=== PATIENT | female | born 1945 | race Caucasian/White ===

== ENCOUNTER 2020-04-02 09:41 | Outpatient (CLI) | payer MEDICARE, SELFPAY ==
--- NOTE | ~2020-04-02 | DEXA_ITS ---
Bone Density Report Name: Emmanuelle Tena Age: 75 Sex: Female Ethnicity: White Date of : 1945 Indication: postmenopausal; height loss; Referring Provider: PHYSICIAN NOT ON STAFF Study: Bone densitometry was performed. Exam Date: April 02, 2020 Accession number: [id number] Bone Density: Region BMD T-score Z-score Classification AP Spine (L1, L2, L3) 0.875 -1.3 0.9 Osteopenia Femoral Neck (Left) 0.708 -1.3 0.7 Osteopenia Total Hip (Left) 0.805 -1.1 0.5 Osteopenia Total Hip Bilateral Avg 0.792 -1.2 0.4 Osteopenia Femoral Neck (Right) 0.698 -1.4 0.6 Osteopenia Total Hip (Right) 0.778 -1.3 0.3 Osteopenia World Health Organization criteria for BMD impression classify patients as: Normal (T-score at or above -1.0), Osteopenia (T-score between -1.0 and -2.5), or Osteoporosis (T-score at or below -2.5). 10-year Fracture Risk(1): Major Osteoporotic Fracture 10% Hip Fracture 1.5% Reported Risk Factors: [place] (), Neck BMD=0.698, BMI=29.2 (1) FRAX(R) Version 3.08. Fracture probability calculated for an untreated patient. Fracture probability may be lower if the patient has received treatment. Clinical Information Provided by Patient: Has used the following medications: Vitamin D Patient maximum height was 66 Menopause Age: 53 Drinks caffeinated beverages Onset of menses at age 13 Number of children 2 Impression: The patient has low bone mass, based on the Right Femoral Neck T-score. The patient has an estimated ten-year risk of hip fracture of 1.5% and an estimated ten-year risk of major fracture of 10%, based on the WHO FRAX algorithm. Discussion: BONE DENSITY IS LOW AT ONE OR MORE SKELETAL SITES. This patient's lowest T-score is low at one or more skeletal sites. It meets the World Health Organization's (WHO) criteria for ?low bone mass? (T-score between -1.0 and -2.5). The patient's 10-year risk of fracture as calculated by FRAX is less than the threshold where pharmacological therapy is recommended by the National Osteoporosis Foundation (NOF). However, all treatment decisions require clinical judgment and consideration of individual patient factors, including patient preferences, comorbidities, previous drug use, risk factors not captured in the FRAX model (e.g., frailty, falls, vitamin D deficiency, increased bone turnover, interval significant decline in bone density) and possible under or overestimation of fracture risk by FRAX. The patient should follow a healthful lifestyle (good nutrition with adequate calcium and vitamin D, and appropriate weight-bearing exercise). Follow-Up: Consider repeating this study in 2 to 3 years to reassess this patient's status, or sooner if there is some new clinical indication. Reported by: ONEIL on 04/02/2020 10:08:00 AM.
== END 2020-04-02 09:42 | disposition home or self-care (01) ==
LOC: ANHIMG 09:48
PROVIDERS: PCP Internal Medicine
DX: N95.9 Unspecified menopausal and perimenopausal disorder (principal); M85.88 Other specified disorders of bone density and structure, other site; M85.852 Other specified disorders of bone density and structure, left thigh; M85.851 Other specified disorders of bone density and structure, right thigh
CPT/HCPCS: 77080

== ENCOUNTER 2020-04-22 10:26 | Outpatient (CLI) | payer MEDICARE, SELFPAY ==
--- NOTE | ~2020-04-22 | MM_ITS ---
EXAMINATION: MM screening cyril BI w sergey HISTORY: Screening mammogram TECHNIQUE: Craniocaudal and mediolateral oblique 3-D tomosynthesis images were obtained and synthetic 2-D images were generated. CAD analysis was submitted and interpreted. COMPARISON: 06/07/2018, 03/31/2017, 03/31/2016 bilateral digital screening mammogram examinations BREAST PARENCHYMAL COMPOSITION: There are scattered areas of fibroglandular density. FINDINGS: There is no evidence of suspicious mass, calcification, or architectural distortion to sugg est malignancy in either breast. There has been no suspicious interval change. IMPRESSION: 1. No mammographic evidence of malignancy. 2. Recommend routine screening mammography in one year. BI-RADS Category 1: Negative Reviewed, dictated and finalized at location A.
== END 2020-04-22 10:27 | disposition home or self-care (01) ==
PROVIDERS: PCP Internal Medicine
DX: Z12.31 Encounter for screening mammogram for malignant neoplasm of breast (principal)
CPT/HCPCS: 77063; 77067

== ENCOUNTER → 2022-11-02 09:35 | Outpatient (CLI) | payer MEDICARE, SELFPAY ==
--- NOTE | ~2022-11-02 | DEXA_ITS ---
Bone Density Report Name: VERÓNICA CRUZ Age: 77 Sex: Female Ethnicity: White Date of : 1945 Indication: postmenopausal; screening for osteoporosis; height loss; prior fracture; Referring Provider: KATIE GREER Study: Bone densitometry was performed. Exam Date: November 02, 2022 Accession number: [id number] Bone Density: Region BMD T-score Z-score Classification AP Spine (L1, L2, L3) 0.880 -1.3 1.1 Osteopenia Femoral Neck (Left) 0.728 -1.1 1.0 Osteopenia Total Hip (Left) 0.823 -1.0 0.8 Normal Femoral Neck (Right) 0.722 -1.1 1.0 Osteopenia Total Hip (Right) 0.776 -1.4 0.5 Osteopenia Total Hip Mean 0.800 -1.2 0.7 Osteopenia World Health Organization criteria for BMD impression classify patients as: Normal (T-score at or above -1.0), Osteopenia (T-score between -1.0 and -2.5), or Osteoporosis (T-score at or below -2.5). 10-year Fracture Risk(1): Major Osteoporotic Fracture 15% Hip Fracture 2.3% Reported Risk Factors: [place] (), Neck BMD=0.722, BMI=31.0, previous fracture (1) FRAX(R) Version 3.08. Fracture probability calculated for an untreated patient. Fracture probability may be lower if the patient has received treatment. Clinical Information Provided by Patient: Has had a low trauma fracture Has used the following medications: Vitamin D, Calcium, Oral steroids Patient maximum height was 65 Menopause Age: 57 Does not regularly consume dairy products Drinks caffeinated beverages Onset of menses at age 14 Number of children 2 Impression: The patient has low bone mass, based on the Right Total Hip T-score. The patient has an estimated ten-year risk of hip fracture of 2.3% and an estimated ten-year risk of major fracture of 15%, based on the WHO FRAX algorithm. The patient has risk factors, including: previous fracture. Discussion: BONE DENSITY IS LOW AT ONE OR MORE SKELETAL SITES. This patient's lowest T-score is low at one or more skeletal sites. It meets the World Health Organization's (WHO) criteria for ?low bone mass? (T-score between -1.0 and -2.5). The patient's 10-year risk of fracture as calculated by FRAX is less than the threshold where pharmacological therapy is recommended by the National Osteoporosis Foundation (NOF). However, all treatment decisions require clinical judgment and consideration of individual patient factors, including patient preferences, comorbidities, previous drug use, risk factors not captured in the FRAX model (e.g., frailty, falls, vitamin D deficiency, increased bone turnover, interval significant decline in bone density) and possible under or overestimation of fracture risk by FRAX. The patient should follow a healthful lifestyle (good nutrition with adequate calcium and vitamin D, and appropriate weight-bearing exercise). Follow-
== END ==
PROVIDERS: PCP Family Medicine
DX: Z78.0 Asymptomatic menopausal state (principal); M85.89 Other specified disorders of bone density and structure, multiple sites
CPT/HCPCS: 77080

== ENCOUNTER 2023-05-21 09:33 | Outpatient (CLI) | payer MEDICARE, SELFPAY ==
--- NOTE | ~2023-05-21 | MM_ITS ---
EXAMINATION: MM screening cyril BI w sergey HISTORY: Screening mammogram TECHNIQUE: Craniocaudal and mediolateral oblique 3-D tomosynthesis images were obtained and synthetic 2-D images were generated. CAD analysis was submitted and interpreted. COMPARISON: 04/22/2020, 06/07/2018 bilateral screening mammogram examinations BREAST PARENCHYMAL COMPOSITION: There are scattered areas of fibroglandular density. FINDINGS: There is no evidence of suspicious mass, calcification, or architectural distortion to sugg est malignancy in either breast. There has been no suspicious interval change. IMPRESSION: 1. No mammographic evidence of malignancy. 2. Recommend routine screening mammography in one year. BI-RADS Category 1: Negative Reviewed, dictated and finalized at location A.
== END 2023-05-21 09:34 | disposition home or self-care (01) ==
PROVIDERS: PCP Family Medicine; Visit Provider Family Medicine
DX: Z12.31 Encounter for screening mammogram for malignant neoplasm of breast (principal)
CPT/HCPCS: 77063; 77067

== ENCOUNTER 2023-10-27 00:21 | Day surgery (SDC) | payer MEDICARE, SELFPAY ==
[2023-10-07 09:27] VITALS: BMI 28.8
--- NOTE | 2023-10-25 09:18 | SUR.PREOP ---
Patient called regarding upcoming procedure. Reviewed preop instructions, appointment times, and procedure prep.
--- NOTE | 2023-10-26 17:56 | PM.HPGS ---
History of Present Illness History of Present Illness Consent: Risks, benefits, and alternatives have been discussed and questions answered. Patient agrees to proceed with procedure. Chief complaint: Ulcerative colitis Narrative: Chantel Tena is a 78 year old female With a history of ulcerative colitis. She had her last colonoscopy 5 years ago. Biopsies then were inactive for colitis. Review of Systems Review of Systems: All systems reviewed & are unremarkable except as noted in HPI and below PMFSH Family History Family History Mother Patient's mother is Social History Social History Smoking status: Never smoker Second hand tobacco smoke exposure: No Alcohol intake: current Drinks per week: 5 Substance use: never Substance use type: does not use Living arrangements: with family Spiritual care concerns: No Meds Home Medications and Allergies Home Medications Medication Instructions Recorded Confirmed Type cholecalciferol (vitamin D3) 100 4,000 unit PO DAILY 09/11/19 10/07/23 History mcg (4,000 unit) capsule fexofenadine 180 mg tablet 180 mg PO DAILY 09/11/19 10/07/23 History (Esther Allergy) fluticasone propionate 50 2 spray intranasal DAILY PRN nasal 09/30/20 10/07/23 Rx mcg/actuation nasal congestion #47.4 mL spray,suspension ropinirole 1 mg tablet 1 mg PO .hs #90 tabs 09/30/20 10/07/23 Rx gabapentin 300 mg capsule 300 mg PO TID #270 caps 04/01/21 10/07/23 Rx sertraline 50 mg tablet (Zoloft) 50 mg PO DAILY #90 tabs 05/12/21 10/07/23 Rx chlorthalidone 25 mg tablet 25 mg PO DAILY 10/07/23 10/07/23 History levothyroxine 88 mcg tablet 88 mcg PO 5XW 10/07/23 10/07/23 History (Levoxyl) loperamide 2 mg capsule 2 mg PO QID PRN Diarrhea 10/07/23 10/07/23 History mesalamine 400 mg capsule (with 400 mg PO TID 10/07/23 10/07/23 History delayed release tablets inside) prednisone 5 mg tablet 5 mg PO TID 10/07/23 10/07/23 History vitamin E acetate 360 mg PO HS 10/07/23 10/07/23 History Allergies Allergy/AdvReac Type Severity Reaction Status Date / Time clindamycin Allergy Intermediate Rash Verified 10/27/23 10:33 Sulfa (Sulfonamide Allergy Intermediate RASH Verified 10/27/23 10:33 Antibiotics) tetracycline Allergy Intermediate FEELS LIKE Verified 10/27/23 10:33 SHE IS CRAWLING THE JACOBSEN adhesive tape Allergy Mild Other Verified 10/27/23 10:33 ampicillin Allergy Mild Rash Verified 10/27/23 10:33 codeine Allergy Mild Nausea Verified 10/27/23 10:33 hydrocodone Allergy Mild Nausea Verified 10/27/23 10:33 Penicillins Allergy Mild Rash Verified 10/27/23 10:33 Exam Const: General: alert Orientation/consciousness: patient oriented x3 Resp: Auscultation: clear to auscultation bilaterally Cardio: Rhythm: regular rhythm GI: GI Palp: Yes Soft to palpation and No Tenderness to palpation present (GI) Neuro: General: patient oriented x3 Assessment and Plan Assessment and plan (1) Ulcerative colitis, unspecified, without complications: Code(s): K51.90 - Ulcerative colitis, unspecified, without complications Status: Acute Assessment and Plan: Colonoscopy with possible biopsy or polypectomy or cautery or injection of substances.
[2023-10-27 10:36] VITALS: BP 114/67; PULSE 66; RESP 18; TEMP 36.3; O2SAT 98
[2023-10-27] MEDS: LACTATED RINGERS 1,000 ML 150 ML IV CONT (10:48)
--- NOTE | 2023-10-27 11:12 | WPDANESEPPF ---
Anes - Initial Pre Proc Eval Procedure: Operation Date: 10/27/23 11:30 Proposed Procedures p Colonoscopy - Tor Rodríguez MD Date/Time: 10/27/23 11:12 Surgeon: Tor Rodríguez MD Pre Op Diagnosis: Ulcerative colitis Patient Data Age: 78 Gender: F Height: 1.64 m Weight: 72.9 kg Last Vital Signs Temp 97.4 F L 10/27/23 10:36 Pulse 66 10/27/23 10:36 Resp 18 10/27/23 10:36 BP 114/67 10/27/23 10:36 Pulse Ox 98 10/27/23 10:36 O2 Del Method Room Air 10/27/23 10:36 Allergies Allergy/AdvReac Type Severity Reaction Status Date / Time clindamycin Allergy Intermediate Rash Verified 10/27/23 10:33 Sulfa (Sulfonamide Allergy Intermediate RASH Verified 10/27/23 10:33 Antibiotics) tetracycline Allergy Intermediate FEELS LIKE Verified 10/27/23 10:33 SHE IS CRAWLING THE JACOBSEN adhesive tape Allergy Mild Other Verified 10/27/23 10:33 ampicillin Allergy Mild Rash Verified 10/27/23 10:33 codeine Allergy Mild Nausea Verified 10/27/23 10:33 hydrocodone Allergy Mild Nausea Verified 10/27/23 10:33 Penicillins Allergy Mild Rash Verified 10/27/23 10:33 Home Medications Medication Instructions Recorded Confirmed Type cholecalciferol (vitamin D3) 100 4,000 unit PO DAILY 09/11/19 10/07/23 History mcg (4,000 unit) capsule fexofenadine 180 mg tablet 180 mg PO DAILY 09/11/19 10/07/23 History (Esther Allergy) fluticasone propionate 50 2 spray intranasal DAILY PRN nasal 09/30/20 10/07/23 Rx mcg/actuation nasal congestion #47.4 mL spray,suspension ropinirole 1 mg tablet 1 mg PO .hs #90 tabs 09/30/20 10/07/23 Rx gabapentin 300 mg capsule 300 mg PO TID #270 caps 04/01/21 10/07/23 Rx sertraline 50 mg tablet (Zoloft) 50 mg PO DAILY #90 tabs 05/12/21 10/07/23 Rx chlorthalidone 25 mg tablet 25 mg PO DAILY 10/07/23 10/07/23 History levothyroxine 88 mcg tablet 88 mcg PO 5XW 10/07/23 10/07/23 History (Levoxyl) loperamide 2 mg capsule 2 mg PO QID PRN Diarrhea 10/07/23 10/07/23 History mesalamine 400 mg capsule (with 400 mg PO TID 10/07/23 10/07/23 History delayed release tablets inside) prednisone 5 mg tablet 5 mg PO TID 10/07/23 10/07/23 History vitamin E acetate 360 mg PO HS 10/07/23 10/07/23 History Patient hx anesthesia problems: none Family hx anesthesia problems: none Results Review: All pre-operative results and documents have been reviewed as part of the pre-operative evaluation. [facility], [facility] Family History Family History Mother Patient's mother is Social History Social History Smoking status: Never smoker Second hand tobacco smoke exposure: No Alcohol intake: current Drinks per week: 5 Substance use: never Substance use type: does not use Living arrangements: with family Spiritual care concerns: No Anes - Eval Final PreProcedure Day of Procedure 10/27/23 11:12 Patient weight: normal Heart: regular rate and rhythm Lungs: clear to auscultation Airway: Mallampati scale class II Neurological: alert and oriented Last oral intake: >/= 8 hours Emergent: no Anesthetic plan: proceed Results Review: All pre-operative results and documents have been reviewed as part of the pre-operative evaluation. Informed Consent: The patient's anesthetic plan and its attendant risks and benefits were discussed with the patient/family/POA. Questions were solicited and answers provided to the satisfaction of the patient/family/POA.
[2023-10-27 11:54] VITALS: BP 91/52; PULSE 54; RESP 18; O2SAT 97
[2023-10-27 12:04] VITALS: BP 95/64; PULSE 59; RESP 16; O2SAT 99
[2023-10-27 12:14] VITALS: BP 137/72; PULSE 60; RESP 20; O2SAT 99
== END 2023-10-27 12:27 | disposition home or self-care (01) ==
PROVIDERS: PCP Family Medicine; Visit Provider Internal Medicine Gastroenterology
PROC: 0DJD8ZZ Inspection of Lower Intestinal Tract, Via Natural or Artificial Opening Endoscopic (ICD-10-PCS; CPT 45378; principal; 2023-10-27 11:30)
DX: K51.90 Ulcerative colitis, unspecified, without complications (principal); D12.5 Benign neoplasm of sigmoid colon; K57.30 Diverticulosis of large intestine without perforation or abscess without bleeding; M06.9 Rheumatoid arthritis, unspecified
CPT/HCPCS: 45380; 88305; J7120

== ENCOUNTER 2024-02-17 14:50 | Outpatient (CLI) | payer MEDICARE, SELFPAY ==
--- NOTE | ~2024-02-17 | CT_ITS ---
EXAMINATION: CT abdomen pelvis wo con DATE: 02/17/2024 15:10 INDICATION: Asymptomatic microscopic hematuria. TECHNIQUE: Computed tomography (CT) of the abdomen and pelvis was performed without intravenous contr ast. Automated exposure control and iterative reconstruction technique were employed. The dose-length product was 368.66 mGy-cm. COMPARISON: CT abdomen and pelvis 06/05/2014 FINDINGS: The visualized portions of the lung bases demonstrate mild atelectasis. No pleural effusion . The heart size is normal. No pericardial effusion. The liver is normal. The gallbladder is contract ed. Calcifications in the spleen are consistent with old granulomatous disease. The pancreas and adre nal glands are normal. There is mild atrophy of right kidney. Left kidney is normal. There is no urol ithiasis. There are fibroids in the uterus. There is a 3.6 cm cyst in left ovary. There is a large vo lume of stool in the colon. There are no pathologically enlarged lymph nodes. There is no free intrap eritoneal fluid. There is severe lumbar spondylosis. IMPRESSION: 1. No urolithiasis. 2. Mild atrophy of right kidney. 3. 3.6 cm cyst in the left ovary, likely benign. Pelvis ultrasound is recommended. Reviewed, dictated and finalized at location E. IMPRESSION: 1. No urolithiasis. 2. Mild atrophy of right kidney. 3. 3.6 cm cyst in the left ovary, likely benign. Pelvis ultrasound is recommend ed.
== END 2024-02-17 14:51 ==
PROVIDERS: Visit Provider Family Medicine
DX: R31.21 Asymptomatic microscopic hematuria (principal); N26.1 Atrophy of kidney (terminal); N83.202 Unspecified ovarian cyst, left side
CPT/HCPCS: 74176

== ENCOUNTER 2024-10-23 13:53 | Outpatient (CLI) | payer MEDICARE, SELFPAY ==
--- NOTE | ~2024-10-23 | MM_ITS ---
EXAMINATION: MM screening cyril BI w sergey HISTORY: Screening TECHNIQUE: Craniocaudal and mediolateral oblique 3-D tomosynthesis images were obtained and synthetic 2-D images were generated. CAD analysis was submitted and interpreted. COMPARISON: Comparison to multiple prior studies sequentially, with oldest reviewed study dated 01/2015. BREAST PARENCHYMAL COMPOSITION: Dense: The breasts are heterogeneously dense, which may obscure small masses FINDINGS: There is no evidence of suspicious mass, calcification, or architectural distortion to sugg est malignancy in either breast. There has been no suspicious interval change. IMPRESSION: 1. No mammographic evidence of malignancy. 2. Recommend routine screening mammography in one year. BI-RADS Category 1: Negative Reviewed, dictated and finalized at location B. [facility]
--- OUTSIDE RECORDS SUMMARY | 2024-10-23 14:03 | XMS_ITS | Referral Summary ---
Author Organization [facility] Address [address] [place] [phone] Care Team Providers Care Seafood Fisherman Name Role Phone Pete Molina MD Primary Care Provider Sergio Eastman MD Unavailable Daylin Wheatley MD Unavailable [phone] Tereso Crocker MD Unavailable [phone] Travis Choudhary MD Unavailable [phone] Gavino Dempsey MD Unavailable Sarah Adkins MD Unavailable [phone] Jak Bobo MD Unavailable [phone] Encounters Date Type Department Care Team Description 10/22/2024 Telephone [facility] Surgery [address] [place] [address] Medical Office Building 4 [address] [place] [address] Jelly Castro RMA 10/22/2024 2:30 PM BUILDING PERFORMANCE CONSULTANT Office Visit [facility] Obstetrics and Gynecology [address] [facility] 7th Floor [address] [place] [address] Pau Angel MD Left ovarian cyst; Uterine leiomyoma, unspecified location; Adenocarcinoma of rectum (HCC); Cyst of ovary, unspecified laterality 10/18/2024 Telephone [facility] Surgery [address] [place] [address] Medical Office Building [address] [place] [phone] Jelly Dunn, LINDA 10/16/2024 Telephone [facility] Ophthalmology [address] [facility] 6th Floor [place] [phone] William Clarke MD 10/11/2024 Orders Only [facility] Gastroenterology at [address] [place] [address] Mark Raines MD Ulcerative colitis without complications, unspecified location (HCC) 10/10/2024 Telephone [facility] Gastroenterology at [address] [place] [address] Mark Raines MD 10/02/2024 9:38 AM BUILDING PERFORMANCE CONSULTANT - 10/02/2024 11:59 PM BUILDING PERFORMANCE CONSULTANT Hospital Encounter [facility] Ambulatory Cancer Building - Radiology [address] [place] [address] Floor 8 [place] [address] Adenocarcinoma of rectum (HCC); Malignant neoplasm of colon, unspecified part of colon (HCC); Polyp of gallbladder Discharge Disposition: Discharge to home or self care 09/27/2024 Telephone [facility] Gastroenterology [address] [facility] Medical Office Building 4, [address] [place] [phone] Myranda Walls RN Follow-up 09/26/2024 10:00 AM BUILDING PERFORMANCE CONSULTANT Lab [facility] [place] - Lab Collection [address] [place] [address] Floor 5 [place] [address] Adenocarcinoma of rectum (HCC); Malignant neoplasm of colon, unspecified part of colon (HCC) 09/26/2024 9:45 AM BUILDING PERFORMANCE CONSULTANT Lab [facility] Oncology Lab [address] [place] [address] Floor 5 [place] [address] Adenocarcinoma of rectum (HCC); Malignant neoplasm of colon, unspecified part of colon (HCC) 09/26/2024 10:30 AM BUILDING PERFORMANCE CONSULTANT Office Visit [facility] Oncology [address] [place] [address] Floor 5 [place] [address] Sarah Adkins MD Adenocarcinoma of rectum (HCC) (Primary Dx); Malignant neoplasm of colon, unspecified part of colon (HCC); Polyp of gallbladder; Cyst of ovary, unspecified laterality 09/25/2024 5:14 PM BUILDING PERFORMANCE CONSULTANT - 09/25/2024 11:59 PM BUILDING PERFORMANCE CONSULTANT Hospital Encounter [facility] Rad[facility] [address] [place] [address] Aortitis (CMS/HCC) (HCC) Discharge Disposition: Discharge to home or self care 09/25/2024 5:13 PM BUILDING PERFORMANCE CONSULTANT - 09/25/2024 11:59 PM BUILDING PERFORMANCE CONSULTANT Hospital Encounter [facility] Radiology [facility] [address] [place] [address] Pancreatic cyst Discharge Disposition: Discharge to home or self care 09/20/2024 8:46 AM BUILDING PERFORMANCE CONSULTANT Anesthesia Event [facility] Endoscopy [address] [place] [address] Spencer Milian MD 09/20/2024 8:45 AM BUILDING PERFORMANCE CONSULTANT - 09/20/2024 9:15 AM BUILDING PERFORMANCE CONSULTANT Surgery [facility] Endoscopy [address] [place] [address] Jak Bobo MD SIGMOID INJECTION SUBMUCOSAL 09/20/2024 7:39 AM BUILDING PERFORMANCE CONSULTANT - 09/20/2024 9:43 AM BUILDING PERFORMANCE CONSULTANT Hospital Encounter [facility] Endoscopy [address] [place] [address] Jak Bobo MD Rectal cancer (CMS/HCC) (HCC) Discharge Disposition: Discharge to home or self care 09/19/2024 Telephone [facility] Oncology [facility] Floor 5 [place] [phone] Muriel Correa, LINDA 09/19/2024 Telephone [facility] Obstetrics and Gynecology [address] [place] [phone] Jill Damon Scheduling Appointments 09/19/2024 9:00 AM BUILDING PERFORMANCE CONSULTANT Office Visit [facility] Surgery [address] [place] [address] Medical Office Building 4 [address] [place] [phone] Jak Bobo MD Adenocarcinoma of rectum (HCC) 09/17/2024 Telephone [facility] Specialty Services [address] [place] [address] Madison Wolff, LINDA GI Preprocedure 09/14/2024 Orders Only [facility] Gastroenterology at [place] [address] [facility] [address] [place] [phone] Mark Raines MD Pancreatic cyst (Primary Dx) 09/12/2024 Telephone [facility] Obstetrics and Gynecology [address] [place] [address] Jill Damon Scheduling Appointments 09/11/2024 Orders Only [facility] Oncology [facility] Floor 5 [place] [address] Muriel Correa RN Adenocarcinoma of rectum (HCC) (Primary Dx); Left ovarian cyst; Aortitis (CMS/HCC) (HCC); Uterine leiomyoma, unspecified location; Pancreatic cyst 09/10/2024 Telephone [facility] Oncology [address] [facility] 5 [place] [address] Sarah Adkins MD 08/30/2024 7:25 PM BUILDING PERFORMANCE CONSULTANT - 08/30/2024 11:59 PM BUILDING PERFORMANCE CONSULTANT Hospital Encounter [facility] Radiology [facility] [address] [place] [address] Adenocarcinoma of rectum (HCC); Malignant neoplasm of colon, unspecified part of colon (HCC) Discharge Disposition: Discharge to home or self care 08/23/2024 5:45 PM BUILDING PERFORMANCE CONSULTANT Office Visit [facility] Convenient Care at [address] [address] More Arechiga NP Acute non-recurrent maxillary sinusitis (Primary Dx); Nasal congestion; Antibiotic-induced yeast infection 08/23/2024 Telephone [facility] Primary Care at [address] [address] Pete Molina MD Sinusitis 08/23/2024 1:42 PM BUILDING PERFORMANCE CONSULTANT - 08/23/2024 11:59 PM BUILDING PERFORMANCE CONSULTANT Hospital Encounter [facility] [place] [address] [place] [address] Malignant neoplasm of colon, unspecified part of colon (HCC) Discharge Disposition: Discharge to home or self care 08/23/2024 11:30 AM BUILDING PERFORMANCE CONSULTANT Office Visit [facility] [address] [facility] [address] [place] [address] Demetra Baumann, OD Glaucoma suspect of both eyes [H40.003] (Primary Dx); Dermatochalasis of both upper eyelids; Pseudophakia of both eyes 08/16/2024 Telephone [facility] Gastroenterology at [address] [place] [phone] Mark Raines MD 08/15/2024 1:00 PM BUILDING PERFORMANCE CONSULTANT Office Visit [facility] Oncology [address] [facility] Floor 5 [place] [address] Sarah Adkins MD Adenocarcinoma of rectum (HCC) (Primary Dx); Malignant neoplasm of colon, unspecified part of colon (HCC) 08/13/2024 Orders Only [facility] Gastroenterology at [address] [place] [phone] Mark Raines MD 08/10/2024 Orders Only [facility] Gastroenterology at [address] [place] [phone] Mark Raines MD Malignant neoplasm of colon, unspecified part of colon (HCC) (Primary Dx) 08/10/2024 Orders Only [facility] Gastroenterology at [address] [place] [phone] Mark Raines MD Ulcerative colitis with complication, unspecified location (HCC) (Primary Dx); Malignant neoplasm of colon, unspecified part of colon (HCC) 07/31/2024 10:35 AM BUILDING PERFORMANCE CONSULTANT Anesthesia Event [facility] [address] [place] [address] Ke Purcell MD 07/31/2024 10:30 AM BUILDING PERFORMANCE CONSULTANT - 07/31/2024 11:00 AM BUILDING PERFORMANCE CONSULTANT Surgery [facility] [address] [place] [address] Mark Raines MD COLON REMOVAL SNARE 07/31/2024 9:11 AM BUILDING PERFORMANCE CONSULTANT - 07/31/2024 12:00 PM [facility] Hospital Encounter [facility] [address] [place] [address] Mark Raines MD Ulcerative colitis with complication, unspecified location (HCC) Discharge Disposition: Discharge to home or self care from Last 3 Months Allergies Active Allergy Reactions Criticality Noted Date Comments Clindamycin Rash Medium 12/21/2023 Erythromycin Rash Medium 08/15/2024 Hydrocodone-Acetaminophen Itching Low 07/29/2017 Latex Rash Medium 05/31/2023 Penicillins Rash Medium 07/29/2017 Sulfa Itching Low 07/29/2017 Sulfacetamide Itching Low 07/29/2017 Tetracycline Rash Medium 07/29/2017 Tramadol Itching Low 07/29/2017 Medications fluticasone propionate (FLONASE) 50 mcg/actuation nasal sprayIndications: Allergic Rhinitis Administer 1 spray into each nostril daily before breakfast Active fexofenadine (DELANEY) 180 mg tabletIndications :allergeis Take 1 tablet (180 mg total) by mouth daily before breakfast Active vitamin E 400 unit capsuleIndication s:health Take 1 capsule (400 Units total) by mouth daily before breakfast Active cholecalciferol 25 mcg (1,000 unit) tabletIndications :Vitamin D Deficiency Take 1 tablet (1,000 Units total) by mouth daily before breakfast Active albuterol HFA (Proventil HFA) 90 mcg/actuation inhalerIndication s:Bronchospasm Prevention Inhale 2 puffs every 6 (six) hours as needed for wheezing or shortness of breath 6.73 each 4 024 Active chlorthalidone (HYGROTON) 25 mg tabletIndications :CKD (chronic kidney disease), symptom management only, stage 1 Take 1 tablet (25 mg total) by mouth daily 90 tablet 3 024 2024 Active Additional Information Patient taking differently:25 mg oralDaily before breakfast, Indications: hypertension, Informant: Self, Reported on 10/22/2024 sertraline (ZOLOFT) 50 mg tabletIndications :Major depressive disorder, recurrent, mild (HCC) Take 1 tablet (50 mg total) by mouth daily 90 tablet 3 024 2024 Active Additional Information Patient taking differently:50 mg oralDaily before breakfast, Indications: Anxiety with Depression, Informant: Self, Reported on 10/22/2024 gabapentin (NEURONTIN) 300 mg capsuleIndication s:Neuropathic Pain,Restless Legs Syndrome Take 1 capsule (300 mg total) by mouth 3 (three) times a day 270 capsule 1 024 Active Additional Information Patient taking differently:300 mg oral2 times daily, Indications: Neuropathic Pain, Informant: Self, Reported on 10/22/2024 LevoxyL 88 mcg tabletIndications :Hypothyroidism, unspecified type TAKE 1 TABLET EARLY MORNINGBEFORE BREAKFAST 90 tablet 1 024 Active Additional Information Patient taking differently: 88 mcg oral Daily (early AM), Indications: hypothyroidism, Informant: Self, Reported on 10/22/2024 loperamide (IMODIUM) 2 mg capsule Take 1 capsule (2 mg total) by mouth 2 (two) times a day as needed for diarrhea Active fluconazole (DIFLUCAN) 150 mg tabletIndications :Antibiotic-induc ed yeast infection Take 1 tablet on day 4 of antibiotic. May repeat dose in 3 days if you experience symptoms of a yeast infection. 2 tablet 024 Active ciclopirox (PENLAC) 8 % solutionIndicatio ns:onychomycosis due to dermatophyte Apply 1 Application topically nightly 025 Active mesalamine (DELZICOL) 400 mg capsule (with del rel tablets)Indicatio ns:Ulcerative colitis without complications, unspecified location (HCC) Take 1 capsule (400 mg total) by mouth 3 (three) times a day 90 capsule 3 025 Active Additional Information Patient taking differently:400 mg oral 3 times daily,Indications: Ulcerative Colitis, Informant: Self, Reported on 10/22/2024 rOPINIRole (REQUIP) 1 mg tabletIndications :Restless legs syndrome TAKE 1 TABLET NIGHTLY 90 tablet 025 Active Additional Information Patient taking differently:1 mgoralNightly,Indications: Restless Legs Syndrome, Informant: Self, Reported on 10/22/2024 polyethylene glycol (MIRALAX) 17 gram/dose bulk powder Take 238 g by mouth once for 1 dose The day before surgery mix 238 grams Miralax with 64 ounces clear liquid. 11 AM begin drinking Miralax 8 ounces every 15 minutes until finished for bowel evacuation. 238 g 025 Active bisacodyL 5 mg tablet The day before surgery take 2 tabs at 10 am with 8 oz of clear liquid. At 12 pm, take 2 more tabs with 8 oz of clear liquid. 4 tablet Active neomycin (MYCIFRADIN) 500 mg tablet The day before surgery take neomycin 1000 mg (2 tablets) by mouth at 1 PM, 2 PM, and 10 PM. 6 tablet 025 Active metroNIDAZOLE (FLAGYL) 500 mg tablet The day before surgery take metronidazole (Flagyl) 500 mg by mouth at 1 PM, 2 PM, and 10 PM. 3 tablet 025 Active acetaminophen ER (TYLENOL) 650 mg 8 hr tablet Take 2 tablets (1,300 mg total) by mouth every 8 (eight) hours as needed for pain Active artificial tears (SYSTANE) 0.3 % gel Apply 1 drop to both eyes 3 (three) times a day as needed (dry eye) Active vitamin B complex capsuleIndication s:Vitamin Deficiency Prevention Take 1 capsule by mouth daily before breakfast Active umeclidinium-yola nteroL (ANORO ELLIPTA) 62.5-25 mcg/actuation blister with device Inhale 1 puff every 6 (six) hours as needed (shortness of breath) Active rOPINIRole (REQUIP) 1 mg tabletIndications :Restless legs syndrome Take 1 tablet (1 mg total) by mouth nightly 90 tablet 3 024 2024 Discontinued tavaborole 5 % solution with applicator APPLY TO AFFECTED NAILS DAILY X48 WEEKS, THEN USE TWICE A WEEK TO PREVENT RECURRENCES 024 2024 Discontinued(T herapy completed) cyanocobalamin (Vitamin B-12) 500 mcg tablet Take 1 tablet (500 mcg total) by mouth daily 2024 Discontinued(T herapy completed) mesalamine (DELZICOL) 400 mg capsule (with del rel tablets)Indicatio ns:Ulcerative colitis without complications, unspecified location (HCC) Take 1 capsule (400 mg total) by mouth 3 (three) times a day 90 capsule 3 024 2024 Discontinued(R eorder) Jublia 10 % solution with applicator 025 2024 Discontinued(T herapy completed) ondansetron ODT (ZOFRAN-ODT) 8 mg disintegrating tablet Take 1 tablet (8 mg total) by mouth once for 1 dose The day before surgery take one tablet (8 mg) at 11:00 to prevent nausea. 1 tablet 025 2024 Active Problems Problem Noted Date Diagnosed Date Left ovarian cyst 10/22/2024 Assessment & Plan (10/22/2024 3:03 PM BUILDING PERFORMANCE CONSULTANT): Cyst of the left ovary seen on MRI as part of monitoring for her new rectal cancer dignosis Reviewed MRI findings 08/2024 simple appearing 4 cm NATALIE cyst, ORADS 2-3 Plan for pelvic US to monitor cyst Reviewed options of surgical removal vs monitoring given appearance of simple cyst Patient prefers avoiding surgery and would prefer for conservative management and monitoring Will review pelvic US images at next visit Rectal cancer (CMS/HCC) 09/19/2024 Glaucoma suspect of both eyes [H40.003] 08/23/20 Assessment & Plan (08/23/2024 12:24 PM BUILDING PERFORMANCE CONSULTANT): Uses flonase daily Borderline intraocular pressure (IOP) Ou Slight thin CCT OD, slightly thick left eye (OS) Normal RNFL both eyes (OU) Fu 6 months Boateng visual field (HVF) and intraocular pressure (IOP) check Dermatochalasis of both upper eyelids 08/23/2024 Assessment & Plan (08/23/2024 12:25 PM BUILDING PERFORMANCE CONSULTANT): Pt requests consult for poss blepharoplasty. Refer to oculoplastics for eval Adenocarcinoma of rectum 08/13/2024 Ulcerative colitis with complication 07/19/2024 Acute recurrent maxillary sinusitis 12/25/2023 Assessment & Plan (12/25/2023 8:15 PM CDT): Will do 5 days of Levaquin. Tessalon Perles. Prednisone taper. Chest x-ray for ongoing cough to rule out pneumonia. CBC ordered Acute cough 12/25/2023 Dysuria 12/25/2023 Assessment & Plan (12/25/2023 8:16 PM CDT): Will send urine for culture to rule out UTI Ulcerative colitis without c omplications, unspecified location 11/22/2023 Chronic obstructive pulmonary disease, unspecifi ed 11/22/2023 Overweight (BMI 25.0-29.9) 05/24/2023 Assessment & Plan (05/24/2023 3:42 PM CDT): Body mass index is 29.68 kg/m . - advised patient on importance of maintaining a diet and exercise regimen including cardiovascular and weight-bearing exercises SOB (shortness of breath) 02/02/2023 Assessment & Plan (02/02/2023 9:47 AM CDT): PFT ordered I will go ahead and get a CT as well to evaluate further, given the mild opacities seen on xray (likely scarring or chronic change, but will reevaluate) Spiriva trial Hypercholesterolemia 11/10/2022 Polymyalgia rheumatica syndrome (CMS/HCC) 2022 Overview (10/21/2022): Likely onset late 07/2022 with recent rapid and complete response when prescribed prednisone 20 mg/d x 7d (from ED). Last dose taken 4 days ago. Assessment & Plan (05/24/2023 3:45 PM CDT): Pt is a currently taking prednisone 15mg daily. 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 - will contineu medication per rheumatology. Lymphedema of both lower extremities 10/08/2022 Intermittent tremor 10/08/2022 IBS (irritable bowel syndrome) 10/08/2022 Assessment & Plan (05/24/2023 3:44 PM CDT): Pt is well controlled on current regimen. She has an appointment in 2023 for colonoscopy. - continue follow up w/ GI - continue mesalamine 400mg BID Hypothyroidism 10/08/2022 Assessment & Plan (05/24/2023 3:42 PM CDT): Pt is a tolerating her medications well. Has not had any s/s hypo/hyperthyroidism. - continue levoxyl - will do TSH w/ rflx to T4 Seasonal allergic rhinitis 10/08/2022 Venous insufficiency 10/08/2022 Depressive disorder 10/08/2022 Fibroid, uterine 10/08/2022 Pain due to varicose veins of both lower extremi ties 10/08/2022 Anxiety 10/08/2022 CKD (chronic kidney disease) , symptom management only, stage 1 12/28/2021 Assessment & Plan (12/28/2021 4:25 PM CDT): BP is well controled We will discontinue Crestor, watch lipids. Would recommend adding fish oil and possibly red yeast rice supplement Major depressive disorder, recurrent, mild 12/28 Assessment & Plan (05/24/2023 3:44 PM CDT): Mood is well controlled w/ zoloft. - continue zoloft 50mg daily Chest pain 12/02/2021 Assessment & Plan (12/02/2021 9:00 PM CDT): Start aspirin 81 mg daily (OTC); the EKG was curious, though not floridly showing heart attack or blockage. Not having a previous EKG is a bit frustrating, as it might show the same pattern and reduce the acuity Given the uncertainty, I will also have her start Crestor for risk reduction. Stress test ordered (nuclear scan) out of the abundance of caution; would like that scheduled CARIDAD If chest pain resumes/recurs, it would be a good idea to be checked at ER caridad TIA is possible, but I don't think the symptoms are declarative, necessarily Encounter for Medicare annual wellness exam 03/2022 Assessment & Plan (11/11/2021 12:33 PM BUILDING PERFORMANCE CONSULTANT): A initial Medicare Annual Wellness Visit has been performed today. Emmanuelle Cruz is not up to date on screening tests. She is in need of DEXA, Breast cancer screening and hepatitis C screening- these have been ordered. She is up to date on needed preventative vaccinations Awaiting labs, screening test We will get the colonoscopy report from Dr. Choudhary Continuing the current regimen; call us when refills needed Polyneuropathy 11/07/2020 Assessment & Plan (05/24/2023 3:48 PM CDT): Pt states that she is tolerating her gabapentin well and would like a refill on this. - continue neurontin 300mg TID Assessment & Plan (12/23/2021 1:46 PM CDT): 76 year old who presents with predominant paresthesias/small fiber neuropathy symptoms for almost a decade that began in non-length dependent pattern and with fairly normal exam. She reports EMG confirmed neuropathy, but prior testing unavailable and symptom shave bene largely stable and well managed with gabapentin 300 TID. She feels control has been good over the last year and has no questions/concerns. I reviewed that one year follow-up for refills could be reasonable, although given long-term stability and good response to gabapentin, could follow-up for refills with PCP and return as needed if change. Assessment & Plan (11/07/2020 1:52 PM BUILDING PERFORMANCE CONSULTANT): 75 year old with atypical onset neuropathy in that she first noticed symptoms in bilateral arms then hands then feet/legs It has been unchanged for almost 10 years and she reports EMG/NCS 'just showed neuropathy. I discussed that this onset is atypical but given stability would not recommend aggressive additional work-up. She does not believe any work-up was done other the EMG/NCS so I suggested obtaining B12/vit E/Copper and SPEP/immunofix. We discussed rare possibility of spinal cause of neuropathy like symptoms (although EMG/NCS reportedly confirmed neuropathy and symptoms stable without other spinal findings). Small fiber neuropathy remains consideration, particularly if prior EMG/NCS was actually unrevealing for finding (but still potentially consistent with small fiber neuropathy). She will update me if change, but otherwise finds gabapentin 300 BID controls her symptoms fairly well, although is interested in increase to 300 TID for daytime nuisance symptoms RTC in 6 months Resting tremor 11/07/2020 Assessment & Plan (12/23/2021 1:47 PM CDT): Reports tremors have really only occurred with stressed in the interim and she denies other change/issue Remains without clear parkinsonism otherwise, so reassured and offered re- evaluation as needed for change/issue She has had falls that she related 'to my own stupidity' and I encouraged efforts to avoid falls going forward, but walking is without issue/concern today Can re-examine in 1 year or if change Assessment & Plan (11/07/2020 1:45 PM BUILDING PERFORMANCE CONSULTANT): has noticed mild resting tremor in right hand She has not other bradykinesia, rigidity, cogwheeling or gait disturbance to suggest PD, although has discussed with prior neurologist that PD is one possibility I do no feel strongly about this and suggested continued observation and to call if change/new symptoms given otherwise benign exam and mild symptoms Dry eye syndrome of both eyes 10/14/2020 Assessment & Plan (10/14/2020 11:32 AM BUILDING PERFORMANCE CONSULTANT): Uses afts at bedtime (qhs). Occasionally uses during the day. Add hot compresses. Pseudophakia of both eyes 06/05/2019 Overview (10/14/2020): Phaco/ intraocular lens (IOL) both eyes (OU)- Negro 06/05/19- YAG cap right eye (OD)- LMT 08/14/19- YAG cap left eye (OS)- LMT Assessment & Plan (08/23/2024 12:26 PM BUILDING PERFORMANCE CONSULTANT): 06/05/19- YAG cap right eye (OD)- LMT 08/14/19- YAG cap left eye (OS)- LMT Well healed after YAG cap both eyes (OU). Implants in good position. Vision stable. Assessment & Plan (10/14/2020 11:33 AM BUILDING PERFORMANCE CONSULTANT): From Americo Tom MD Initially happy but has gotten worse with PCO changes 06/05/19- YAG cap right eye (OD)- LMT 08/14/19- YAG cap left eye (OS)- LMT Well healed after YAG cap both eyes (OU). Implants in good position. Vision stable. Explained OTC readers are typical after regular cataract extraction (CE) both eyes (OU) with aim plano. Assessment & Plan (10/12/2019 10:53 AM BUILDING PERFORMANCE CONSULTANT): Well healed s/p yag cap OU. Return to routine follow up care annually. 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 - check CBC and ferritin today Assessment & Plan (12/23/2021 1:39 PM CDT): requip 1 mg at bedtime Assessment & Plan (11/07/2020 1:46 PM BUILDING PERFORMANCE CONSULTANT): I would agree she reports symptoms consistent with RLS that have been long- standing and well controlled with activity and requip 1 mg at bedtime for years Offered ferritin since it is not clear this has been checked and she has a history of iron deficiency in setting of GI bleeding from her colitis. Continue current management otherwise Primary hypertension Overview (05/12/2022): Hypertension Resolved Problems Problem Noted Date Diagnosed Date Resolved Date Bilateral posterior capsular opacification 06/05/2019 10/14/2020 Overview (06/05/2019): Americo tom- 2016- AUOOTO Assessment & Plan (10/14/2020 10:30 AM BUILDING PERFORMANCE CONSULTANT): Pt happy after YAG right eye (OD). Vis sig left eye (OS). Visually significant PCO left eye (OS). R/b/a discused and the patient decided to proceed. All questions were answered. (also see Procedure note) After proper consent was obtained, the patient was carefully transported to the laser room where the operative eye was anesthetized. Using a contact lens, an opening was created in the posterior capsule without difficulty. The lens was then removed, the eye irrigated, and postop drops given. The patient left the laser suite in good condition and the intraocular pressure was checked 60 minutes post-op in the office. Assessment & Plan (08/16/2019 5:47 PM BUILDING PERFORMANCE CONSULTANT): Pt happy after YAG right eye (OD). Vis sig left eye (OS). Visually significant PCO left eye (OS). R/b/a discused and the patient decided to proceed. All questions were answered. (also see Procedure note) After proper consent was obtained, the patient was carefully transported to the laser room where the operative eye was anesthetized. Using a contact lens, an opening was created in the posterior capsule without difficulty. The lens was then removed, the eye irrigated, and postop drops given. The patient left the laser suite in good condition and the intraocular pressure was checked 60 minutes post-op in the office. Assessment & Plan (06/05/2019 11:45 AM CDT): Visually significant PCO right eye (OD). R/b/a discused and the patient decided to proceed. All questions were answered. Immunizations Immunization Administration Dates Next Due Influenza, Quad, Adjuvantate d, Intramuscular 06/18/2021,06/11/2020 Influenza, Trivalent, Adjuva nted, Intramuscular 06/29/2017 Influenza, Trivalent, High D ose, Split, Preservative Free, Intramuscular 06/04/2019,06/28/2016,06/25/2015,07/01 Influenza, Trivalent, IM (MDV) 06/27/2014,2012 Influenza, Unspecified 06/21/2023,10/06/ 2023(Deferred: Patient Refused),09/05/2022(Deferred: Patient Refused),09/05/2022(Deferred: Patient Refused),06/11/2022(Deferred: Patient Refused),09/05/2021(Deferred: Patient Refused),06/06/2021,06/06/2021, 014 Pfizer SARS-CoV-2 Monovalent Vaccination (12+ Yrs) PURPLE 06/22/2021,06/22/2021,11/08/2020,11/08,10/18/2020,10/18/2020 Pneumococcal Conjugate PCV 13 06/28/2016 Pneumococcal Polysaccharide PPV23 06/12/2018,,06/05/2008 ZOSTER Recombinant 02/03/2021,,12/05/2020,09/30,09/07/2020,09/07/2020 Social History Tobacco Use Types Packs/Day Years Used Date Smoking Tobacco: Never Passive Smoke Exposure: Never Smokeless Tobacco: Never Tobacco Cessation:Counseling Given: Not Answered Alcohol Use Standard Drinks/Week Comments No 0 (1 standard drink = 0.6 oz pur e alcohol) AUDIT-C Answer Date Recorded Q1: How often do you have a drink containing alc ohol? 2-4 times a month 10/22/2024 Q2: How many drinks containi ng alcohol do you have on a typical day when you are drinking? 1 or 2 10/22/2024 Q3: How often do you have si x or more drinks on one occasion? Never 10/22/2024 PHQ-2 Answer Date Recorded PHQ-2 Total Score (If total score is 3 or more points, staff should administer the PHQ-9) 0 08/23/2024 [facility] - Occupational Stress Questionnaire Answer Date Recorded Do you feel stress - tense, restless, nervous, or anxious, or unable to sleep at night because your mind is troubled all the time - these days? Only a little 11/09/2021 Personal Safety Answer Date Recorded Have you ever been in or are you currently in a harmful physical or emotional relationship or is someone making you feel afraid or unsafe? Denies 09/20/2024 Education Answer Date Recorded What is the highest level of school you have completed or the highest degree you have received? 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 Not on file Not on file Last Filed Vital Signs Vital Sign Reading Time Taken Comments Blood Pressure 155/82 10/22/2024 2:20 PM BUILDING PERFORMANCE CONSULTANT Pulse 65 09/26/2024 9:58 AM BUILDING PERFORMANCE CONSULTANT Temperature 36.3 C (97.3 F) 09/26/2024 9:58 AM BUILDING PERFORMANCE CONSULTANT Respiratory Rate 20 09/26/2024 9:58 AM BUILDING PERFORMANCE CONSULTANT Oxygen Saturation 98% 09/26/2024 9:58 AM BUILDING PERFORMANCE CONSULTANT Inhaled Oxygen Concentration - - Weight 77.1 kg (170 lb) 10/22/2024 2:20 PM BUILDING PERFORMANCE CONSULTANT Height 162.6 cm (5' 4 ) 10/22/2024 2:20 PM BUILDING PERFORMANCE CONSULTANT Body Mass Index 29.18 10/22/2024 2:20 PM BUILDING PERFORMANCE CONSULTANT Plan of Treatment Upcoming Encounters Date Type Department Care Team (Latest Contact Info) Description 11/09/2024 7:15 AM BUILDING PERFORMANCE CONSULTANT Hospital Encounter [facility] Operating Room [address] [id number] Jak Bobo MD [address] [facility] [phone] [place] [address] 11/09/2024 7:15 AM BUILDING PERFORMANCE CONSULTANT - 11/09/2024 9:15 AM BUILDING PERFORMANCE CONSULTANT Surgery [facility] Operating Room [address]12 [address] [id number] Jak Bobo MD [address] [facility] [phone] [place] [address] ENDOSCOPIC TRANSANAL MICROSURGERY Scheduled Procedures Name Priority Associated Diagnoses Date/Ti me ENDOSCOPIC TRANSANAL MICROSURGERY Rectal cancer (CMS/HCC) (HCC) 11/09/2024 7:15 AM BUILDING PERFORMANCE CONSULTANT Procedures Procedure Name Priority Date/Time Associated Diagnosis Comments US GALLBLADDER Schedule Routine, Read Routine (OP Routine) 10/02/2024 10:41 AM BUILDING PERFORMANCE CONSULTANT Adenocarcinoma of rectum (HCC) Malignant neoplasm of colon, unspecified part of colon (HCC) Polyp of gallbladder EGFR STAT 09/26/2024 9:44 AM BUILDING PERFORMANCE CONSULTANT Adenocarcinoma of rectum (HCC) Malignant neoplasm of colon, unspecified part of colon (HCC) DIFFERENTIAL AUTO Routine 09/26/2024 9:4 4 AM BUILDING PERFORMANCE CONSULTANT Adenocarcinoma of rectum (HCC) Malignant neoplasm of colon, unspecified part of colon (HCC) APTT Routine 09/26/2024 9:44 AM BUILDING PERFORMANCE CONSULTANT Adenocarcinoma of rectum (HCC) Malignant neoplasm of colon, unspecified part of colon (HCC) CBC WITH AUTO DIFFERENTIAL Routine 09/26/2024 9:44 AM BUILDING PERFORMANCE CONSULTANT Adenocarcinoma of rectum (HCC) Malignant neoplasm of colon, unspecified part of colon (HCC) CEA Routine 09/26/2024 9:44 AM BUILDING PERFORMANCE CONSULTANT Adenocarcinoma of rectum (HCC) Malignant neoplasm of colon, unspecified part of colon (HCC) COMPREHENSIVE METABOLIC PANEL STAT 09/26/2024 9:44 AM BUILDING PERFORMANCE CONSULTANT Adenocarcinoma of rectum (HCC) Malignant neoplasm of colon, unspecified part of colon (HCC) PROTIME-INR Routine 09/26/2024 9:44 AM BUILDING PERFORMANCE CONSULTANT Adenocarcinoma of rectum (HCC) Malignant neoplasm of colon, unspecified part of colon (HCC) ERYTHROCYTE SEDIMENTATION RATE Routine 09/26/2024 9:44 AM BUILDING PERFORMANCE CONSULTANT Adenocarcinoma of rectum (HCC) CRP (ACUTE PHASE) Routine 09/26/2024 9:4 4 AM BUILDING PERFORMANCE CONSULTANT Adenocarcinoma of rectum (HCC) CTA ABDOMEN PELVIS W WO CONTRAST Schedule Routine, Read Routine (OP Routine) 09/25/2024 7:46 PM BUILDING PERFORMANCE CONSULTANT Aortitis (CMS/HCC) (HCC) MRI ABDOMEN PANCREAS W WO CONTRAST Schedule Routine, Read Routine (OP Routine) 09/25/2024 7:15 PM BUILDING PERFORMANCE CONSULTANT Pancreatic cyst SURGICAL PATHOLOGY Routine 09/20/2024 9: 03 AM BUILDING PERFORMANCE CONSULTANT Rectal cancer (CMS/HCC) (HCC) ENDO ADD ON SIGMOID BIOPSY 09/20/2024 8:44 AM BUILDING PERFORMANCE CONSULTANT Rectal cancer (CMS/HCC) (HCC) SIGMOID INJECTION SUBMUCOSAL 09/20/2024 8:44 AM BUILDING PERFORMANCE CONSULTANT Rectal cancer (CMS/HCC) (HCC) FLEXIBLE SIGMOIDOSCOPY 09/20/2024 8:35 AM BUILDING PERFORMANCE CONSULTANT MRI PELVIS RECTAL CANCER W WO CONTRAST Schedule Routine, Read Routine (OP Routine) 08/30/2024 8:58 PM BUILDING PERFORMANCE CONSULTANT Adenocarcinoma of rectum (HCC) Malignant neoplasm of colon, unspecified part of colon (HCC) POC INFLUENZA A/B, COVID-19 ANTIGEN Routine 08/23/2024 6:02 PM BUILDING PERFORMANCE CONSULTANT Nasal congestion CT CHEST ABDOMEN PELVIS W CONTRAST Schedule Routine, Read Routine (OP Routine) 08/23/2024 1:53 PM BUILDING PERFORMANCE CONSULTANT Malignant neoplasm of colon, unspecified part of colon (HCC) OCT, OPTIC NERVE - OU - BOTH EYES Routine 08/23/2024 12:26 PM BUILDING PERFORMANCE CONSULTANT Glaucoma suspect of both eyes [H40.003] CREATININE Routine 08/13/2024 10:20 AM BUILDING PERFORMANCE CONSULTANT TSH Routine 08/13/2024 8:10 AM BUILDING PERFORMANCE CONSULTANT Acquired hypothyroidism LIPID PANEL Routine 08/13/2024 8:10 AM BUILDING PERFORMANCE CONSULTANT Hypercholesterolemia COMPREHENSIVE METABOLIC PANEL Routine 08/13/2024 8:10 AM BUILDING PERFORMANCE CONSULTANT Hypercholesterolemia CBC WITH AUTO DIFFERENTIAL Routine 08/13/2024 8:10 AM BUILDING PERFORMANCE CONSULTANT Hypercholesterolemia SURGICAL PATHOLOGY Routine 07/31/2024 10:45 AM BUILDING PERFORMANCE CONSULTANT Ulcerative colitis with complication, unspecified location (HCC) COLONOSCOPY 07/31/2024 10:41 AM BUILDING PERFORMANCE CONSULTANT ENDO ADD ON COLON BIOPSY 07/31/2024 10:35 AM BUILDING PERFORMANCE CONSULTANT Ulcerative colitis with complication, unspecified location (HCC) COLON REMOVAL SNARE 07/31/2024 10:35 AM BUILDING PERFORMANCE CONSULTANT Ulcerative colitis with complication, unspecified location (HCC) ECG 12-LEAD STAT 07/31/2024 10:02 AM BUILDING PERFORMANCE CONSULTANT HM MAMMOGRAPHY Routine 05/21/2023 DEXA AXIAL SKELETON BONE DENSITY 1 OR MORE SITES Schedule Routine, Read Routine (OP Routine) 12/10/2021 11:19 AM CDT Screening for osteoporosis Asymptomatic menopausal state HEPATITIS C ANTIBODY Routine 11/30/2021 10:49 AM CDT Encounter for hepatitis C screening test for low risk patient from Last 3 Months or Most Recently Relevant to Health Maintenance Results * US Gallbladder (10/02/2024 10:41 AM BUILDING PERFORMANCE CONSULTANT) Anatomical Region Laterality Modality Abdomen N/A Ultrasound 10/02/2024 11:1 2 AM BUILDING PERFORMANCE CONSULTANT Impressions 10/02/2024 2:22 PM BUILDING PERFORMANCE CONSULTANT 1. 4 mm, pyga-mh-epe-wall gallbladder polyp without definitive gallbladder wall thickening, which requires no further follow-up per SRU guidelines. Malika A, Elizabeth C, Chula JL, Lou DT, Baltazar AJ, Trevor Y, Abhijit DB, Teddy MT, Goldie N, Ethan H, Gauri WG, Marc MR, Maday SK, Maricel ME, Keshav X, Velazquez Y, Chanel WD. Management of Incidentally Detected Gallbladder Polyps: Society of Radiologists in Ultrasound Consensus Conference Recommendations. Radiology. 2021;305(2):277-289. doi: 10.1148/[email or web address].[id number]. Epub 2021Mar 09. PMID: [id number]. Dictated by: Russel Erazo M.D. The radiology attending physician has personally reviewed this study, and had reviewed and/or edited this written report and agrees with it. Electronically signed by: Holly Dsouza M.D. Narrative 10/02/2024 2:22 PM BUILDING PERFORMANCE CONSULTANT EXAMINATION: LIMITED ABDOMINAL SONOGRAM (GALLBLADDER) HISTORY: Gallbladder polyp COMPARISON: CTA 09/25/2024, MRI 09/25/2024 FINDINGS: Gallbladder: The gallbladder is normal in size. There are no stones or sludge within the gallbladder. There is no gallbladder wall thickening. The gallbladder wall measures 2 mm. There is no pericholecystic fluid. There is a pedunculated rbdv-yb-pht-wall, solid, isoechoic polyp at the gallbladder fundus that measures 4 x 4 mm. No convincing thickening of the gallbladder wall. Procedure Note Holly Dsouza MD - 10/02/2024 EXAMINATION: LIMITED ABDOMINAL SONOGRAM (GALLBLADDER) HISTORY: Gallbladder polyp COMPARISON: CTA 09/25/2024, MRI 09/25/2024 FINDINGS: Gallbladder: The gallbladder is normal in size. There are no stones or sludge within the gallbladder. There is no gallbladder wall thickening. The gallbladder wall measures 2 mm. There is no pericholecystic fluid. There is a pedunculated mnqg-bq-xqf-wall, solid, isoechoic polyp at the gallbladder fundus that measures 4 x 4 mm. No convincing thickening of the gallbladder wall. IMPRESSION: 1. 4 mm, xuph-sf-nkj-wall gallbladder polyp without definitive gallbladder wall thickening, which requires no further follow-up per SRU guidelines. Malika A, Elizabeth C, Chula JL, Lou DT, Baltazar AJ, Trevor Y, Abhijit DB, Teddy MT, Goldie N, Ethan H, Gauri WG, Marc MR, Maday SK, Maricel ME, Keshav X, Velazquez Y, Chanel WD. Management of Incidentally Detected Gallbladder Polyps: Society of Radiologists in Ultrasound Consensus Conference Recommendations. Radiology. 2021;305(2):277-289. doi: [id number]/[email or web address].[id number]. Epub 2021Mar 09. PMID: [id number]. Dictated by: Russel Erazo M.D. The radiology attending physician has personally reviewed this study, and had reviewed and/or edited this written report and agrees with it. Electronically signed by: Holly Dsouza M.D. us Sarah Adkins MD IMG US PROCEDURES Final Re sult * eGFR (09/26/2024 9:44 AM BUILDING PERFORMANCE CONSULTANT) eGFR >90 >=60 mL/min/1. 73 m2 Comment: Interpretive Data Reference Interval Normal >/= 90 mL/min/1.73m2 Mildly decreased* 60 - 89 mL/min/1.73m2 Mildly to moderately decreased 45 - 59 mL/min/1.73m2 Moderately to severely decreased 30 - 44 mL/min/1.73m2 Severely decreased 15 - 29 mL/min/1.73m2 Kidney Failure < 15 mL/min/1.73m2 *Relative to young adult level Estimated glomerular filtration rate is determined by the 2020 CKD-EPI equation recommended by the National Kidney Foundation (A Unifying Approach to GFR Estimation: Recommendations of the NKF-ASK Task Force on Reassessing the Inclusion of Race in Diagnosing Kidney Disease, JASN 2020). The CKD-EPI equation should not be used for patients with unstable renal function and has not been validated in children and those over 70. Current interpretive data was last reviewed 2021. Blood 09/26/2024 9:44 AM BUILDING PERFORMANCE CONSULTANT 09/26/2024 9:49 AM BUILDING PERFORMANCE CONSULTANT us Sarah Adkins MD LAB BLOOD ORDERABLES Final Result [facility] Department [place] [address] * (ABNORMAL) Differential, auto (09/26/2024 9:44 AM BUILDING PERFORMANCE CONSULTANT) Neutrophil abs 7.4(H) 1.5 - 6.5 K/cumm Comment:Testing performed by : [facility], [address] [place] [phone] Lymphocyte abs 2.9 0.8 - 3.3 K/cumm MARYCARMEN JORDAN Comment:Testing performed by : [facility], [address] [place] [phone] Monocyte abs 1.0(H) 0.2 - 0.8 K/cumm [facility] Comment:Testing performed by : [facility], [address] [place] [phone] Eosinophil abs 0.1 0.0 - 0.5 K/cumm [facility] Comment:Testing performed by : [facility], [address] [place] [phone] Basophil abs 0.1 0.0 - 0.1 K/cumm [facility] Comment:Testing performed by : [facility], [address] [place] [phone] Neutrophil pct 64.1 % [facility] Comment: Interpretive Data Percent cell count reference ranges are not reported, since discordance with absolute values may lead to misinterpretation of CBC data. Current Interpretive Data was last revised on 2017. Testing performed by: [facility], [address] [place] [phone] Lymphocyte pct 25.2 % [facility] Comment: Interpretive Data Percent cell count reference ranges are not reported, since discordance with absolute values may lead to misinterpretation of CBC data. Current Interpretive Data was last revised on 2017. Testing performed by: [facility], [address] [place] [phone] Monocyte pct 8.7 % [facility] Comment: Interpretive Data Percent cell count reference ranges are not reported, since discordance with absolute values may lead to misinterpretation of CBC data. Current Interpretive Data was last revised on 2017. Testing performed by: [facility], [address] [place] [phone] Eosinophil pct 0.9 % [facility] Comment: Interpretive Data Percent cell count reference ranges are not reported, since discordance with absolute values may lead to misinterpretation of CBC data. Current Interpretive Data was last revised on 2017. Testing performed by: [facility], [address] [place] [phone] Basophil pct 1.1 % [facility] Comment: Interpretive Data Percent cell count reference ranges are not reported, since discordance with absolute values may lead to misinterpretation of CBC data. Current Interpretive Data was last revised on 2017. Testing performed by: [facility], [address] [place] [address] Blood 09/26/2024 9:44 AM BUILDING PERFORMANCE CONSULTANT 09/26/2024 9:46 AM BUILDING PERFORMANCE CONSULTANT Sarah Adkins MD LAB BLOOD ORDERABLES Final Result [facility] Department [place] [address] * (ABNORMAL) CBC with auto differential (09/26/2024 9:44 AM BUILDING PERFORMANCE CONSULTANT) WBC 11.5(H) 3.8 - 9.9 K/cumm Comment:Testing performed by : [facility], [address] [place] [address] Hgb 12.8 11.9 - 15.5 g/dL CERNICOL BJ Comment:Testing performed by : [facility], [address] [place] [address] Hct 39.5 35.6 - 45.5 % CERNICOL [facility] Comment:Testing performed by : [facility], [address] [place] [address] Plt 294 150 - 400 K/cumm CERNICOL [facility]J Comment:Testing performed by : [facility], [address] [place] [address] MPV 7.0 6.8 - 10.4 fL CERNICOL [facility]J Comment:Testing performed by : [facility], [address] [place] [address] RBC 4.51 3.90 - 5.20 M/cumm CERNICOL [facility] Comment:Testing performed by : [facility], [address] [place] [address] MCV 87.6 81.3 - 96.4 fL CERNICOL [facility] Comment:Testing performed by : [facility], [address] [place], [place] [phone] MCH 28.4 27.1 - 33.3 pg [facility]ERNICOL [facility] Comment:Testing performed by : [facility], [address] [place], [place] [phone] MCHC 32.4 32.3 - 35.7 g/dL MARYCARMEN [facility] Comment:Testing performed by : [facility], [address] [place], [place] [phone] RDW CV 14.6 11.1 - 14.9 % MARYCARMEN [facility] Comment:Testing performed by : [facility], [address] [place], [place] [phone] NRBC abs 0.00 0.00 - 0.01 K/cumm MARYCARMEN [facility] Comment:Testing performed by : [facility], [address] [place], [place] [phone] Blood 09/26/2024 9:44 AM BUILDING PERFORMANCE CONSULTANT 09/26/2024 9:46 AM BUILDING PERFORMANCE CONSULTANT Sarah Adkins MD LAB BLOOD ORDERABLES Final Result Performing Organization Address City/[facility]/ZIP Co de Phone Number [facility] [place] [place] [address] * aPTT (09/26/2024 9:44 AM BUILDING PERFORMANCE CONSULTANT) aPTT 31 28 - 38 sec Comment: Interpretive Data Heparin therapeutic range: 66.0 - 100.0 seconds. Range based on correlation with therapeutic heparin activity range of 0.3 - 0.7 Units/mL. Current interpretive data was last revised on 2023. Blood 09/26/2024 9:44 AM BUILDING PERFORMANCE CONSULTANT 09/26/2024 10:12 AM BUILDING PERFORMANCE CONSULTANT Sarah Adkins MD LAB BLOOD ORDERABLES Final Result [facility] [place] [address] * Erythrocyte sedimentation rate (09/26/2024 9:44 AM BUILDING PERFORMANCE CONSULTANT) Erythrocyte sedimentation rate 14 1 - 30 mm/hr Blood 09/26/2024 9:44 AM BUILDING PERFORMANCE CONSULTANT 09/26/2024 10:39 AM BUILDING PERFORMANCE CONSULTANT Sarah Adkins MD LAB BLOOD ORDERABLES Final Result Performing Organization Address [facility] de Phone Number [facility] [place] [address] * Protime-INR (09/26/2024 9:44 AM BUILDING PERFORMANCE CONSULTANT) Pathologist [facility] PT 10.0 9.7 - 13.0 sec INR 0.93 0.90 - 1.20 [facility] Comment: Interpretive data Oral anticoagulant therapeutic ranges: Venous thromboembolism prophylaxis or treatment: 2.0-3.0 CARDIOLOGY Standard range: 2.0-3.0 High-intensity range: 2.5-3.5 Refer to indication-specific guidelines for appropriate target ranges for prosthetic heart valve replacement. Current interpretive data was last revised on 2019. Blood 09/26/2024 9:44 AM BUILDING PERFORMANCE CONSULTANT 09/26/2024 10:12 AM BUILDING PERFORMANCE CONSULTANT Sarah Adkins MD LAB BLOOD ORDERABLES Final Result Performing Organization Address [facility] de Phone Number [facility] [place] [address] * CRP (acute phase) (09/26/2024 9:44 AM BUILDING PERFORMANCE CONSULTANT) Pathologist [facility] CRP 2.4 <=10.0 mg/L Blood 09/26/2024 9:44 AM BUILDING PERFORMANCE CONSULTANT 09/26/2024 10:12 AM BUILDING PERFORMANCE CONSULTANT Sarah Adkins MD LAB BLOOD ORDERABLES Final Result Performing Organization Address [facility] de Phone Number [facility] Department [place] [address] * CEA (09/26/2024 9:44 AM BUILDING PERFORMANCE CONSULTANT) Pathologist [facility] CEA 5.0 <=5.0 ng/mL Comment: Interpretive Data: Reference Range: Non-Smokers: 0.0 5.0 ng/mL Smokers: 0.0 6.5 ng/mL The Prakash CEA assay procedure was used. Results from different manufacturers or methods may not be comparable. Serial testing should be performed using the same method. Current interpretive data was last revised 2022. Blood 09/26/2024 9:44 AM BUILDING PERFORMANCE CONSULTANT 09/26/2024 10:12 AM BUILDING PERFORMANCE CONSULTANT Sarah Adkins MD LAB BLOOD ORDERABLES Final Result [facility] [place] [address] * (ABNORMAL) Comprehensive metabolic panel (09/26/2024 9:44 AM BUILDING PERFORMANCE CONSULTANT) [facility] Sodium 134(L) 135 - 145 mmol/L Potassium, pl 3.4 3.3 - 4.9 mmol/L [facility] Chloride 96(L) 97 - 110 mmol/L [facility] CO2 30 22 - 32 mmol/L [facility] Anion gap 8 2 - 15 mmol/L [facility] BUN 16 6 - 25 mg/dL [facility] Creatinine 0.65 0.60 - 1.10 mg/dL [facility] Glucose 86 70 - 199 mg/dL [facility] Comment: Interpretive Data Fasting glucose >/= 126 mg/dl is diagnostic for diabetes. Fasting is defined as no caloric intake for at least 8 hours. Fasting glucose between 100 mg/dl to 125 mg/dl is diagnostic of prediabetes. In a patient with classic symptoms of hyperglycemia or hyperglycemic crisis, a random glucose >/= 200 mg/dl is diagnostic for diabetes. In the absence of unequivocal hyperglycemia, results should be confirmed by repeat testing. The classification and Diagnosis of Diabetes Diabetes Care 202; 46: S19-S40. Current interpretive data was last revised 2022. Calcium 9.5 8.5 - 10.3 mg/dL [facility] Bilirubin, total 0.7 0.1 - 1.2 mg/dL [facility] Protein, pl 7.4 6.5 - 8.5 g/dL [facility] Albumin 4.1 3.5 - 5.0 g/dL [facility] Alk phos 92 40 - 130 Units/L [facility] ALT 15 7 - 45 Units/L [facility] AST 22 10 - 45 Units/L [facility] Blood 09/26/2024 9:44 AM BUILDING PERFORMANCE CONSULTANT 09/26/2024 9:49 AM BUILDING PERFORMANCE CONSULTANT us Sarah Adkins MD LAB BLOOD ORDERABLES Final Result [facility] Department [place] [address] * CTA Abdomen Pelvis (09/25/2024 7:46 PM BUILDING PERFORMANCE CONSULTANT) Anatomical Region Laterality Modality Body N/A Computed Tomogra phy 09/25/2024 8:10 PM BUILDING PERFORMANCE CONSULTANT Impressions 09/25/2024 9:35 PM BUILDING PERFORMANCE CONSULTANT 1. No acute abnormality in the abdomen or pelvis. 2. The previously seen area of soft tissue thickening near the aortic bifurcation has improved with now only minimal thickening present. No definitive evidence of aortitis on this CT examination. Recommend correlation with same-day MR. Dictated by: Pau Chin MD The radiology attending physician has personally reviewed this study, and had reviewed and/or edited this written report and agrees with it. 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 TECHNIQUE: Transaxial computed tomographic images of the abdomen and pelvis were obtained with and without intravenous contrast according to the standard angiography protocol after the uneventful administration of 75 mL Opti-Ray 350 intravenous contrast. COMPARISON: CT 08/23/2024 FINDINGS: Mild bibasilar atelectasis. No pleural effusion. Normal cardiac size without pericardial effusion. No suspicious hepatic lesion. No biliary ductal dilatation. Normal appearance of the gallbladder, spleen and adrenal glands. Unchanged 1.0 cm pancreatic tail cystic lesion may represent a side branch papillary mucinous neoplasm. Right renal cortical scarring. Kidneys enhance symmetrically without hydronephrosis or nephrolithiasis. Normal urinary bladder. Fibroid uterus. Left ovarian cyst. Normal appearance of the stomach and duodenum. Normal caliber small bowel and colon without evidence of bowel obstruction. No pneumoperitoneum or free fluid. Small fat-containing umbilical hernia. No suspicious enlarging abdominal or pelvic lymphadenopathy. Normal caliber abdominal aorta and branches with mild atherosclerosis. The previously seen area of soft tissue thickening near the aortic bifurcation is no longer present. No definite evidence of aortitis on this CT examination. Grade 1 anterolisthesis of L4 on L5. Severe degenerative changes of the lower lumbar spine. No suspicious osseous lesion. Procedure Note Travis Claros MD PhD - 09/25/2024 EXAMINATION: Computed tomography of the abdomen and pelvis with and without intravenous contrast HISTORY: 79-year-old woman with concern for infrarenal aortitis. TECHNIQUE: Transaxial computed tomographic images of the abdomen and pelvis were obtained with and without intravenous contrast according to the standard angiography protocol after the uneventful administration of 75 mL Opti-Ray 350 intravenous contrast. COMPARISON: CT 08/23/2024 FINDINGS: Mild bibasilar atelectasis. No pleural effusion. Normal cardiac size without pericardial effusion. No suspicious hepatic lesion. No biliary ductal dilatation. Normal appearance of the gallbladder, spleen and adrenal glands. Unchanged 1.0 cm pancreatic tail cystic lesion may represent a side branch papillary mucinous neoplasm. Right renal cortical scarring. Kidneys enhance symmetrically without hydronephrosis or nephrolithiasis. Normal urinary bladder. Fibroid uterus. Left ovarian cyst. Normal appearance of the stomach and duodenum. Normal caliber small bowel and colon without evidence of bowel obstruction. No pneumoperitoneum or free fluid. Small fat-containing umbilical hernia. No suspicious enlarging abdominal or pelvic lymphadenopathy. Normal caliber abdominal aorta and branches with mild atherosclerosis. The previously seen area of soft tissue thickening near the aortic bifurcation is no longer present. No definite evidence of aortitis on this CT examination. Grade 1 anterolisthesis of L4 on L5. Severe degenerative changes of the lower lumbar spine. No suspicious osseous lesion. IMPRESSION: 1. No acute abnormality in the abdomen or pelvis. 2. The previously seen area of soft tissue thickening near the aortic bifurcation has improved with now only minimal thickening present. No definitive evidence of aortitis on this CT examination. Recommend correlation with same-day MR. Dictated by: Pau Chin MD The radiology attending physician has personally reviewed this study, and had reviewed and/or edited this written report and agrees with it. Electronically signed by: Travis Claros M.D., Ph.D us Sarah Adkins MD IMG CT PROCEDURES Final Re sult * MRI Abdomen Pancreas W WO Contrast (09/25/2024 7:15 PM BUILDING PERFORMANCE CONSULTANT) Anatomical Region Laterality Modality Body N/A Magnetic Resonan ce 09/26/2024 9:40 AM BUILDING PERFORMANCE CONSULTANT Impressions 09/26/2024 12:19 PM BUILDING PERFORMANCE CONSULTANT 1. 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 No worrisome or high-risk features. Recommend 12 month follow-up. 2. 3 mm enhancing gallbladder polyp in the fundus. Recommend further evaluation with ultrasound for risk stratification. Dictated by: Torsten Tian MD The radiology attending physician has personally reviewed this study, and had reviewed and/or edited this written report and agrees with it. Electronically signed by: Edmond Bowman M.D. Narrative 09/26/2024 12:19 PM BUILDING PERFORMANCE CONSULTANT EXAMINATION: MAGNETIC RESONANCE IMAGING OF THE ABDOMEN WITH AND WITHOUT CONTRAST HISTORY: Pancreatic cystic lesion TECHNIQUE: Magnetic resonance imaging of the abdomen was performed prior to and following the uneventful administration of intravenous Gadolinium contrast. Protocol: Liver Contrast: gadoterate 15 mL COMPARISON: Same day CT and CT 08/23/2024 FINDINGS: Liver: No significant fat deposition - Bile ducts: Normal - Focal liver lesions: No suspicious observations - Vasculature: Portal and hepatic veins are patent Gallbladder: 3mm enhancing gallbladder polyp. Pancreas: 2.8 cm cystic lesion in the pancreatic tail with communication with the main pancreatic duct representing branch type intraductal papillary mucinous neoplasm Spleen: Normal Adrenals: Normal Kidneys: Multiple renal cysts Other Findings: No lymphadenopathy or ascites in the imaged abdomen. The reference periaortic thickening on CT is incompletely evaluated on MRI. Anterolisthesis of L4 on L5. Procedure Note Edmond Bowman MD - 09/26/2024 EXAMINATION: MAGNETIC RESONANCE IMAGING OF THE ABDOMEN WITH AND WITHOUT CONTRAST HISTORY: Pancreatic cystic lesion TECHNIQUE: Magnetic resonance imaging of the abdomen was performed prior to and following the uneventful administration of intravenous Gadolinium contrast. Protocol: Liver Contrast: gadoterate 15 mL COMPARISON: Same day CT and CT 08/23/2024 FINDINGS: Liver: No significant fat deposition - Bile ducts: Normal - Focal liver lesions: No suspicious observations - Vasculature: Portal and hepatic veins are patent Gallbladder: 3mm enhancing gallbladder polyp. Pancreas: 2.8 cm cystic lesion in the pancreatic tail with communication with the main pancreatic duct representing branch type intraductal papillary mucinous neoplasm Spleen: Normal Adrenals: Normal Kidneys: Multiple renal cysts Other Findings: No lymphadenopathy or ascites in the imaged abdomen. The reference periaortic thickening on CT is incompletely evaluated on MRI. Anterolisthesis of L4 on L5. IMPRESSION: 1. 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 No worrisome or high-risk features. Recommend 12 month follow-up. 2. 3 mm enhancing gallbladder polyp in the fundus. Recommend further evaluation with ultrasound for risk stratification. Dictated by: Torsten Tian MD The radiology attending physician has personally reviewed this study, and had reviewed and/or edited this written report and agrees with it. Electronically signed by: Edmond Bowman M.D. Sarah Adkins MD [facility] MRI PROCEDURES Final R esult * Surgical pathology (09/20/2024 9:03 AM BUILDING PERFORMANCE CONSULTANT) Tissue (Polyp(s), colon/colorectal, esophageal, gastric) 09/20/2024 9:03 AM BUILDING PERFORMANCE CONSULTANT Narrative PATHOLOGY [facility] - 09/21/2024 10:40 AM BUILDING PERFORMANCE CONSULTANT EPIC results best viewed via link to PDF [facility] [place] [address] Note to Patients: This report may contain a detailed description of human tissue sent by a health care provider to the laboratory for pathologic evaluation. The content of this report is essential for diagnosis and may provide important critical findings. This information may be unfamiliar to patients to review without a medical professional present. It is advised that the patient review this report in the presence of a health care provider who can answer questions and explain the details. SURGICAL PATHOLOGY REPORT FINAL Patient Name: EMMANUELLE CRUZ Gender: F : 1945 (Age: 79) Address: [address] [place], [place] [id number] [facility] #: [id number] Taken:09/20/2024 Received:09/20/2024 Reported: 09/21/2024 Patient Type: [facility] EP SAME Client [facility] Service: Surgery Location: Physician(s): MD Pete Burch M.D. Diagnosis: Large bowel, rectum, distal, polyp, biopsy - Tubular adenoma av/09/21/2024 08:25 By this signature, I attest that the above diagnosis is based upon my personal examination of the slides(and/or other material indicated in the diagnosis). Anabelle Hughes MD Report Electronically Reviewed and Signed Out By Anabelle Hughes MD 09/21/2024 10:40:44 Azucena Avendano M.D. History: The patient is a 79-year-old woman with rectal cancer. Operative procedure: Sigmoid injection submucosal and endo add on sigmoid biopsy. Specimen(s) Received: A: Distal rectal polyp Gross Description: Received in formalin, labeled with the patient s identifiers and distal rectal polyp is a single irregular tissue fragment(s) (measuring 0.4 x 0.4 x 0.1 cm. Stained with eosin). Labeled A1. Jar 0. cnewho/09/20/2024 10:38 PA(s): EVELYN Mishra By this signature, I attest that the above diagnosis is based upon my personal examination of the slides(and/or other material). Addenda/Procedures Microscopic slide review and interpretation for this case was performed at [facility], Department of Surgical Pathology, [address] [facility], [id number], [place] [address] [place] # [id number] The performance characteristics of some immunohistochemical stains, fluorescence in-situ hybridization tests and immunophenotyping by flow cytometry cited in this report (if any) were determined by the Surgical Pathology and Flow Cytometry Departments at [facility] as part of an ongoing air quality instrument specialist program and in compliance with federally mandated regulations drawn from the Clinical Laboratory Improvement Act of 1988 (CLIA '88). Some of these tests rely on the use of analyte specific reagents and are subject to specific labeling requirements by the US Food and Drug Administration. Such diagnostic tests may only be performed in a facility that is certified by the Department of Health and Human Services as a high complexity laboratory under CLIA '88. The FDA has determined that such clearance or approval is not necessary. This test is used for clinical purposes. It should not be regarded as investigational or for research. Nevertheless, federal rules concerning the medical use of analyte specific reagents require that the following disclaimer be attached to the report: This test was developed and its performance characteristics determined by the Surgical Pathology and Flow Cytometry Departments of [facility]. It has not been cleared or approved by the U. S. Food and Drug Administration. IMAGES AND SCANNED DOCUMENTS, IF INCLUDED, ONLY VIEWABLE IN PDF VERSION OF REPORT Jak Bobo MD LAB PATHOLOGY ORDERABLE S Final Result PATHOLOGY [facility] [phone] * Flexible Sigmoidoscopy (09/20/2024 8:35 AM BUILDING PERFORMANCE CONSULTANT) Anatomical Region Laterality Modality Other Narrative Procedure Note Jak Bobo MD - 09/20/2024 8:35 AM CST ENDOSCOPY LAB Patient Name: Emmanuelle Cruz Procedure Date: 09/20/2024 8:35 AM Date of : 1945 Admit Type: Outpatient Age: 79 Gender: Female Attending MD: Jak Bobo M.D. Room: [facility] ENDOSCOPY ROOM 02 Note Status: Finalized Procedure: Flexible Sigmoidoscopy Indications: Follow-up of ulcerative colitis and endoscopic resection of malignant rectal polyp Providers: Jak Bobo M.D. Referring MD: Sarah Adkins M.D. Medicines: Monitored Anesthesia Care Complications: No immediate complications. Estimated Blood Loss: Estimated blood loss: none. Procedure: Pre-Anesthesia Assessment: - Immediately prior to administration ofmedications, the patient was re-assessed for adequacy to receive sedatives. The benefits, risks, and alternatives to theprocedure and sedation were discussed and informed consentwas obtained. The [id number] was introducedthrough the anus and advanced to the the sigmoid colon. The flexible sigmoidoscopy was accomplished without difficulty. The patient tolerated the procedurewell. The quality of the bowel preparation was good. Findings: The perianal and digital rectal examinations were normal. A scar was found in the proximal rectum (10cm from AV in posterior position). The scar tissue was healthy in appearance. No evidence of residual abnormality. Area was tattooed with an injection of Spot (carbon black). A 1 mm polyp was found in the distal rectum. The polyp was sessile.The polyp was removed with a jumbo cold forceps. Resection and retrieval were complete. The exam was otherwise without abnormality. Impression: - Scar in the proximal posterior rectum (site of malignant polyp that was previously removed in piecemeal). Tattooed. - One 1 mm polyp in the distal rectum, removed witha jumbo cold forceps. Resected and retrieved. - The examination was otherwise normal. No inflammation noted in rectum/sigmoid. Recommendation: - Await pathology results. - Consider TEM of rectal scar to ensure negative margin on malignant polyp. Patient understands the risk of metachronous cancer and lymph nodemetastasis Jak Bobo MD Jak Bobo M.D. 09/20/2024 9:12:25 AM Number of Addenda: 0 Note Initiated On: 09/20/2024 8:35 AM us Jak Bobo MD ENDOSCOPY PROCEDURES Fi nal Result * MRI Pelvis Rectal Cancer W WO Contrast (08/30/2024 8:58 PM BUILDING PERFORMANCE CONSULTANT) Anatomical Region Laterality Modality Body N/A Magnetic Resonan ce 08/31/2024 9:03 AM BUILDING PERFORMANCE CONSULTANT Impressions 08/31/2024 12:44 PM BUILDING PERFORMANCE CONSULTANT No definite MR evidence of rectal mass or pelvic metastatic disease. Dictated by: Evelio Chen MD The radiology attending physician has personally reviewed this study, and had reviewed and/or edited this written report and agrees with it. Electronically signed by: Alba Berger M.D. Narrative 08/31/2024 12:44 PM BUILDING PERFORMANCE CONSULTANT EXAMINATION: MAGNETIC RESONANCE IMAGING OF THE PELVIS WITH AND WITHOUT CONTRAST HISTORY: Rectal cancer. Staging evaluation. TECHNIQUE: MRI of the pelvis was performed prior to and following intravenous administration of gadolinium contrast. Glucagon 1 mg intravenous injection was performed prior to imaging. Protocol: Rectal Cancer Staging Pelvis Contrast: gadoterate 14 mL COMPARISON: CT 08/23/2024 FINDINGS: Rectal Cancer Staging Information: Tumor: No definite rectal mass is noted. Nodes: No pelvic lymphadenopathy. Bladder: Normal Reproductive organs: Fibroid uterus. 4.0 cm simple ovarian cyst is likely benign (O RADS 2/3). No right ovarian mass. Other Findings: No free pelvic fluid. Pelvic vasculature is patent. No suspicious osseous lesion. Procedure Note Alba Berger MD - 08/31/2024 EXAMINATION: MAGNETIC RESONANCE IMAGING OF THE PELVIS WITH AND WITHOUT CONTRAST HISTORY: Rectal cancer. Staging evaluation. TECHNIQUE: MRI of the pelvis was performed prior to and following intravenous administration of gadolinium contrast. Glucagon 1 mg intravenous injection was performed prior to imaging. Protocol: Rectal Cancer Staging Pelvis Contrast: gadoterate 14 mL COMPARISON: CT 08/23/2024 FINDINGS: Rectal Cancer Staging Information: Tumor: No definite rectal mass is noted. Nodes: No pelvic lymphadenopathy. Bladder: Normal Reproductive organs: Fibroid uterus. 4.0 cm simple ovarian cyst is likely benign (O RADS 2/3). No right ovarian mass. Other Findings: No free pelvic fluid. Pelvic vasculature is patent. No suspicious osseous lesion. IMPRESSION: No definite MR evidence of rectal mass or pelvic metastatic disease. Dictated by: Evelio Chen MD The radiology attending physician has personally reviewed this study, and had reviewed and/or edited this written report and agrees with it. Electronically signed by: Alba Berger M.D. Sarah Adkins MD IMG MRI PROCEDURES Final R esult * POC Influenza A/B, COVID-19 antigen (08/23/2024 6:02 PM BUILDING PERFORMANCE CONSULTANT) Influenza A Ag, POC Negative Negative [facility] Influenza B Ag, POC Negative Negative [facility] COVID-19 Ag POC Presumptive Negative Presumptive Negative, Invalid [facility] Nasal 08/23/2024 6:02 PM BUILDING PERFORMANCE CONSULTANT More Arechiga NP POINT OF CARE TEST ORDERABL ES Final Result [facility] [address] [place] [address] * CT Chest Abdomen Pelvis W Contrast (08/23/2024 1:53 PM BUILDING PERFORMANCE CONSULTANT) Anatomical Region Laterality Modality Body N/A Computed Tomogra phy 08/31/2024 2:28 PM BUILDING PERFORMANCE CONSULTANT Narrative 08/31/2024 2:51 PM BUILDING PERFORMANCE CONSULTANT EXAM DESCRIPTION: CT CHEST ABDOMEN PELVIS W CONTRAST REASON FOR STUDY: Colon cancer, staging, Colon cancer Staging colon cancer diagnosed in July 2024 TECHNIQUE: CT scan of the chest, abdomen, and pelvis performed with intravenous and without oral contrast using helical scanning technique with dynamic intravenous contrast injection. Reconstructed coronal and sagittal MPR images reviewed. All images stored on PACS. Automated exposure control was used as a dose optimization technique for this examination. CONTRAST TYPE/DOSE: 100mL of IOVERSOL 350 MG IODINE/ML INTRAVENOUS SYRINGE injected via intravenous COMPARISON: Chest CT dated 02/21/2023 FINDINGS: CHEST LUNGS: Mild bibasilar ground-glass, likely atelectasis. There is minimal subpleural consolidation within the medial right apex which is unchanged and likely represents scarring (14). PLEURA: No effusion. No pneumothorax. MEDIASTINUM/MONAE: Nodular appearance of the left thyroid measuring 2.5 cm. Follow-up thyroid ultrasound is recommended for further evaluation. No mediastinal or hilar lymphadenopathy. HEART: The heart is normal in size. VASCULATURE CHEST: No thoracic aortic aneurysm or dissection. AXILLA: Subcentimeter axillary lymph nodes are noted CHEST WALL: No masses. No subcutaneous air. HARDWARE/LINES/TUBES: None. MUSCULOSKELETAL CHEST: No significant abnormality. ABDOMEN/PELVIS LIVER: The liver is normal in size. No definite liver lesion is seen. GALLBLADDER: The gallbladder is partially distended. No gross CT evidence of acute cholecystitis. BILE DUCTS: No gross biliary ductal dilatation. SPLEEN: Spleen is normal in size. PANCREAS: The pancreas is normal in size. A 2.5 by 1.4 cm unilocular cystic lesion is seen along the anterior pancreatic tail which is not seen on the prior chest CT (50). No peripancreatic stranding or main ductal dilatation. ADRENALS: Normal. KIDNEYS/URINARY TRACT: There is moderate atrophy of the right kidney with anterior parenchymal thinning. The left kidney is normal in appearance. No hydronephrosis. There is subcentimeter hypoattenuating lesions within the kidneys which are too small to characterize. Urinary bladder is partially distended. GI: The colon is nondilated. It is uncertain location where the patient's primary malignancy is with no definitive colonic mass seen on CT. The cecum is located within the right upper quadrant. The appendix is not definitively seen. The stomach is partially distended with indeterminate thickening, likely due to under distension. The small bowel is nondilated without evidence of a small-bowel obstruction. PERITONEUM: No free air. No ascites. No omental caking or peritoneal nodularity. Prominent mesenteric lymph nodes are noted. These are likely reactive. For reference is a 1.0 x 0.6 cm lymph node (68). RETROPERITONEUM: No retroperitoneal or inguinal lymphadenopathy is seen. REPRODUCTIVE: Calcifications within the uterus as evidence for fibroids. A 4 by 3.3 cm left ovarian cyst is seen. An adjacent cyst is seen measuring 1.4 cm (106). Likely posterior fibroid measuring 2.5 x 2.0 cm VASCULATURE: The abdominal aorta is ectatic measuring up to 2.5 cm. There is irregular thickening and stranding of the infrarenal aorta (71). Indeterminate heterogeneity of the portal splenic confluence. It is uncertain whether this represents mixing artifact or nonocclusive thrombus. MUSCULOSKELETAL ABDOMEN PELVIS: Grade 1 anterolisthesis L4-5. Moderate L3-5 degenerative disc disease OTHER: No significant abnormality. IMPRESSION: 1. No gross CT evidence of metastatic disease within the chest, abdomen or pelvis. 2. A 2.5 cm cystic lesion within the pancreatic tail, new compared to a prior chest CT on 02/21/2023. A follow-up pancreatic protocol MRI is recommended for further evaluation. 3. Evidence of left ovarian cysts measuring up to 4 cm. Likely 2.5 cm posterior uterine fibroid. A follow-up pelvic ultrasound is recommended for further evaluation. 4. Irregular thickening and stranding of the infrarenal aorta. This could represent aortitis. Recommend correlation with inflammatory markers. Follow-up CT angiogram is recommended for further evaluation. 5. Indeterminate heterogeneity of the portal splenic confluence. It is uncertain whether this represents mixing artifact or nonocclusive thrombus. Recommend close attention on follow-up. 6. Additional findings as above. THIS IS AN ELECTRONICALLY VERIFIED FINAL REPORT 08/31/2024 2:51 PM - Electronically signed by Bill COLE T: Report ID: [id number] Reading Location: [place] [address] Procedure Note Bill Rodríguez MD - 12/27/2024 EXAM DESCRIPTION: CT CHEST ABDOMEN PELVIS W CONTRAST REASON FOR STUDY: Colon cancer, staging, Colon cancer Staging colon cancer diagnosed in July 2024 TECHNIQUE: CT scan of the chest, abdomen, and pelvis performed with intravenous and without oral contrast using helical scanning techniquewith dynamic intravenous contrast injection. Reconstructed coronal and sagittalMPR images reviewed. All images stored on PACS. Automated exposure control was used as a dose optimization technique for this examination. CONTRAST TYPE/DOSE: 100mL of IOVERSOL 350 MG IODINE/ML INTRAVENOUS SYRINGE injected via intravenous COMPARISON: Chest CT dated 02/21/2023 FINDINGS: CHEST LUNGS: Mild bibasilar ground-glass, likely atelectasis. There isminimal subpleural consolidation within the medial right apex which is unchangedand likely represents scarring (14). PLEURA: No effusion. No pneumothorax. MEDIASTINUM/MONAE: Nodular appearance of the left thyroid measuring 2.5cm. Follow-up thyroid ultrasound is recommended for further evaluation. No mediastinal or hilar lymphadenopathy. HEART: The heart is normal in size. VASCULATURE CHEST: No thoracic aortic aneurysm or dissection. AXILLA: Subcentimeter axillary lymph nodes are noted CHEST WALL: No masses. No subcutaneous air. HARDWARE/LINES/TUBES: None. MUSCULOSKELETAL CHEST: No significant abnormality. ABDOMEN/PELVIS LIVER: The liver is normal in size. No definite liver lesion is seen. GALLBLADDER: The gallbladder is partially distended. No gross CTevidence of acute cholecystitis. BILE DUCTS: No gross biliary ductal dilatation. SPLEEN: Spleen is normal in size. PANCREAS: The pancreas is normal in size. A 2.5 by 1.4 cm unilocularcystic lesion is seen along the anterior pancreatic tail which is not seen on the prior chest CT (50). No peripancreatic stranding or main ductaldilatation. ADRENALS: Normal. KIDNEYS/URINARY TRACT: There is moderate atrophy of the right kidneywith anterior parenchymal thinning. The left kidney is normal in appearance.No hydronephrosis. There is subcentimeter hypoattenuating lesions within the kidneys which are too small to characterize. Urinary bladder is partially distended. GI: The colon is nondilated. It is uncertain location where thepatient's primary malignancy is with no definitive colonic mass seen on CT. Thececum is located within the right upper quadrant. The appendix is notdefinitively seen. The stomach is partially distended with indeterminate thickening, likely due to under distension. The small bowel is nondilated without evidence of a small-bowel obstruction. PERITONEUM: No free air. No ascites. No omental caking or peritoneal nodularity. Prominent mesenteric lymph nodes are noted. These are likely reactive. For reference is a 1.0 x 0.6 cm lymph node (68). RETROPERITONEUM: No retroperitoneal or inguinal lymphadenopathy is seen. REPRODUCTIVE: Calcifications within the uterus as evidence for fibroids.A 4 by 3.3 cm left ovarian cyst is seen. An adjacent cyst is seen measuring1.4 cm (106). Likely posterior fibroid measuring 2.5 x 2.0 cm VASCULATURE: The abdominal aorta is ectatic measuring up to 2.5 cm. Thereis irregular thickening and stranding of the infrarenal aorta (71). Indeterminate heterogeneity of the portal splenic confluence. It isuncertain whether this represents mixing artifact or nonocclusive thrombus. MUSCULOSKELETAL ABDOMEN PELVIS: Grade 1 anterolisthesis L4-5. ModerateL3-5 degenerative disc disease OTHER: No significant abnormality. IMPRESSION: 1. No gross CT evidence of metastatic disease within the chest, abdomenor pelvis. 2. A 2.5 cm cystic lesion within the pancreatic tail, new compared to a prior chest CT on 02/21/2023. A follow-up pancreatic protocol MRI is recommended for further evaluation. 3. Evidence of left ovarian cysts measuring up to 4 cm. Likely 2.5 cm posterior uterine fibroid. A follow-up pelvic ultrasound is recommendedfor further evaluation. 4. Irregular thickening and stranding of the infrarenal aorta. Thiscould represent aortitis. Recommend correlation with inflammatory markers. Follow-up CT angiogram is recommended for further evaluation. 5. Indeterminate heterogeneity of the portal splenic confluence. It is uncertain whether this represents mixing artifact or nonocclusivethrombus. Recommend close attention on follow-up. 6. Additional findings as above. THIS IS AN ELECTRONICALLY VERIFIED FINAL REPORT 08/31/2024 2:51 PM - Electronically signed by Bill Rodríguez M.D. AG T: Report ID: [id number] Reading Location: [place] [address] Mark Raines MD IMG CT PROCEDURES Final R esult * OCT, Optic Nerve - OU - Both Eyes (08/23/2024 12:26 PM BUILDING PERFORMANCE CONSULTANT) Pathologist [facility] RNFL OS 86 micrometers CONTINUUM RNFL OD 92 micrometers CONTINUUM Anatomical Region Laterality Modality Head [employer] Coheren[facility] e Tomography Narrative 08/23/2024 12:26 PM BUILDING PERFORMANCE CONSULTANT Right Eye Reliability was good. Temporal thickness was normal. Superior thickness was showing abnormal thinning. Nasal thickness was normal. Inferior thickness was normal. Average RNFL thickness 92 micrometers. Left Eye Reliability was good. Temporal thickness was showing abnormal thinning. Superior thickness was normal. Nasal thickness was normal. Inferior thickness was normal. Average RNFL thickness 86 micrometers. Notes Superior thinning OD Temporal thinning left eye (OS) Demetra Baumann OD OPHTH TOMOGRAPHY Final Result * Creatinine (08/13/2024 10:20 AM BUILDING PERFORMANCE CONSULTANT) Pathologist [facility] Creatinine, Serum 0.63 0.57 - 1.00 mg/dL [facility] - 01 eGFR 91 >59 mL/min/1.73 [facility] - 01 08/13/2024 10:2 0 AM BUILDING PERFORMANCE CONSULTANT 08/13/2024 Narrative [facility] - 08/14/2024 7:37 AM BUILDING PERFORMANCE CONSULTANT Performed at: - [address] [id number] Percher: Ranjit Lucero PhD, Phone: [phone] Mark Raines MD LAB BLOOD ORDERABLES Renetta l Result [facility] - 01 * CBC with auto differential (08/13/2024 8:10 AM BUILDING PERFORMANCE CONSULTANT) Pathologist [facility] WBC 7.0 3.4 - 10.8 x10E3/uL [facility] - 01 RBC 4.41 3.77 - 5.28 x10E6/uL [facility] - 01 Hgb 12.8 11.1 - 15.9 g/dL [facility] - 01 Hct 38.5 34.0 - 46.6 % [facility] - 01 MCV 87 79 - 97 fL [facility] - 01 MCH 29.0 26.6 - 33.0 pg [facility] - 01 MCHC 33.2 31.5 - 35.7 g/dL [facility] - 01 Rdw 13.1 11.7 - 15.4 % [facility] - 01 Platelets 354 150 - 450 x10E3/uL [facility] - 01 Neutrophils pct 55 Not Estab. % [facility] - 01 Lymphs pct 31 Not Estab. % [facility] - 01 Monocytes pct 9 Not Estab. % [facility] - 01 Eosinophils pct 4 Not Estab. % [facility] - 01 Basophil pct 1 Not Estab. % [facility] - 01 Neutrophil abs 3.8 1.4 - 7.0 x10E3/uL [facility] - 01 Lymphs (Absolute) 2.2 0.7 - 3.1 x10E3/uL [facility] - 01 Monocyte abs 0.6 0.1 - 0.9 x10E3/uL [facility] - 01 Eosinophils, abs 0.3 0.0 - 0.4 x10E3/uL [facility] - 01 Basophils, abs 0.1 0.0 - 0.2 x10E3/uL [facility] - 01 Immature Granulocytes 0 Not Estab. % [facility] - 01 Immature Grans (Abs) 0.0 0.0 - 0.1 x10E3/uL [facility] - 01 Blood 08/13/2024 8:10 AM BUILDING PERFORMANCE CONSULTANT 08/13/2024 Narrative [facility] - 08/14/2024 7:09 AM BUILDING PERFORMANCE CONSULTANT Performed at: - [facility] [id number] Percher: Ranjit Lucero PhD, Phone: [phone] us Pete Molina MD LAB BLOOD ORDERABLES Final Result [facility] - 01 * TSH (08/13/2024 8:10 AM BUILDING PERFORMANCE CONSULTANT) Pathologist [facility] TSH 1.220 0.450 - 4.500 uIU/mL [facility] - 01 Blood 08/13/2024 8:10 AM BUILDING PERFORMANCE CONSULTANT 08/13/2024 Narrative [facility] - 08/14/2024 8:11 AM BUILDING PERFORMANCE CONSULTANT Performed at: [facility] [id number] Percher: Ranjit Lucero PhD, Phone: [phone] Pete Molina MD LAB BLOOD ORDERABLES Final Result Performing Organization Address [facility] Phone Number [facility] - * Lipid panel (08/13/2024 8:10 AM BUILDING PERFORMANCE CONSULTANT) Cholesterol 169 100 - 199 mg/dL [facility] - 01 Triglycerides 52 0 - 149 mg/dL [facility] - 01 HDL Cholesterol 73 >39 mg/dL [facility] - 01 VLDL 11 5 - 40 mg/dL [facility] - 01 LDL, calculated 85 0 - 99 mg/dL [facility] - 01 Blood 08/13/2024 8:10 AM BUILDING PERFORMANCE CONSULTANT 08/13/2024 Narrative [facility] - 08/14/2024 7:09 AM BUILDING PERFORMANCE CONSULTANT Performed at: [address] [id number] Percher: Ranjit Lucero PhD, Phone: [phone] Result [facility] Pete Molina MD LAB BLOOD ORDERABLES Final Result Performing Organization Address [facility] Phone Number [facility] - 01 * (ABNORMAL) Comprehensive metabolic panel (08/13/2024 8:10 AM BUILDING PERFORMANCE CONSULTANT) Glucose 103(H) 70 - 99 mg/dL [facility] - 01 BUN 17 8 - 27 mg/dL [facility] - 01 Creatinine, Serum 0.63 0.57 - 1.00 mg/dL [facility] - 01 eGFR 91 >59 mL/min/1.7 3 [facility] - 01 BUN/creat ratio 27 12 - 28 [facility] - 01 Sodium 134 134 - 144 mmol/L [facility] - 01 Potassium, sr 3.8 3.5 - 5.2 mmol/L [facility] - 01 Chloride 94(L) 96 - 106 mmol/L [facility] - 01 CO2 26 20 - 29 mmol/L [facility] - 01 Calcium 9.5 8.7 - 10.3 mg/dL [facility] - 01 Protein, sr 7.0 6.0 - 8.5 g/dL [facility] - 01 Albumin 4.2 3.8 - 4.8 g/dL [facility] - 01 Globulin, Total 2.8 1.5 - 4.5 g/dL [facility] - 01 Bilirubin, Total 0.5 0.0 - 1.2 mg/dL [facility] - 01 Alk phos 108 44 - 121 IU/L [facility] - 01 AST 16 0 - 40 IU/L [facility] - 01 ALT 8 0 - 32 IU/L [facility] - 01 Blood 08/13/2024 8:10 AM BUILDING PERFORMANCE CONSULTANT 08/13/2024 Narrative [facility] - 08/14/2024 7:09 AM BUILDING PERFORMANCE CONSULTANT Performed at: [address] [place] [id number] Percher: Ranjit Lucero PhD, Phone: [phone] us Pete Molina MD LAB BLOOD ORDERABLES Final Result Performing Organization Address City/State/[facility] Phone Number [facility] - 01 * Surgical pathology (07/31/2024 10:45 AM BUILDING PERFORMANCE CONSULTANT) Tissue (Polyp(s), colon/colorectal, esophageal, gastric) 07/31/2024 10:45 AM BUILDING PERFORMANCE CONSULTANT Tissue (Colon, Biopsy) 07/31/2024 10:54 AM BUILDING PERFORMANCE CONSULTANT Tissue (Colon, Biopsy) 07/31/2024 10:54 AM BUILDING PERFORMANCE CONSULTANT Tissue (Colon, Biopsy) 07/31/2024 11:08 AM BUILDING PERFORMANCE CONSULTANT Tissue (Polyp(s), colon/colorectal, esophageal, gastric) 07/31/2024 11:09 AM BUILDING PERFORMANCE CONSULTANT Narrative PATHOLOGY [facility] - 08/06/2024 5:04 PM BUILDING PERFORMANCE CONSULTANT [facility] Department of Pathology [address] [place] [address] Note to Patients: This report may contain a detailed description of human tissue sent by a health care provider to the laboratory for pathologic evaluation. The content of this report is essential for diagnosis and may provide important critical findings. This information may be unfamiliar to patients to review without a medical professional present. It is advised that the patient review this report in the presence of a health care provider who can answer questions and explain the details. Final Report with Addendum Patient Name: EMMANUELLE CRUZ : 1945 (Age: 79) Gender: F Address: [address] [place] [address] Hospital #: [id number] Service: Gastro Location: Patient Type: [facility] OUTPATIENT Taken: 07/31/2024 Received: 07/31/2024 Accessioned: 07/31/2024 Reported: 08/06/2024 Physician(s): MD Pete Parikh M.D. Diagnosis: A. Large intestine, transverse colon, polyp , biopsy: - Sporadic tubular adenoma versus polypoid low grade colitis-associated dysplasia B. Large intestine, right colon, biopsy: - Normal colonic mucosa - No active inflammation or features of chronicity - Negative for dysplasia, granulomata, and viral cytopathic effect C. Large intestine, left colon, biopsy: - Normal colonic mucosa - No active inflammation or features of chronicity - Negative for dysplasia, granulomata, and viral cytopathic effect D. Large intestine, rectum, biopsy: - Colonic mucosa with mild glandular disarray (mild inactive proctitis) - No active inflammation - Negative for dysplasia, granulomata, and viral cytopathic effect E. 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 Raines via [email or web address] secure messaging on 08/06/2024. 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 Jared Durbin M.D., Ph.D. Report Electronically Reviewed and Signed Out By Jared Durbin M.D., Ph.D. 08/06/2024 17:04:35 Addenda: Addendum - 1 MH Addendum Diagnosis E. Large intestine, rectum, polyp , biopsy: - Intact nuclear expression of mismatch repair proteins (MLH1, PMS2, MSH2, and MSH6) in tumor cells by immunostains Addendum Comment The results of MMR IHC are as follows: PMS2: retained hMLH1: retained hMSH2: retained hMSH6: retained Immunohistochemical (IHC) stains for the DNA mismatch repair (MMR) enzymes MLH1, MSH2, MSH6, and PMS2 have been performed. These show retained nuclear expression in the tumor cells equivalent to that seen in lymphocytes and smooth muscle in the adjacent normal tissue, a staining pattern that is usually not associated with a defect in mismatch repair function. Normal expression of all four proteins suggests this particular cancer is unlikely to be due to a hereditary germline mutation in the genes known to be associated with Crawford Syndrome. Clinical correlation is required. IHC is a reliable measure of DNA mismatch repair status but is neither completely sensitive nor specific and has limitations. Specimen(s) Received: A: Transverse colon polyp B: Right colon biopsies C: Left colon biopsies D: Rectal biopsies E: Rectal polyp Microscopic Description: Microscopic examination substantiates the above cited diagnosis. Additional levels were examined for part E. Immunohistochemical stains (single antibody procedures with appropriate controls) were performed on block E1 to further characterize the tumor cells. p53 immunostain shows a mutant null pattern in the adenoma and invasive adenocarcinoma. Select slides from part E were shown in intradepartmental consultation to Dr. Frederick Maldonado and Dr. Anabelle Baxter of the section of Liver/GI pathology, who agree with the diagnosis of invasive adenocarcinoma. Microscopic examination substantiates the above cited diagnosis. Additional levels were examined for part E. Immunohistochemical stains (single antibody procedures with appropriate controls) were performed on block E1 to further characterize the tumor cells. p53 immunostain shows a mutant null pattern in the adenoma and invasive adenocarcinoma. Select slides from part E were shown in intradepartmental consultation to Dr. Frederick Maldonado and Dr. Anabelle Baxter of the section of Liver/GI pathology, who agree with the diagnosis of invasive adenocarcinoma. Clinical History: The patient is a 79-year-old woman with ulcerative colitis with complication. Operative procedure: Colonoscopy with biopsy. Gross Description Received in five formalin jars labeled with the patient's identifiers. A. Labeled transverse colon polyp and consists of a 1.4 x 0.4 x 0.2 cm connor, elongated tissue fragment. Trisected and entirely submitted. Labeled A1. Jar 0. B. Labeled right colon biopsies rule out dysplasia and UC and consists of eight connor tissue fragments ranging from 0.1-0.4 cm. Entirely submitted. Labeled B1. Jar 0. C. Labeled left colon biopsies rule out dysplasia and UC and consists of six connor tissue fragments ranging from 0.2-0.3 cm. Entirely submitted. Labeled C1. Jar 0. D. Labeled rectal biopsies rule out dysplasia and UC and consists of six connor-pink tissue fragments ranging from 0.2-0.3 cm. Entirely submitted. Labeled D1. Jar 0. E. Labeled rectal polyp and consists of six connor-pink, disrupted tissue fragments admixed with debris, ranging from 0.3-0.6 cm. Entirely submitted. Labeled E1. Jar 0. [facility]/07/31/2024 16:02 LON Del Cid, [facility] Microscopic slide review and interpretation for this case was performed at [facility] Department of Surgical Pathology, [address] [facility], [place] [id number] [address] CLIA # [id number] The MLH-1 test was performed at [facility] Department of Surgical Pathology, [address] [place] [address]. The test MSH-2 was performed at [facility] Department of Surgical Pathology, [address] [place] [address]. The test MSH-6 was performed at [facility] Department of Surgical Pathology, [address] [place] [address]. The PMS-2 test was performed at [facility] Department of Surgical Pathology, [address] [place] [address]. Mark Raines MD LAB PATHOLOGY ORDERABLES Final Result PATHOLOGY [facility] * Colonoscopy (07/31/2024 10:41 AM BUILDING PERFORMANCE CONSULTANT) Anatomical Region Laterality Modality Other Narrative Procedure Note Mark Raines MD - 07/31/2024 10:41 AM CST [facility] GI ENDOSCOPY Patient Name: Emmanuelle Cruz Procedure Date: 07/31/2024 10:41AM Date of : 1945 Admit Type: Outpatient Age: 79 Gender: Female Attending MD: Mark Raines MD Room: [facility] ENDOSCOPY ROOM 04 Note Status: Finalized Procedure: Colonoscopy Indications: Surveillance, h/o ulcerative colitis on oral 5ASA Referring MD: Providers: Mark Raines MD Medicines: See the Anesthesia note for documentation of the administered medications Complications: No immediate complications. Estimated Blood Loss: Estimated blood loss was minimal. Procedure: Pre-Anesthesia Assessment: - Prior to the procedure, a History and Physicalwas performed, and patient medications and allergieswere reviewed. The risks and benefits of the procedureand the sedation options and risks were discussed withthe patient. All questions were answered and informed consent was obtained. Patient identification and proposed procedure were verified. After reviewingthe risks and benefits, the patient was deemed in satisfactory condition to undergo the procedure.The anesthesia plan was to use monitored anesthesiacare (MAC). Immediately prior to administration of medications, the patient was re-assessed foradequacy to receive sedatives. The heart rate, respiratory rate, oxygen saturations, blood pressure, adequacyof pulmonary ventilation, and response to care were monitored throughout the procedure. The physical status of the patient was re-assessed after the procedure. The benefits, risks and alternatives of theprocedure and sedation were discussed and informed consentwas obtained. All questions were answered. Please referto the signed informed consent document in the medical record. The scope was passed under direct vision.The [id number]-[id number] colonoscope was introduced through theanus and advanced to the terminal ileum, with identification of the appendiceal orifice and IC valve. The colonoscopy was performed without difficulty. The patient tolerated the procedurewell. The quality of the bowel preparation was good.Scope insertion time was 10 minutes. Scope withdrawaltime was 23 minutes. Prep was administered in a splitdose. Findings: The perianal and digital rectal examinations were normal. The visualized terminal ileum appeared normal. A 7 mm polyp was found in the transverse colon. The polyp wassessile. The polyp was removed with a cold snare. Resection and retrieval were complete. A 10 mm polyp was found in the rectum. The polyp was sessile. Thepolyp was removed with a cold snare and cold forcep. Resection (piecemeal)and retrieval were complete. Colonic mucosa normal. Whole colon biopsied with a cold forceps for dysplasia, ulcerative colitis ( into right colon, leftcolon, and rectum jars). Small internal hemorrhoids. Impression: - The examined portion of the terminal ileum was normal. - One 7 mm polyp in the transverse colon, removedwith a cold snare. Resected and retrieved. - One 10 mm polyp in the rectum, removed with acold snare. Resected and retrieved. - Colonic mucosa normal. Biopsied. - Hemorrhoids. Recommendation: - Await pathology results. - Resume previous diet today. - Discharge patient to home. - Continue current medications. - Increase fiber. - Patient has a contact number available for emergencies. The signs and symptoms of potential delayed complications were discussed with thepatient. Return to normal activities tomorrow. Written discharge instructions were provided to thepatient. - I would be happy to see you in my GI clinic ifyou have further questions or concerns or if symptoms progress Mark Raines MD 07/31/2024 11:24:29 AM Number of Addenda: 0 Note Initiated On: 07/31/2024 10:41 AM Recognized by the [employer] for promoting quality in endoscopy Mark Raines MD ENDOSCOPY PROCEDURES Renetta l Result * ECG 12 lead (07/31/2024 10:02 AM BUILDING PERFORMANCE CONSULTANT) Ventricular Rate EKG/Min 59 BPM [facility] Atrial Rate 59 BPM [facility] LA-Interval (MSEC) 172 ms [facility] QRS-Interval (MSEC) 96 ms [facility] QT-Interval (MSEC) 460 ms [facility] QTc 455 ms [facility] P [place] 11 degrees [facility] R [place] 35 degrees [facility] T [place] 29 degrees [facility] Diagnosis Sinus bradycardia Otherwise normal ECG No previous ECGs available Confirmed by SULTAN OTT M.D. ([id number]) on 07/31/2024 4:32:58 PM [facility] 07/31/2024 10:0 2 AM BUILDING PERFORMANCE CONSULTANT 07/31/2024 4:32 PM BUILDING PERFORMANCE CONSULTANT Ke Purcell MD ECG ORDERABLES Final Result [facility] * HM MAMMOGRAPHY (05/21/2023) us Historical Provider HEALTH MAINTENANCE Final Result * Dexa Axial Skeleton Bone Density 1 or 2 Site (12/10/2021 11:19 AM CDT) Anatomical Region Laterality Modality Body N/A Other 12/10/2021 12:4 9 PM CDT Narrative 12/10/2021 12:50 PM CDT EXAM DESCRIPTION: DEXA AXIAL SKELETON BONE DENSITY 1 OR MORE SITES REASON FOR STUDY: 76 y/o year old F with given history of screening. 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 FINDINGS: AP LUMBAR SPINE L1-L4: Total BMD is 0.948 g/cm2 T-score is -0.9 LEFT HIP: Total BMD is 0.836 g/cm2 T-score is -0.9 Femoral neck BMD is 0.743 g/cm2 T-score is -1.0 IMPRESSION: Based on the left femoral neck bone mineral density (T-score -1.0) the patient has normal bone mass. REFERENCE: Bone mineral density: Normal (T-score above or = -1.0) Low bone mass (T-score between -1.0 and -2.5) replaces the previously used term osteopenia Osteoporosis (T-score = or below -2.5) Medical evaluation for secondary causes of low bone mineral density may be appropriate. FRAX is a World Health Organization validated fracture risk assessment tool that calculates a person's 10 year probability of a major osteoporosis related fracture and hip fracture. According to the National Osteoporosis Foundation guidelines, postmenopausal women and men age 50 or older with low bone mass and a 10 year probability of a major osteoporosis related fracture = or greater than 20% or a 10 year probability of a hip fracture = or greater than 3% should be considered for treatment. For further information, including treatment recommendations, please refer to the 2013 ISCD Official Positions (http://www.iscd.org) and the NOF's Clinician's Guide to Prevention and Treatment of Osteoporosis (http://www.nof.org/professionals/clinical-guidelines) THIS IS AN ELECTRONICALLY VERIFIED FINAL REPORT 12/10/2021 12:50 PM - Electronically signed by Americo Dugan M.D. MF: [email or web address] Report ID: [id number] Reading Location: [place] [address] Procedure Note Americo Dugan MD - 12/10/2021 EXAM DESCRIPTION: DEXA AXIAL SKELETON BONE DENSITY 1 OR MORE SITES REASON FOR STUDY: 76 y/o year old F with given history ofscreening. Public Transportation Inspector/Model: [employer]iro Discovery SL (S/N [id number]) CLINICAL INFORMATION: Current height: 64.5 inches Maximum height: 65 inches Weight: 172 pounds Risk factors: Adult fracture, parental hip fracture, postmenopausal COMPARISON: None available. FINDINGS: AP LUMBAR SPINE L1-L4: Total BMD is 0.948 g/cm2 T-score is -0.9 LEFT HIP: Total BMD is 0.836 g/cm2 T-score is -0.9 Femoral neck BMD is 0.743 g/cm2 T-score is -1.0 IMPRESSION: Based on the left femoral neck bone mineral density (T-score -1.0) the patient has normal bone mass. REFERENCE: Bone mineral density: Normal (T-score above or = -1.0) Low bone mass (T-score between -1.0 and -2.5) replaces thepreviously used term osteopenia Osteoporosis (T-score = or below -2.5) Medical evaluation for secondary causes of low bone mineral density may be appropriate. FRAX is a World Health Organization validated fracture risk assessmenttool that calculates a person's 10 year probability of a major osteoporosisrelated fracture and hip fracture. According to the National OsteoporosisFoundation guidelines, postmenopausal women and men age 50 or older with low bonemass and a 10 year probability of a major osteoporosis related fracture = or greater than 20% or a 10 year probability of a hip fracture = or greaterthan 3% should be considered for treatment. For further information, including treatment recommendations, please referto the 2013 ISCD Official Positions (http://www.iscd.org) and the NOF's Clinician's Guide to Prevention and Treatment of Osteoporosis (http://www.nof.org/professionals/clinical-guidelines) THIS IS AN ELECTRONICALLY VERIFIED FINAL REPORT 12/10/2021 12:50 PM - Electronically signed by Americo Dugan M.D. MF: [email or web address] Report ID: [id number] Reading Location: [place] [address] Pete Molina MD IMG DXA PROCEDURES Final Re sult * Hepatitis C antibody (11/30/2021 10:49 AM CDT) Hep C Ab <0.1 0.0 - 0.9 s/co ratio [facility] - 01 Comment: Negative: < 0.8 Indeterminate: 0.8 - 0.9 Positive: > 0.9 The CDC recommends that a positive HCV antibody result be followed up with a HCV Nucleic Acid Amplification test (300742). Blood specimen (specimen) 11/30/2021 10:49 AM CDT 11/30/2021 Narrative [facility] - 12/01/2021 8:12 AM CDT Performed at: - [address] [id number] Percher: Ranjit Luceor PhD, Phone: [phone] Pete Molina MD LAB MICROBIOLOGY - GENERAL ORDERABLES Final Result Performing Organization Address City/State/[facility] [place] de Phone Number [facility] - 01 from Last 3 Months or Most Recently Relevant to Health [place] [address] [place] [address] [place] [address] [employer] MED[employer]ARE Advance Directives For more information, please contact: [phone] * Full Code (Latest Code Status on File) Date Activated Date Inactivated Comments 09/20/2024 8:03 AM 09/20/2024 1:43 PM Care Teams Seafood Fisherman Relationship Specialty Start Date End Date Pete Molina MD [address] [place] [address] PCP - General Family Medicine 11/09/21 Sergio Eastman MD [address] [place] [address] Consulting Physician Neurology 11/09/21 Daylin Wheatley MD [address] [place] [address] Surgeon Ophthalmology 11/09/21 Tereso Crocker MD [address] [place] [address] Referring Physician Family Medicine 11/09/21 Travis Choudhary MD [address] [facility] [address] [place] [address] Referring Physician Gastroenterology 11/09/21 Gavino Dempsey MD [address] [place] [address] Referring Physician Rheumatology 11/10/22 Sarah Adkins MD [address] [place] [address] Consulting Physician Medical Oncology 08/10/24 Jak Bobo MD [address] [facility] [id number] [place], [place] [id number] Surgeon Colon and Rectal Surgery 09/19/24
--- OUTSIDE RECORDS SUMMARY | 2024-10-23 14:03 | XMS_ITS | Clinical Summary ---
Author Organization [facility] Address [address] [place] [address] Care Team Providers Care Tableau Report Developer Name Role Phone Pete Molina MD Primary Care Provider Sergio Eastman MD Unavailable [phone] Daylin Wheatley MD Unavailable [phone] Tereso Crocker MD Unavailable [phone] Travis Choudhary MD Unavailable [phone] Gavino Dempsey MD Unavailable Sarah Adkins MD Unavailable Jak Bobo MD Unavailable Allergies Active Allergy Reactions Criticality Noted Date [...] or shortness of breath 6.73 each 4 Active chlorthalidone (HYGROTON) 25 mg tabletIndications :CKD [...] (three) times a day 270 capsule 1 Active Additional Information Patient taking differently:300 mg oral2 times daily, Indications: Neuropathic Pain, Informant: Self, Reported on 10/22/2024 LevoxyL 88 mcg tabletIndications :Hypothyroidism, unspecified type TAKE 1 TABLET EARLY MORNINGBEFORE BREAKFAST 90 tablet 1 Active Additional Information Patient taking differently: 88 [...] 8 oz of clear liquid. 4 tablet 025 Active neomycin (MYCIFRADIN) 500 mg tablet The [...] 10/22/2024 Assessment & Plan (10/22/2024 3:03 PM LETTERPRESS PRINTING MACHINIST): Cyst of the left ovary seen on [...] 08/23/20 Assessment & Plan (08/23/2024 12:24 PM LETTERPRESS PRINTING MACHINIST): Uses flonase daily Borderline intraocular pressure (IOP) Ou Slight thin CCT OD, slightly thick left eye (OS) Normal RNFL both eyes (OU) Fu 6 months Boateng visual field (HVF) and intraocular pressure (IOP) check Dermatochalasis of both upper eyelids 08/23/2024 Assessment & Plan (08/23/2024 12:25 PM LETTERPRESS PRINTING MACHINIST): Pt requests consult for poss blepharoplasty. Refer [...] 15mg daily. 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 - will contineu [...] 03/2022 Assessment & Plan (11/11/2021 12:33 PM LETTERPRESS PRINTING MACHINIST): A initial Medicare Annual Wellness Visit has been performed today. Emmanuelle Griffin Darinel is not up to date on screening [...] change. 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 Occasionally uses during the day. Add hot compresses. Pseudophakia of both eyes 06/05/2019 Overview (10/14/2020): Phaco/ intraocular lens (IOL) both eyes (OU)- Negro 06/05/19- YAG cap right eye (OD)- LMT 08/14/19- YAG cap left eye (OS)- LMT Assessment & Plan (08/23/2024 12:26 PM LETTERPRESS PRINTING MACHINIST): 06/05/19- YAG cap right eye (OD)- LMT 08/14/19- YAG cap left eye (OS)- LMT Well healed after YAG cap both eyes (OU). Implants in good position. Vision stable. Assessment & Plan (10/14/2020 11:33 AM LETTERPRESS PRINTING MACHINIST): From Americo Tom MD Initially happy but has gotten worse with PCO changes 06/05/19- YAG cap right eye (OD)- LMT 08/14/19- YAG cap left eye (OS)- LMT Well healed after YAG cap both eyes (OU). Implants in good position. Vision stable. Explained OTC readers are typical after regular cataract extraction (CE) both eyes (OU) with aim plano. Assessment & Plan (10/12/2019 10:53 AM LETTERPRESS PRINTING MACHINIST): Well healed s/p yag cap OU. Return [...] bedtime Assessment & Plan (11/07/2020 1:46 PM LETTERPRESS PRINTING MACHINIST): I would agree she reports symptoms consistent [...] 06/05/2019 10/14/2020 Overview (06/05/2019): Americo tom- 2016- AUJUHI Assessment & Plan (10/14/2020 10:30 AM LETTERPRESS PRINTING MACHINIST): Pt happy after YAG right eye (OD). [...] office. Assessment & Plan (08/16/2019 5:47 PM LETTERPRESS PRINTING MACHINIST): Pt happy after YAG right eye (OD). [...] decided to proceed. All questions were answered. Encounters Date Type Department Care Team Description 10/22/2024 2:30 PM LETTERPRESS PRINTING MACHINIST Office Visit [facility] Obstetrics and Gynecology [address] [place] [address] 7th Floor [address] [place] [address] Pau Angel MD Left ovarian cyst; Uterine leiomyoma, unspecified location; Adenocarcinoma of rectum (HCC); Cyst of ovary, unspecified laterality 10/22/2024 Telephone [facility] Surgery [address] [place] [address] Office Building [address] [place] [address] Jelly Castro RMA 10/18/2024 Telephone [facility] Surgery [address] [place] [address] Medical Office Building [address] [place] [phone] Jelly Dunn RN 10/16/2024 Telephone [facility] Ophthalmology [address] [place] [address] 6th [place] [phone] William Clarke MD 10/11/[address] [facility] Gastroenterology at [address] [place] [address] Mark Raines MD Ulcerative colitis without complications, unspecified location (HCC) 10/10/[address] [facility] Gastroenterology at [address] [place] [address] Mark Raines MD 10/02/2024 9:38 AM LETTERPRESS PRINTING MACHINIST - 10/02/2024 11:59 PM LETTERPRESS PRINTING MACHINIST Hospital Encounter [facility] - Radiology [address] [facility] Floor 8 [place] [address] Adenocarcinoma of rectum (HCC); Malignant neoplasm of colon, unspecified part of colon (HCC); Polyp of gallbladder Discharge Disposition: Discharge to home or self care 09/27/2024 Telephone [facility] [address] [facility] Office Building 4, [address] [place] [address] Myranda Walls RN Follow-up 09/26/2024 10:30 AM LETTERPRESS PRINTING MACHINIST Office Visit [facility] Oncology [address] [place] [address] Floor 5 [place] [phone] Sarah Adkins MD Adenocarcinoma of rectum (HCC) (Primary Dx); Malignant neoplasm of colon, unspecified part of colon (HCC); Polyp of gallbladder; Cyst of ovary, unspecified laterality 09/26/2024 10:00 AM LETTERPRESS PRINTING MACHINIST Lab [facility] - Lab Collection [address] [place] [address] Floor 5 [place] [address] Adenocarcinoma of rectum (HCC); Malignant neoplasm of colon, unspecified part of colon (HCC) 09/26/2024 9:45 AM LETTERPRESS PRINTING MACHINIST Lab [facility] On[facility] Lab [address] [place] [address] 5 [place] [address] Adenocarcinoma of rectum (HCC); Malignant neoplasm of colon, unspecified part of colon (HCC) 09/25/2024 5:14 PM LETTERPRESS PRINTING MACHINIST - 09/25/2024 11:59 PM LETTERPRESS PRINTING MACHINIST Hospital Encounter [facility] [address] [place] [address] Aortitis (CMS/HCC) (HCC) Discharge Disposition: Discharge to home or self care 09/25/2024 5:13 PM LETTER[employer] PRINTING MACHINIST - 09/25/2024 11:59 PM LETTERPRESS PRINTING MACHINIST Hospital Encounter [facility] [address] [place] [address] Pancreatic cyst Discharge Disposition: Discharge to home or self care 09/20/2024 8:46 AM LETTERPRESS PRINTING MACHINIST Anesthesia Event [facility] [address] [place] [address] Spencer Milian MD 09/20/2024 8:45 AM LETTERPRESS PRINTING MACHINIST - 09/20/2024 9:15 AM LETTERPRESS PRINTING MACHINIST Surgery [facility] [address] [address] Jak Bobo MD SIGMOID INJECTION SUBMUCOSAL 09/20/2024 7:39 AM LETTERPRESS PRINTING MACHINIST - 09/20/2024 9:43 AM LETTERPRESS PRINTING MACHINIST Hospital Encounter [facility] [address] [address] Jak Bobo MD Rectal cancer (CMS/HCC) (HCC) Discharge Disposition: Discharge to home or self care 09/19/2024 9:00 AM LETTERPRESS PRINTING MACHINIST Office Visit [facility] [address] [place] [address] Medical Office Building [address] [place] [address] Jak Bobo MD Adenocarcinoma of rectum (HCC) 09/19/2024 Telephone [facility] On[facility] 5 [place] [address] Muriel Correa, LINDA 09/19/2024 Telephone [facility]etrics [facility] Gynecology [address] [place] [address] Jill Damon Scheduling Appointments 09/17/[address] [facility] Specialty Services [facility] [place] [address] Madison Wolff RN GI Preprocedure 09/14/[address] [facility] Gastroenterology at [address] [place] [phone] Mark Raines MD Pancreatic cyst (Primary Dx) 09/12/2024 Telephone [facility]necology [address] [place] [address] Jill Damon Scheduling Appointments 09/11/2024 Orders Only [facility] 5 [place] [address] Muriel Correa, LINDA Adenocarcinoma of rectum (HCC) (Primary Dx); Left ovarian cyst; Aortitis (CMS/HCC) (HCC); Uterine leiomyoma, unspecified location; Pancreatic cyst 09/10/2024 Telephone [facility] [address] [place] [address] 5 [place] [address] Sarah Adkins MD 08/30/2024 7:25 PM LETTERPRESS PRINTING MACHINIST - 08/30/2024 11:59 PM LETTERPRESS PRINTING MACHINIST Hospital Encounter [facility] [place] [address] Adenocarcinoma of rectum (HCC); Malignant neoplasm of colon, unspecified part of colon (HCC) Discharge Disposition: Discharge to home or self care 08/23/2024 5:45 PM LETTERPRESS PRINTING MACHINIST Office Visit [facility] at [address] [address] More Arechiga NP Acute non-recurrent maxillary sinusitis (Primary Dx); Nasal congestion; Antibiotic-induced yeast infection 08/23/2024 1:42 PM LETTERPRESS PRINTING MACHINIST - 08/23/2024 11:59 PM LETTERPRESS PRINTING MACHINIST Hospital [facility] [place] [address] [place] [address] Malignant neoplasm of colon, unspecified part of colon (HCC) Discharge Disposition: Discharge to home or self care 08/23/2024 11:30 AM LETTERPRESS PRINTING MACHINIST Office Visit [facility] [address] [facility] [address] [place] [address] Demetra Baumann, OD Glaucoma suspect of both eyes [H40.003] (Primary Dx); Dermatochalasis of both upper eyelids; Pseudophakia of both eyes 08/23/2024 Telephone [facility] Primary Care at [address] [address] Pete Molina MD Sinusitis 08/16/2024 Telephone [facility] Gastroenterology at [address] [place] [phone] Mark Raines MD 08/15/2024 1:00 PM LETTERPRESS PRINTING MACHINIST Office Visit [facility] [address] [facility] Floor 5 [place] [phone] Sarah Adkins MD Adenocarcinoma of rectum (HCC) (Primary Dx); Malignant neoplasm of colon, unspecified part of colon (HCC) 08/13/2024 Orders Only [facility] Gastroenterology at [address] [place] [phone] Mark Raines MD 08/10/2024 Orders Only [facility] Gastroenterology at [address] [place] [phone] Mark Raines MD Malignant neoplasm of colon, unspecified part of colon (HCC) (Primary Dx) 08/10/2024 Orders Only [facility] Gastroenterology at [address] [place] [address] Mark Raines MD Ulcerative colitis with complication, unspecified location (HCC) (Primary Dx); Malignant neoplasm of colon, unspecified part of colon (HCC) 07/31/2024 10:35 AM LETTERPRESS PRINTING MACHINIST Anesthesia Event [facility] [address] [place] [address] Ke Purcell MD 07/31/2024 10:30 AM LETTERPRESS PRINTING MACHINIST - 07/31/2024 11:00 AM LETTERPRESS PRINTING MACHINIST Surgery [facility] [address] [place] [address] Mark Raines MD COLON REMOVAL SNARE 07/31/2024 9:11 AM LETTERPRESS PRINTING MACHINIST - 07/31/2024 12:00 PM LETTERPRESS PRINTING MACHINIST Hospital Encounter [facility] [address] [place] [address] Mark Raines MD Ulcerative colitis with complication, unspecified location (HCC) Discharge Disposition: Discharge to home or self care from Last 3 Months Immunizations Immunization Administration Dates Next Due Influenza, [...] Pneumococcal Polysaccharide PPV23 06/12/2018,,06/05/2008 ZOSTER Recombinant 02/03/2021,,12/05/2020,09/30,09/07/2020,09/07/2020 Surgical History Surgery Date Site/Laterality Comments DENTAL SURGERY dental surgery CATARACT EXTRACTION 09/05/2015 - 09/04/2016 Bilateral INTRAOCULAR LENS INSERTION 09/05/2015 - 09/04/2016 Bilateral BLEPHAROPTOSIS REPAIR 09/05/2006 - 09/04/2007 2007 COLONOSCOPY 10/06/2023 - 11/03/2023 UPPER GASTROINTESTINAL ENDOSCOPY COLONOSCOPY 07/31/2024 MYOMECTOMY 09/05/2013 - 09/04/2014 Medical History Medical History Date Comments Hx Other Medical hypothyroidism; Comments: MPB 10/09/2014 - Restless legs syndrome Restless legs syndrome Hypertension pt denies being diagnosed this Cataract Dry eyes, bilateral Varicose veins of both lower extremities MVP (mitral valve prolapse) 1996 Ulcerative colitis (HCC) PMR (polymyalgia rheumatica) (CMS/HCC) (HCC) Thyroid disease Anxiety and depression Ovarian cyst Uterine fibroid Venous insufficiency Rectal cancer ([facility]/HCC) (HCC) Chronic kidney disease stage 1 Tremor, unspecified Family History * Patient is adopted Medical History Relation Name Comments No Known Problems Brother Ulcerative colitis Daughter Dementia Father Kidney failure Father biological fa ther Breast cancer Father's Sister No Known Problems Maternal Grandfather No Known Problems Maternal Grandmother Kidney failure Mother adopted her No Known Problems Sister 1 No Known Problems Sister 2 Relation Name Status Comments Brother Alive Daughter Father Father's Sister Maternal Grandfather Maternal Grandmother Mother Paternal Grandfather Paternal Grandmother Sister 1 Alive Sister 2 Alive Social History Tobacco Use Types Packs/Day Years [...] staff should administer the PHQ-9) 0 08/23/2024 [facility] - Occupational Stress [...] on file Legal Sex Female 1:22 AM LETTERPRESS PRINTING MACHINIST Gender Identity Not on file Sexual Orientation Not on file 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 Not on file Not on file Not on file Obstetrics History Para Term AB IAB SAB Ectopic Multiple Livin g Live Births 2 2 2 2 2 Date Outcome GA Total Labor Labor/2nd/3rd Weight Sex Type Anes PTL Radha A1 A5 Name Clin 1968 Term 3.799 kg (8 lb 6 oz) F Vaginal Living Complications:None 1970 Term 3.969 kg (8 lb 12 oz) F Vaginal Living Last Filed Vital Signs Vital Sign Reading Time Taken Comments Blood Pressure 155/82 10/22/2024 2:20 PM LETTERPRESS PRINTING MACHINIST Pulse 65 09/26/2024 9:58 AM LETTERPRESS PRINTING MACHINIST Temperature 36.3 C (97.3 F) 09/26/2024 9:58 AM LETTERPRESS PRINTING MACHINIST Respiratory Rate 20 09/26/2024 9:58 AM LETTERPRESS PRINTING MACHINIST Oxygen Saturation 98% 09/26/2024 9:58 AM LETTERPRESS PRINTING MACHINIST Inhaled Oxygen Concentration - - Weight 77.1 kg (170 lb) 10/22/2024 2:20 PM LETTERPRESS PRINTING MACHINIST Height 162.6 cm (5' 4 ) 10/22/2024 2:20 PM LETTERPRESS PRINTING MACHINIST Body Mass Index 29.18 10/22/2024 2:20 PM LETTERPRESS PRINTING MACHINIST Plan of Treatment Upcoming Encounters Date Type Department Care Team (Latest Contact Info) Description 11/09/2024 7:15 AM LETTERPRESS PRINTING MACHINIST Hospital Encounter [facility] Operating Room [address] [address] Jak Bobo MD [address] [facility] [phone] [place], [place] [phone] 11/09/2024 7:15 AM LETTERPRESS PRINTING MACHINIST - 11/09/2024 9:15 AM LETTERPRESS PRINTING MACHINIST Surgery [facility] Operating Room [address] [address] [address] Jak Bobo MD [address] [facility] [phone] [place] [address] ENDOSCOPIC TRANSANAL MICROSURGERY Scheduled Procedures Name Priority Associated Diagnoses Date/Ti vt ENDOSCOPIC TRANSANAL MICROSURGERY Rectal cancer (CMS/HCC) (HCC) 11/09/2024 7:15 AM LETTERPRESS PRINTING MACHINIST Health Maintenance Due Date Last Done Comments DTaP/Tdap/Td Vaccine (1 - Tdap) 1956 Hepatitis B Screening 1965 Well Visit 65+ 11/09/2022 11/09/2021 Covid-19 Vaccine (2023-2 5 season) 2024 06/22/2021, 06/22/2021, 11/08/2020, Additional history exists Influenza Vaccine (#1) 2024 3, 06/18/2021, 06/06/2021, Additional history exists Osteoporosis Screening-Bone Density Scan 11/02/2024 11/02/2022, 12/10/2021 Depression Screening 08/23/2025 08/23/2024, 05/24/2024, 02/09/2024, Additional history exists Colon Cancer Screening-FIT 09/20/202509/20, 07/31/2024, 10/27/2023 Colon Cancer Screening-FOBT 09/20/202509/05, 07/31/2024, 10/27/2023 Fall Risk Assessment 09/20/2025 09/20/2024, 08/23/2024, 05/24/2024, Additional history exists Colon Cancer Screening-DNA Stool 09/20/2027 09/20/2024, 07/31/2024, 10/27/2023 Colon Cancer Screening-CT Colonography 09/20/2029 09/20/2024, 07/31/2024, 10/27/2023 Colon Cancer Screening-Sigmoidoscopy 09/20/2029 09/20/2024, 07/31/2024, 10/27/2023 Colon Cancer Screening-Colonoscopy 07/31/2034 07/31/2024, 10/27/2023, 11/21/2018 Colorectal Cancer Screening 07/31/2034 Pneumococcal vaccine 65+ Completed 018, 06/29/2017, 06/28/2016, Additional history exists Zoster Vaccine Completed 02/03/2021, 040 10/2020, 12/05/2020, Additional history exists Hepatitis C Screening Completed 11/30/2021 Breast Cancer Screening-Mammogram Discontinued 023, 12/10/2021 Procedures Procedure Name Priority Date/Time Associated Diagnosis Comments US GALLBLADDER Schedule Routine, Read Routine (OP Routine) 10/02/2024 10:41 AM LETTERPRESS PRINTING MACHINIST Adenocarcinoma of rectum (HCC) Malignant neoplasm of colon, unspecified part of colon (HCC) Polyp of gallbladder EGFR STAT 09/26/2024 9:44 AM LETTERPRESS PRINTING MACHINIST Adenocarcinoma of rectum (HCC) Malignant neoplasm of colon, unspecified part of colon (HCC) DIFFERENTIAL AUTO Routine 09/26/2024 9:4 4 AM LETTERPRESS PRINTING MACHINIST Adenocarcinoma of rectum (HCC) Malignant neoplasm of colon, unspecified part of colon (HCC) APTT Routine 09/26/2024 9:44 AM LETTERPRESS PRINTING MACHINIST Adenocarcinoma of rectum (HCC) Malignant neoplasm of colon, unspecified part of colon (HCC) CBC WITH AUTO DIFFERENTIAL Routine 09/26/2024 9:44 AM LETTERPRESS PRINTING MACHINIST Adenocarcinoma of rectum (HCC) Malignant neoplasm of colon, unspecified part of colon (HCC) CEA Routine 09/26/2024 9:44 AM LETTERPRESS PRINTING MACHINIST Adenocarcinoma of rectum (HCC) Malignant neoplasm of colon, unspecified part of colon (HCC) COMPREHENSIVE METABOLIC PANEL STAT 09/26/2024 9:44 AM LETTERPRESS PRINTING MACHINIST Adenocarcinoma of rectum (HCC) Malignant neoplasm of colon, unspecified part of colon (HCC) PROTIME-INR Routine 09/26/2024 9:44 AM LETTERPRESS PRINTING MACHINIST Adenocarcinoma of rectum (HCC) Malignant neoplasm of colon, unspecified part of colon (HCC) ERYTHROCYTE SEDIMENTATION RATE Routine 09/26/2024 9:44 AM LETTERPRESS PRINTING MACHINIST Adenocarcinoma of rectum (HCC) CRP (ACUTE PHASE) Routine 09/26/2024 9:4 4 AM LETTERPRESS PRINTING MACHINIST Adenocarcinoma of rectum (HCC) CTA ABDOMEN PELVIS W WO CONTRAST Schedule Routine, Read Routine (OP Routine) 09/25/2024 7:46 PM LETTERPRESS PRINTING MACHINIST Aortitis (CMS/HCC) (HCC) MRI ABDOMEN PANCREAS W WO CONTRAST Schedule Routine, Read Routine (OP Routine) 09/25/2024 7:15 PM LETTERPRESS PRINTING MACHINIST Pancreatic cyst SURGICAL PATHOLOGY Routine 09/20/2024 9: 03 AM LETTERPRESS PRINTING MACHINIST Rectal cancer (CMS/HCC) (HCC) ENDO ADD ON SIGMOID BIOPSY 09/20/2024 8:44 AM LETTERPRESS PRINTING MACHINIST Rectal cancer (CMS/HCC) (HCC) SIGMOID INJECTION SUBMUCOSAL 09/20/2024 8:44 AM LETTERPRESS PRINTING MACHINIST Rectal cancer (CMS/HCC) (HCC) FLEXIBLE SIGMOIDOSCOPY 09/20/2024 8:35 AM LETTERPRESS PRINTING MACHINIST MRI PELVIS RECTAL CANCER W WO CONTRAST Schedule Routine, Read Routine (OP Routine) 08/30/2024 8:58 PM LETTERPRESS PRINTING MACHINIST Adenocarcinoma of rectum (HCC) Malignant neoplasm of colon, unspecified part of colon (HCC) POC INFLUENZA A/B, COVID-19 ANTIGEN Routine 08/23/2024 6:02 PM LETTER[employer] PRINTING MACHINIST Nasal congestion CT CHEST ABDOMEN PELVIS W CONTRAST Schedule Routine, Read Routine (OP Routine) 08/23/2024 1:53 PM LETTERPRESS PRINTING MACHINIST Malignant neoplasm of colon, unspecified part of colon (HCC) OCT, OPTIC NERVE - OU - BOTH EYES Routine 08/23/2024 12:26 PM LETTERPRESS PRINTING MACHINIST Glaucoma suspect of both eyes [H40.003] CREATININE Routine 08/13/2024 10:20 AM LETTERPRESS PRINTING MACHINIST TSH Routine 08/13/2024 8:10 AM LETTERPRESS PRINTING MACHINIST Acquired hypothyroidism LIPID PANEL Routine 08/13/2024 8:10 AM LETTERPRESS PRINTING MACHINIST Hypercholesterolemia COMPREHENSIVE METABOLIC PANEL Routine 08/13/2024 8:10 AM LETTER[employer] PRINTING MACHINIST Hypercholesterolemia CBC WITH AUTO DIFFERENTIAL Routine 08/13/2024 8:10 AM LETTERPRESS PRINTING MACHINIST Hypercholesterolemia SURGICAL PATHOLOGY Routine 07/31/2024 10:45 AM LETTERPRESS PRINTING MACHINIST Ulcerative colitis with complication, unspecified location (HCC) COLONOSCOPY 07/31/2024 10:41 AM LETTERPRESS PRINTING MACHINIST ENDO ADD ON COLON BIOPSY 07/31/2024 10:35 AM LETTER[employer] PRINTING MACHINIST Ulcerative colitis with complication, unspecified location (HCC) COLON REMOVAL SNARE 07/31/2024 10:35 AM LETTERPRESS PRINTING MACHINIST Ulcerative colitis with complication, unspecified location (HCC) ECG 12-LEAD STAT 07/31/2024 10:02 AM LETTERPRESS PRINTING MACHINIST HM MAMMOGRAPHY Routine 05/21/2023 DEXA AXIAL SKELETON [...] Results * US Gallbladder (10/02/2024 10:41 AM LETTERPRESS PRINTING MACHINIST) Anatomical Region Laterality Modality Abdomen N/A Ultrasound 10/02/2024 11:1 2 AM LETTER[employer] PRINTING MACHINIST Impressions 10/02/2024 2:22 PM LETTERPRESS PRINTING MACHINIST 1. 4 mm, gqnl-dp-uwy-wall gallbladder polyp without definitive gallbladder wall thickening, which requires no further follow-up per SRU guidelines. Malika A, Elizabeth C, Chula JL, Lou DT, Baltazar AJ, Trevor Y, Abhijit DB, Teddy MT, Goldie N, Ethan H, Gauri WG, Marc MR, Maday SK, Maricel ME, Keshav X, Marcus Y, Chanel WD. Management of Incidentally Detected Gallbladder Polyps: Society of Radiologists in Ultrasound Consensus Conference Recommendations. Radiology. 2021;305(2):277-289. doi: 10.1148/radiol.333377. Epub 2021Mar 09. PMID: [id number]. Dictated by: Russel Erazo M.D. The radiology attending physician has personally reviewed this study, and had reviewed and/or edited this written report and agrees with it. Electronically signed by: Holly Dsouza M.D. Narrative 10/02/2024 2:22 PM LETTERPRESS PRINTING MACHINIST EXAMINATION: LIMITED ABDOMINAL SONOGRAM (GALLBLADDER) HISTORY: Gallbladder polyp COMPARISON: CTA 09/25/2024, MRI 09/25/2024 FINDINGS: Gallbladder: The gallbladder is normal in size. There are no stones or sludge within the gallbladder. There is no gallbladder wall thickening. The gallbladder wall measures 2 mm. There is no pericholecystic fluid. There is a pedunculated qylz-tf-mvn-wall, solid, isoechoic polyp at the gallbladder fundus [...] no pericholecystic fluid. There is a pedunculated gpvq-np-afy-wall, solid, isoechoic polyp at the gallbladder fundus that measures 4 x 4 mm. No convincing thickening of the gallbladder wall. IMPRESSION: 1. 4 mm, tpmo-fr-fom-wall gallbladder polyp without definitive gallbladder wall thickening, which requires no further follow-up per SRU guidelines. Malika A, Elizabeth C, Chula JL, Lou DT, Baltazar AJ, Treovr Y, Abhijit DB, Teddy MT, Goldie N, Ethan H, Gauri WG, Marc MR, Maday SK, Maricel ME, Keshav X, Velazquez Y, Chanel WD. Management of Incidentally Detected Gallbladder Polyps: Society of Radiologists in Ultrasound Consensus Conference Recommendations. Radiology. 2021;305(2):277-289. doi: 10.1148/radiol.932101. Epub 2021Mar 09. PMID: [id number]. Dictated by: Russel Erazo M.D. The radiology attending physician has personally reviewed this study, and had reviewed and/or edited this written report and agrees with it. Electronically signed by: Holly Dsouza M.D. us Sarah Adkins MD IMG US PROCEDURES Final Re sult * eGFR (09/26/2024 9:44 AM LETTER[employer] PRINTING MACHINIST) eGFR >90 >=60 mL/min/1. 73 m2 Comment: [...] last reviewed 2021. Blood 09/26/2024 9:44 AM LETTER[employer] PRINTING MACHINIST 09/26/2024 9:49 AM LETTER[employer] PRINTING MACHINIST Sarah Adkins MD LAB BLOOD ORDERABLES Final Result [facility] Department of Laboratories [place] [id number] * (ABNORMAL) Differential, auto (09/26/2024 9:44 AM LETTER[employer] PRINTING MACHINIST) Neutrophil abs 7.4(H) 1.5 - 6.5 K/cumm Comment:Testing performed by : [facility], [address] [place] [phone] Lymphocyte abs 2.9 0.8 - 3.3 K/cumm MARYCARMEN [facility] Comment:Testing performed by : [facility], [address] [place] [phone] Monocyte abs 1.0(H) 0.2 - 0.8 K/cumm MARYCARMEN JORDAN Comment:Testing performed by : [facility], [address] [place] [phone] Eosinophil abs 0.1 0.0 - 0.5 K/cumm MARYCARMEN [facility] Comment:Testing performed by : [facility], [address] [place] [phone] Basophil abs 0.1 0.0 - 0.1 K/cumm CERNER BJ Comment:Testing performed by : [facility], [address] [place] [address] Neutrophil pct 64.1 % CERNER BJ Comment: Interpretive Data Percent cell count reference ranges are not reported, since discordance with absolute values may lead to misinterpretation of CBC data. Current Interpretive Data was last revised on 2017. Testing performed by: [facility], [address] [place], [place] [phone] Lymphocyte pct 25.2 % CERNER BJ Comment: Interpretive Data Percent cell count reference ranges are not reported, since discordance with absolute values may lead to misinterpretation of CBC data. Current Interpretive Data was last revised on 2017. Testing performed by: [facility], [address] [place] [address] Monocyte pct 8.7 % CERNER BJ Comment: Interpretive Data Percent cell count reference ranges are not reported, since discordance with absolute values may lead to misinterpretation of CBC data. Current Interpretive Data was last revised on 2017. Testing performed by: [facility], [address] [place], [place] [id number] Eosinophil pct 0.9 % CERNER BJ Comment: Interpretive Data Percent cell count reference ranges are not reported, since discordance with absolute values may lead to misinterpretation of CBC data. Current Interpretive Data was last revised on 2017. Testing performed by: [facility], [address] [place] [phone] Basophil pct 1.1 % CERNER BJ Comment: Interpretive Data Percent cell count reference ranges are not reported, since discordance with absolute values may lead to misinterpretation of CBC data. Current Interpretive Data was last revised on 2017. Testing performed by: [facility], [address] [place], [place] [id number] Blood 09/26/2024 9:44 AM LETTER[employer] PRINTING MACHINIST 09/26/2024 9:46 AM LETTER[employer] PRINTING MACHINIST us Sarah Adkins MD LAB BLOOD ORDERABLES Final Result [facility] Department [place] [address] * (ABNORMAL) CBC with auto differential (09/26/2024 9:44 AM LETTER[employer] PRINTING MACHINIST) WBC 11.5(H) 3.8 - 9.9 K/cumm Comment:Testing performed by : [facility], [address] [place] [address] Hgb 12.8 11.9 - 15.5 g/dL CERNICOL JORDAN Comment:Testing performed by : [facility], [address] [place] [address] Hct 39.5 35.6 - 45.5 % CERNICOL BJ Comment:Testing performed by : [facility], [address] [place] [address] Plt 294 150 - 400 K/cumm CERNICOL BJ Comment:Testing performed by : [facility], [address] [place] [address] MPV 7.0 6.8 - 10.4 fL CERNICOL BJ Comment:Testing performed by : [facility], [address] [place] [address] RBC 4.51 3.90 - 5.20 M/cumm CERNICOL BJ Comment:Testing performed by : [facility], [address] [place] [address] MCV 87.6 81.3 - 96.4 fL CERNICOL BJ Comment:Testing performed by : [facility], [address] [place] [address] MCH 28.4 27.1 - 33.3 pg CERNER BJ Comment:Testing performed by : [facility], [address] [place] [address] MCHC 32.4 32.3 - 35.7 g/dL CERNICOL BJ Comment:Testing performed by : [facility], [address] [place] [phone] RDW CV 14.6 11.1 - 14.9 % [facility] Comment:Testing performed by : [facility], [address] [place] [phone] NRBC abs 0.00 0.00 - 0.01 K/cumm [facility] Comment:Testing performed by : [facility], [address] [place] [phone] Blood 09/26/2024 9:44 AM LETTER[employer] PRINTING MACHINIST 09/26/2024 9:46 AM LETTER[employer] PRINTING MACHINIST Sarah Adkins MD LAB BLOOD ORDERABLES Final Result Performing Organization Address [facility] Co de Phone Number [facility] Department [place] [address] * aPTT (09/26/2024 9:44 AM LETTER[employer] PRINTING MACHINIST) aPTT 31 28 - 38 sec Comment: Interpretive Data Heparin therapeutic range: 66.0 - 100.0 seconds. Range based on correlation with therapeutic heparin activity range of 0.3 - 0.7 Units/mL. Current interpretive data was last revised on 2023. Blood 09/26/2024 9:44 AM LETTER[employer] PRINTING MACHINIST 09/26/2024 10:12 AM LETTER[employer] PRINTING MACHINIST Sarah Adkins MD LAB BLOOD ORDERABLES Final Result Performing Organization Address City/[facility] Co de Phone Number [facility] Department [place] [address] * Erythrocyte sedimentation rate (09/26/2024 9:44 AM LETTER[employer] PRINTING MACHINIST) Pathologist [facility] Erythrocyte sedimentation rate 14 1 - 30 mm/hr Blood 09/26/2024 9:44 AM LETTER[employer] PRINTING MACHINIST 09/26/2024 10:39 AM LETTER[employer] PRINTING MACHINIST Sarah Adkins MD LAB BLOOD ORDERABLES Final Result Performing Organization Address City/[facility] Co de Phone Number [facility] [place] [address] * Protime-INR (09/26/2024 9:44 AM LETTER[employer] PRINTING MACHINIST) Pathologist [facility] PT 10.0 9.7 - 13.0 sec INR 0.93 0.90 - 1.[address] [facility] Comment: Interpretive data Oral anticoagulant therapeutic ranges: Venous thromboembolism prophylaxis or treatment: 2.0-3.0 CARDIOLOGY Standard range: 2.0-3.0 High-intensity range: 2.5-3.5 Refer to indication-specific guidelines for appropriate target ranges for prosthetic heart valve replacement. Current interpretive data was last revised on 2019. Blood 09/26/2024 9:44 AM LETTER[employer] PRINTING MACHINIST 09/26/2024 10:12 AM LETTER[employer] PRINTING MACHINIST Sarah Adkins MD LAB BLOOD ORDERABLES Final Result Performing Organization Address [facility] de Phone Number [facility] [place] [employer] [address] * CRP (acute phase) (09/26/2024 9:44 AM LETTER[employer] PRINTING MACHINIST) [facility] CRP 2.4 <=10.0 mg/L Blood 09/26/2024 9:44 AM LETTER[employer] PRINTING MACHINIST 09/26/2024 10:12 AM LETTER[employer] PRINTING MACHINIST Sarah Adkins MD LAB BLOOD ORDERABLES Final Result Performing Organization Address [facility] [[email or web address]] de Phone Number [facility] [place] [employer] [place] [address] * CEA (09/26/2024 9:44 AM LETTER[employer] PRINTING MACHINIST) Pathologist [facility] CEA 5.0 <=5.0 ng/mL Comment: Interpretive Data: Reference Range: Non-Smokers: 0.0 5.0 ng/mL Smokers: 0.0 6.5 ng/mL The Prakash CEA assay procedure was used. Results from different manufacturers or methods may not be comparable. Serial testing should be performed using the same method. Current interpretive data was last revised 2022. Blood 09/26/2024 9:44 AM LETTER[employer] PRINTING MACHINIST 09/26/2024 10:12 AM LETTER[employer] PRINTING MACHINIST Sarah Adkins MD LAB BLOOD ORDERABLES Final Result [facility] Department [place] [address] * (ABNORMAL) Comprehensive metabolic panel (09/26/2024 9:44 AM LETTER[employer] PRINTING MACHINIST) Sodium 134(L) 135 - 145 mmol/L Potassium, pl 3.4 3.3 - 4.9 mmol/L [facility] Chloride 96(L) 97 - 110 mmol/L [facility] CO2 30 22 - 32 mmol/L [facility] Anion gap 8 2 - 15 mmol/L [facility] BUN 16 6 - 25 mg/dL [facility] Creatinine 0.65 0.60 - 1.10 mg/dL [facility] Glucose 86 70 - 199 mg/dL [facility] Comment: Interpretive Data Fasting glucose >/= 126 [...] 2022. Calcium 9.5 8.5 - 10.3 mg/dL [facility] Bilirubin, total 0.7 0.1 - 1.2 mg/dL [facility] Protein, pl 7.4 6.5 - 8.5 g/dL [facility] Albumin 4.1 3.5 - 5.0 g/dL [facility] Alk phos 92 40 - 130 Units/L [facility] ALT 15 7 - 45 Units/L [facility] AST 22 10 - 45 Units/L [facility] Blood 09/26/2024 9:4 4 AM LETTER[employer] PRINTING MACHINIST 09/26/2024 9:49 AM LETTER[employer] PRINTING MACHINIST us Sarah Adkins MD LAB BLOOD ORDERABLES Final Result [facility] Department [place] [address] * CTA Abdomen Pelvis (09/25/2024 7:46 PM LETTER[employer] PRINTING MACHINIST) Anatomical Region Laterality Modality Body N/A Computed Tomogra phy 09/25/2024 8:10 PM LETTER[employer] PRINTING MACHINIST Impressions 09/25/2024 9:35 PM LETTER[employer] PRINTING MACHINIST 1. No acute abnormality in the abdomen [...] Claros M.D., Ph.D Narrative 09/25/2024 9:35 PM LETTER[employer] PRINTING MACHINIST EXAMINATION: Computed tomography of the abdomen and [...] Claros M.D., Ph.D us Sarah Adkins MD IM CT PROCEDURES Final Re sult * MRI Abdomen Pancreas W WO Contrast (09/25/2024 7:15 PM LETTER[employer] PRINTING MACHINIST) Anatomical Region Laterality Modality Body N/A Magnetic Resonan ce 09/26/2024 9:40 AM LETTER[employer] PRINTING MACHINIST Impressions 09/26/2024 12:19 PM LETTER[employer] PRINTING MACHINIST 1. 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 Narrative 09/26/2024 12:19 PM LETTER[employer] PRINTING MACHINIST EXAMINATION: MAGNETIC RESONANCE IMAGING OF THE ABDOMEN [...] by: Edmond Bowman M.D. Sarah Adkins MD IMG MRI PROCEDURES Final R esult * Surgical pathology (09/20/2024 9:03 AM LETTER[employer] PRINTING MACHINIST) Tissue (Polyp(s), colon/colorectal, esophageal, gastric) 09/20/2024 9:03 AM LETTERPRESS PRINTING MACHINIST Narrative PATHOLOGY [facility] - 09/21/2024 10:40 AM LETTER[employer] PRINTING MACHINIST EPIC results best viewed via link to PDF [facility] [place] [address] Note to Patients: This report may contain [...] Gender: F : 1945 (Age: 79) Address: [address] [place] [phone] [facility] #: [id number] Taken:09/20/2024 Received:09/20/2024 Reported: 09/21/2024 Patient Type: BWC EP SAME Client [facility] Service: Surgery Location: Physician(s): MD Pete Burch [...] interpretation for this case was performed at [facility], Department of Surgical Pathology, [address] [facility] [id number], [place] [address] CLIA # [id number] The performance characteristics of some immunohistochemical stains, fluorescence in-situ hybridization tests and immunophenotyping by flow cytometry cited in this report (if any) were determined by the Surgical Pathology and Flow Cytometry Departments at [facility] as part of an ongoing quality head program and in compliance with federally mandated [...] Surgical Pathology and Flow Cytometry Departments of [facility]. It has not been cleared or approved by the U. S. Food and Drug Administration. IMAGES AND SCANNED DOCUMENTS, IF INCLUDED, ONLY VIEWABLE IN PDF VERSION OF REPORT us Jak Bobo MD LAB PATHOLOGY ORDERABLE S Final Result PATHOLOGY [facility] * Flexible Sigmoidoscopy (09/20/2024 8:35 AM LETTER[employer] PRINTING MACHINIST) Anatomical Region Laterality Modality Other Narrative Procedure Note Jak Bobo MD - 09/20/2024 8:35 AM CST ENDOSCOPY LAB Patient Name: Emmanuelle Cruz Procedure Date: 09/20/2024 8:35 AM Date of : 1945 Admit Type: Outpatient Age: 79 Gender: Female Attending MD: Jak Bobo M.D. [facility]: [facility] 02 Note Status: Finalized Procedure: [...] were discussed and informed consentwas obtained. The [id number] was introducedthrough the anus and advanced to [...] Cancer W WO Contrast (08/30/2024 8:58 PM LETTER[employer] PRINTING MACHINIST) Anatomical Region Laterality Modality Body N/A Magnetic Resonan ce 08/31/2024 9:03 AM LETTER[employer] PRINTING MACHINIST Impressions 08/31/2024 12:44 PM LETTER[employer] PRINTING MACHINIST No definite MR evidence of rectal mass or pelvic metastatic disease. Dictated by: Evelio Chen MD The radiology attending physician has personally reviewed this study, and had reviewed and/or edited this written report and agrees with it. Electronically signed by: Alba Berger M.D. Narrative 08/31/2024 12:44 PM LETTER[employer] PRINTING MACHINIST EXAMINATION: MAGNETIC RESONANCE IMAGING OF THE PELVIS [...] Influenza A/B, COVID-19 antigen (08/23/2024 6:02 PM LETTER[employer] PRINTING MACHINIST) Influenza A Ag, POC Negative Negative [facility] Influenza B Ag, POC Negative Negative [facility] COVID-19 Ag POC Presumptive Negative Presumptive Negative, Invalid [facility] 08/23/2024 6:02 PM LETTERPRESS PRINTING MACHINIST More Arechiga NP POINT OF CARE TEST ORDERABL ES Final Result Performing Organization Address City/State/[facility] Co de Phone Number [facility] [address] [place] [address] * CT Chest Abdomen Pelvis W Contrast (08/23/2024 1:53 PM LETTER[employer] PRINTING MACHINIST) Anatomical Region Laterality Modality Body N/A Computed Tomogra phy 08/31/2024 2:28 PM LETTER[employer] PRINTING MACHINIST Narrative 08/31/2024 2:51 PM LETTER[employer] PRINTING MACHINIST EXAM DESCRIPTION: CT CHEST ABDOMEN PELVIS W [...] Bill Rodríguez M.D. AG T: Report ID: [id number] Reading Location: [id number] Procedure Note Bill Rodrgíuez MD - 08/31/2024 EXAM DESCRIPTION: CT CHEST ABDOMEN PELVIS W [...] Bill Rodríguez M.D. AG T: Report ID: [id number] Reading Location: [id number] us Mark Raines MD IM CT PROCEDURES Final R esult * OCT, Optic Nerve - OU - Both Eyes (08/23/2024 12:26 PM LETTER[employer] PRINTING MACHINIST) RNFL OS 86 micrometers CONTINUUM RNFL OD 92 micrometers CONTINUUM Anatomical Region Laterality Modality Head Optical Coherenc e Tomography Narrative 08/23/2024 12:26 PM LETTER[employer] PRINTING MACHINIST Right Eye Reliability was good. Temporal thickness [...] Final Result * Creatinine (08/13/2024 10:20 AM LETTER[employer] PRINTING MACHINIST) Pathologist [facility] Creatinine, Serum 0.63 0.57 - 1.00 mg/dL [facility] - 01 eGFR 91 >59 mL/min/1.73 [facility] - 01 08/13/2024 10:2 0 AM LETTER[employer] PRINTING MACHINIST 08/13/2024 Narrative [facility] - 08/14/2024 7:37 AM LETTER[employer] PRINTING MACHINIST Performed at: [address] [place] [id number] Social Staff Worker: Ranjit Lucero PhD, Phone: [phone] Mark Raines MD LAB BLOOD ORDERABLES Renetta l Result [facility] - 01 * CBC with auto differential (08/13/2024 8:10 AM LETTER[employer] PRINTING MACHINIST) Pathologist [facility] WBC 7.0 3.4 - 10.8 x10E3/uL [facility] [...] [facility] - 01 Blood 08/13/2024 8:10 AM [employer] PRINTING MACHINIST 08/13/2024 Narrative [facility] - 08/14/2024 7:09 AM LETTER[employer] PRINTING MACHINIST Performed at: [address] [place] [id number] Social Staff Worker: Ranjit Lucero PhD, Phone: [employer] Pete Molina MD LAB BLOOD ORDERABLES Final Result Performing Organization Address [facility] [[email or web address]] de Phone Number [facility] - * TSH (08/13/2024 8:10 AM LETTER[employer] PRINTING MACHINIST) TSH 1.220 0.450 - 4.500 uIU/mL [facility] - 01 Blood 08/13/2024 8:10 AM LETTER[employer] PRINTING MACHINIST 08/13/2024 Narrative [facility] - 08/14/2024 8:11 AM LETTER[employer] PRINTING MACHINIST Performed at: [address] [place] [id number] Social Staff Worker: Ranjit Lucero PhD, Phone: [phone] Pete Molina MD LAB BLOOD ORDERABLES Final Result Performing Organization Address [facility]/ZIP Co de Phone Number [facility] * Lipid panel (08/13/2024 8:10 AM LETTER[employer] PRINTING MACHINIST) Cholesterol 169 100 - 199 mg/dL [facility] - 01 Triglycerides 52 0 - 149 mg/dL [facility] - 01 HDL Cholesterol 73 >39 mg/dL [facility] - 01 VLDL 11 5 - 40 mg/dL [facility] - 01 LDL, calculated 85 0 - 99 mg/dL [facility] - 01 Blood 08/13/2024 8:10 AM LETTER[employer] PRINTING MACHINIST 08/13/2024 Narrative [facility] - 08/14/2024 7:09 AM LETTER[employer] PRINTING MACHINIST Performed at: [address] [id number] Social Staff Worker: Ranjit Lucero PhD, Phone: [phone] us Pete Molina MD LAB BLOOD ORDERABLES Final Result [facility] * (ABNORMAL) Comprehensive metabolic panel (08/13/2024 8:10 AM LETTER[employer] PRINTING MACHINIST) Glucose 103(H) 70 - 99 mg/dL [facility] [...] [facility] - 01 Blood 08/13/2024 8:10 AM LETTER[employer] PRINTING MACHINIST 08/13/2024 Narrative [facility] - 08/14/2024 7:09 AM LETTER[employer] PRINTING MACHINIST Performed at: - [address] [id number] Social Staff Worker: Ranjit Lucero PhD, Phone: [phone] us Pete Molina MD LAB BLOOD ORDERABLES Final Result [facility] - 01 * Surgical pathology (07/31/2024 10:45 AM LETTER[employer] PRINTING MACHINIST) Tissue (Polyp(s), colon/colorectal, esophageal, gastric) 07/31/2024 10:45 AM LETTER[employer] PRINTING MACHINIST Tissue (Colon, Biopsy) 07/31/2024 10:54 AM LETTER[employer] PRINTING MACHINIST Tissue (Colon, Biopsy) 07/31/2024 10:54 AM LETTER[employer] PRINTING MACHINIST Tissue (Colon, Biopsy) 07/31/2024 11:08 AM LETTER[employer] PRINTING MACHINIST Tissue (Polyp(s), colon/colorectal, esophageal, gastric) 07/31/2024 11:09 AM LETTERPRESS PRINTING MACHINIST Narrative PATHOLOGY [facility] - 08/06/2024 5:04 PM LETTER[employer] PRINTING MACHINIST [facility] Department of Pathology [address] [place] [address] Note to Patients: This report may contain [...] : 1945 (Age: 79) Gender: F Address: [address] [place] [address] [place] [address] [facility] #: [id number] Service: Gastro Location: Patient Type: [facility] Taken: 07/31/2024 Received: 07/31/2024 Accessioned: 07/31/2024 [...] and was sent to Dr. Raines via [employer] messaging on 08/06/2024. 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 Jared Durbin M.D., Ph.D. Report Electronically Reviewed and Signed Out By Jared Durbin M.D., Ph.D. 08/06/2024 17:04:35 Addenda: Addendum - 1 Addendum Diagnosis E. Large intestine, rectum, polyp [...] cm. Entirely submitted. Labeled E1. Jar 0. jjb/07/31/2024 16:02 LON Del Cid, PA (ASCP) Microscopic slide review and interpretation for this case was performed at [facility] Department of Surgical Pathology, [address] [id number], [place] [address] CLIA # [id number] The MLH-1 test was performed at [facility] Department of Surgical Pathology, [address] [place] [address]. The test MSH-2 was performed at [facility] Department of Surgical Pathology, [address] [place] [address]. The test MSH-6 was performed at [facility] Department of Surgical Pathology, [address] [place] [address]. The PMS-2 test was performed at [facility] Department of Surgical Pathology, [address] [place] [address]. Mark Raines MD LAB PATHOLOGY ORDERABLES Final Result PATHOLOGY [facility] * Colonoscopy (07/31/2024 10:41 AM LETTER[employer] PRINTING MACHINIST) Anatomical Region Laterality Modality Other Narrative Procedure Note Mark Raines MD - 07/31/2024 10:41 AM CST [facility] GI ENDOSCOPY Patient Name: Emmanuelle Cruz Procedure Date: 07/31/2024 10:41AM Date of : 1945 Admit Type: Outpatient Age: 79 Gender: Female Attending MD: Mark Raines MD Room: [facility] ENDOSCOPY ROOM 04 Note Status: Finalized Procedure: [...] The scope was passed under direct vision.The [id number] colonoscope was introduced through theanus and advanced [...] On: 07/31/2024 10:41 AM Recognized by the [employer] for promoting quality in endoscopy Mark Raines MD ENDOSCOPY PROCEDURES Renetta l Result * ECG 12 lead (07/31/2024 10:02 AM LETTER[employer] PRINTING MACHINIST) Ventricular Rate EKG/Min 59 BPM [facility] Atrial Rate [address] [facility] GA-Interval (MSEC) [address] [facility] QRS-Interval (MSEC) [address] [facility] QT-Interval (MSEC) [address] [facility] QTc [address] [facility] P [place] [address] [facility] R [place] [address] [facility] T [place] [address] [facility] Diagnosis Sinus bradycardia Otherwise normal ECG No previous ECGs available Confirmed by SULTAN OTT M.D. ([id number]) on 07/31/2024 4:32:58 PM [facility] 07/31/2024 10:0 2 AM LETTER[employer] PRINTING MACHINIST 07/31/2024 4:32 PM LETTER[employer] PRINTING MACHINIST Ke Purcell MD ECG ORDERABLES Final Result [facility] * HM MAMMOGRAPHY (05/21/2023) Historical Provider HEALTH MAINTENANCE Final Result * Dexa Axial Skeleton Bone Density 1 or 2 Site (12/10/2021 11:19 AM CDT) Anatomical Region Laterality Modality Body N/A Other 12/10/2021 12:4 9 PM CDT Narrative 12/10/2021 12:50 PM CDT EXAM DESCRIPTION: DEXA AXIAL SKELETON BONE DENSITY 1 OR MORE SITES REASON FOR STUDY: 76 y/o year old F with given history of screening. 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 MF: [id number] Report ID: [id number] Reading Location: [id number] Procedure Note Americo Dugan MD - 12/10/2021 EXAM DESCRIPTION: DEXA AXIAL SKELETON BONE DENSITY 1 OR MORE SITES REASON FOR STUDY: 76 y/o year old F with given history ofscreening. Delivery Route Driver/Model: [employer] (S/N [id number]) CLINICAL INFORMATION: Current height: 64.5 inches Maximum [...] Americo Dugan M.D. MF: [id number] Report ID: [id number] Reading Location: [id number] us Pete Molina MD IMG DXA PROCEDURES Final Re sult * Hepatitis C antibody (11/30/2021 10:49 AM CDT) [facility] Hep C Ab <0.1 0.0 - 0.9 s/co ratio [facility] - 01 Comment: Negative: < 0.8 Indeterminate: 0.8 - 0.9 Positive: > 0.9 The CDC recommends that a positive HCV antibody result be followed up with a HCV Nucleic Acid Amplification test (488440). Blood specimen (specimen) 11/30/2021 10:49 AM CDT 11/30/2021 Narrative [facility] - 12/01/2021 8:12 AM CDT Performed at: 01 - [facility] [address] [id number] Social Staff Worker: Ranjit Luecro PhD, Phone: [phone] Pete Molina MD LAB MICROBIOLOGY - GENERAL ORDERABLES Final Result [facility] - 01 from Last 3 Months or Most Recently Relevant to Health [place] [address] [place] [address] T MEDICARE [employer] MEDICARE Advance Directives For more information, please contact: [phone] * Full Code (Latest Code Status on File) Date Activated Date Inactivated Comments 09/20/2024 8:03 AM 09/20/2024 1:43 PM Care Teams Tableau Report Developer Relationship Specialty Start Date End Date Pete Molina MD [address] [place] [address] PCP - General Family Medicine 11/09/21 Sergio Eastman MD [address] [place] [address] Consulting Physician Neurology 11/09/21 Daylin Wheatley MD [address] [place] [address] Surgeon Ophthalmology 11/09/21 Tereso Crocker MD [address] [place] [address] Referring Physician Family Medicine 11/09/21 Travis Choudhary MD [address] [place] [address] Referring Physician Gastroenterology 11/09/21 Gavino Dempsey MD [address] [facility] [address] [place] [address] Referring Physician Rheumatology 11/10/22 Sarah Adkins MD [address] [place] [address] Consulting Physician Medical Oncology 08/10/24 Jak Bobo MD [address] [facility] [id number] [place] [address] Surgeon Colon and Rectal Surgery 09/19/24
--- OUTSIDE RECORDS SUMMARY | 2024-10-23 14:04 | XMS_ITS | Clinical Summary ---
Author Organization [facility] Address [address] [facility] [place] [address] Care Team Providers Care Subgrade Tester Name Role Phone Pete Molina MD Primary Care Provider [phone] Source Comments [facility],non-owned Affiliates and Associated Physician Practices is amultiple site organization consisting of ambulatory clinics and hospital sitesin [place], [place], [place] and [place]. This disclosure is being madepursuant to the Care Everywhere program and may not contain all information available regarding this patient. Last updated 18.[facility] Allergies Active Allergy Reactions Criticality Noted Date Comments Clindamycin Rash Medium 12/21/2023 Erythromycin Rash Medium 08/15/2024 Hydrocodone-Acetaminophen Itching Low 07/29/2017 Latex Rash Medium 05/31/2023 Penicillins Urticaria,Rash Medium 07/29/2017 Sulfa Drugs Other 03/27/2024 Sulfacetamide Itching Low 07/29/2017 Sulfur 07/29/2017 Tetracycline Urticaria,Rash Medium 07/29/2017 Tramadol 07/29/2017 Hydrocodone-Acetaminophen 07/29/2017 Medications * Be aware that medications may not be up to date on this document. Alwaysverify current medications with the patient. Medication Sig Dispensed Refills Start Date End Date Status gabapentin PHN (GRALISE) 300 MG tablet Take 1 (one) tablet by mouth 3 times daily Active Fexofenadine HCl (DELANEY PO) Active SERTRALINE HCL PO Take 50 mg by mouth once daily Active LEVOTHYROXINE SODIUM PO Active ROPINIRole HCl (REQUIP PO) Take 1 mg by mouth at bedtime Active Fluticasone Propionate (FLONASE NA) Active Mesalamine (ASACOL PO) Active albuterol HFA (PROVENTIL;VENTOLIN;P ROAIR) 108 (90 BASE) MCG/ACT inhaler Inhale 2 puffs by mouth every 6 hours as needed 1 Inhaler 07/29/2017 Active chlorthalidone (Hygroton) 25 MG tablet Take 1 (one) tablet by mouth once daily 90 tablet 3 10/08/2022 Active calcium 200 MG tablet Take 1 (one) tablet by mouth once daily Active Vitamin E 100 units TABS Active Cholecalciferol (Vitamin D3) 25 MCG (1000 UT) Take 1 (one) capsule by mouth once daily 08/01/2024 Active Active Problems Problem Noted Date Diagnosed Date Osteopenia after menopause 11/11/2022 Assessment & Plan (11/11/2022 11:40 AM WOODWORKING MACHINE SETTER): DEXA performed at [facility] in [place], [place] on 11/02/2022 indicated a left femoral hip neck T-score of-1.1 and right femoral hip neck T-score of -1.1. Continue calcium and vitamin-D supplementation but this point will defer the start of bisphosphonate therapy would encourage follow-up DEXA in 12-24 months especially with anticipated use of low-dose prednisone over the next 12 months. Anxiety 10/08/2022 Bilateral leg pain 10/08/2022 Depressive disorder 10/08/2022 Fibroid, uterine 10/08/2022 Hypothyroidism 10/08/2022 IBS (irritable bowel syndrome) 10/08/2022 Intermittent tremor 10/08/2022 Seasonal allergic rhinitis 10/08/2022 Venous insufficiency 10/08/2022 Lymphedema of both lower extremities 10/08/2022 Major depressive disorder, recurrent, mild 12/28 Polyneuropathy 11/07/2020 Overview (10/08/2022): Last Assessment & Plan: 76 year old who presents with predominant [...] PCP and return as needed if change. Resting tremor 11/07/2020 Overview (10/08/2022): Last Assessment & Plan: Reports tremors have really only occurred with [...] re-examine in 1 year or if change Dry eye syndrome of both eyes 10/14/2020 Overview (10/08/2022): Last Assessment & Plan: Uses afts at bedtime (qhs). Occasionally uses during the day. Add hot compresses. Pseudophakia of both eyes 06/05/2019 Overview (10/08/2022): Phaco/ intraocular lens (IOL) both eyes (OU)- eNgro 06/05/19- YAG cap right eye (OD)- LMT 08/14/19- YAG cap left eye (OS)- LMT Last Assessment & Plan: From Americo Tom MD Initially happy but has gotten worse with PCO changes 06/05/19- YAG cap right eye (OD)- LMT 08/14/19- YAG cap left eye (OS)- LMT Well healed after YAG cap both eyes (OU). Implants in good position. Vision stable. Explained OTC readers are typical after regular cataract extraction (CE) both eyes (OU) with aim plano. Restless legs syndrome 10/09/2014 Overview (10/08/2022): Chi-Ekbom syndrome Last Assessment & Plan: requip 1 mg at bedtime Snoring 10/09/2014 Overview (10/08/2022): Snoring Resolved Problems Problem Noted Date Diagnosed Date Resolved Date Osteoporosis screening 10/12/202211/11 Overview (10/12/2022): Needs follow up DEXA BMD screening due to likely need for steroid treatment over the next 12 months. Begin calcium + vitamin D. Polymyalgia rheumatica syndrome 10/12/2022 03/27/2024 Overview (10/12/2022): Likely onset late 07/2022 with recent rapid and complete response when prescribed prednisone 20 mg/d x 7d (from ED). Last dose taken 4 days ago. Encounters Date Type Department Care Team Description 09/13/2024 9:40 AM WOODWORKING MACHINE SETTER Office Visit [facility] - Rheumatology [address] [facility], [address] [place] [address] Gavino Dempsey, Greater trochanteric bursitis of right hip (Primary Dx); Greater trochanteric bursitis of left hip 09/04/2024 Travel 08/01/2024 Travel from Last 3 Months Immunizations Name Administration Dates Next Due INFLUENZA VACCINE 06/21/2023 Family History Medical History Relation Name Comments Renal Disease Father Cancer Mother Relation Name Status Comments Father Mother Social History Tobacco Use Types Packs/Day Years Used Date Smoking Tobacco: Never Smokeless Tobacco: Never Tobacco Cessation:Counseling Given: Not Answered Alcohol Use Standard Drinks/Week Comments Not Currently 0 (1 standard drink = 0.6 oz pur e alcohol) PHQ-2 Answer Date Recorded Patient Health Questionnaire-2 Score 0 09/13/2024 Sex and Gender Information Value Date Recorded Sex Assigned at Not on file Gender Identity Not on file Sexual Orientation Not on file Last Filed Vital Signs Vital Sign Reading Time Taken Comments Blood Pressure 138/78 09/13/2024 9:36 AM WOODWORKING MACHINE SETTER Pulse 64 09/13/2024 9:36 AM WOODWORKING MACHINE SETTER Temperature 36.1 C (97 F) 09/13/2024 9:36 AM WOODWORKING MACHINE SETTER Respiratory Rate 16 09/13/2024 9:36 AM WOODWORKING MACHINE SETTER Oxygen Saturation 98% 09/13/2024 9:36 AM WOODWORKING MACHINE SETTER Inhaled Oxygen Concentration - - Weight 75.1 kg (165 lb 8 oz) 08/01/2024 9:26 AM WOODWORKING MACHINE SETTER Height 162.6 cm (5' 4 ) 08/01/2024 9:26 AM WOODWORKING MACHINE SETTER Body Mass Index 28.41 08/01/2024 9:26 AM WOODWORKING MACHINE SETTER Plan of Treatment Health Maintenance Due Date Last Done Comments HEPATITIS C SCREENING 03/15/1965 DTAP/TDAP/TD VACCINES (1 - Tdap) 1966 PNEUMOCOCCAL VACCINE 50+ (1 of 1 - PCV) 1997 ZOSTER VACCINE (1 of 2) 1997 Respiratory Syncytial Virus (RSV) Vaccine Pt: or over 60 yrs (1 - 1-dose 75+ series) 2022 COVID-19 VACCINE ( season) 2024 06/22/2021, 11/08/2020, 10/18/2020 INFLUENZA VACCINE (#1) 2024 3, 06/06/2021, 06/04/2019, Additional history exists MEDICARE AWV CALENDAR YEAR 2024 BONE DENSITY TESTING Completed 11/02/2022, 12/11/19 22 DEPRESSION SCREENING Completed 09/13/2024, 08/01/20 24 HEPATITIS B VACCINE Aged Out No longe r eligible based on patient's age to complete this topic HIB VACCINE Aged Out No longer eligi ble based on patient's age to complete this topic HPV VACCINE Aged Out No longer eligi ble based on patient's age to complete this topic MENINGOCOCCAL (Group B) VACCINE Aged Out No longer eligible based on patient's age to complete this topic MENINGOCOCCAL VACCINE Aged Out No mitzi costa eligible based on patient's age to complete this topic Procedures Procedure Name Priority Date/Time Associated Diagnosis Comments DEXA BONE DENSITY AXIAL SKELETON Routine 11/02/2022 from Last 3 Months or Most Recently Relevant to Health Maintenance Results * DEXA BONE DENSITY AXIAL SKELETON (11/02/2022) Anatomical Region Laterality Modality Other Gavino MARIEA ORDERABLES from Last 3 Months or Most Recently Relevant to Health Maintenance Care Teams Subgrade Tester Relationship Specialty Start Date End Date Pete Molina MD [address] [facility] [address] [place] [id number] PCP - General Family Medicine 02/02/23
--- OUTSIDE RECORDS SUMMARY | 2024-10-23 14:04 | XMS_ITS ---
Author Organization [facility] Address [address] [address] Care Team Providers Care Chain Forming Machine Operator Name Role Phone Pete Molina Primary Care Provider IZAIAH Nash Unavailable [phone] Allergies Allergen (clinical drug ingredient) Drug/Non Drug Allergy documented on EMR Reaction Allergy Type Onset Date Status Vicodin Unknown Drug Allergy Active clindamycin Clindamycin Unknown Drug Allergy Act kylee erythromycin Erythromycin Unknown Drug Allergy A ctive Penicillin Unknown Drug Allergy Active Substance with sulfonamide structure and antibacterial mechanism of action (substance) Sulfa Antibiotics Unknown Drug Allergy Active tetracycline Tetracycline Unknown Drug Allergy A ctive tramadol Tramadol Unknown Drug Allergy Active REASON FOR VISIT Spider Veins Medications Medication SIG (Take, Route, Frequency, Duration) Notes Start Date End Date Status rOPINIRole HCl 1 MG Oral for 90 Days Active Naproxen 500 MG TAKE 1 TABLET BY KEYUR TH TWICE A DAY WITH MEALS Oral for 15 Days Active Anoro Ellipta 62.5-25 MCG/ACT Inhalation for 90 Days Activ e Ciprofloxacin HCl 500 MG TAKE 1 TABLET B Y MOUTH TWICE A DAY FOR 7 DAYS Oral for 7 Days Active Chlorthalidone 25 MG Oral for 90 Days Active Sertraline HCl 50 MG 1 tablet Orally Onc e a day Active Flonase Active Gabapentin 300 MG 1 capsule Orally Onc e a day Active Esther Active Levoxyl 88 MCG Oral for 90 Days Active Vitamin B 12 Active Vitamin D Active Social History Tobacco Use: Social History Observation Description Date Details (start date - stop date) Never Smoker NA - NA Tobacco Use/Smoking Question Answer Notes Are you a nonsmoker Alcohol Screen (Audit-C) Question Answer Notes Did you have a drink contain ing alcohol in the past year? Yes How often did you have a dri nk containing alcohol in the past year? 2 to 4 times a month (2 points) How often did you have 6 or more drinks on one occasion in the past year? Less than monthly (1 point) Points 3 Interpretation Positive Problems Problem Type SNOMED Code ICD Code Onset Dates Problem Status W/U Status Risk Notes Problem Pain co-occurrent and due to varicose veins of bilateral legs (1244088666851 9100) Varicose veins of bilateral lower extremities with pain (I83.813) Active confirmed Vital Signs Blood pressure systolic 120 mm Hg 04/16/20 24 Blood pressure diastolic 64 mm Hg 024 Heart Rate 65 /min 04/16/2024 Weight 164.4 lbs 04/16/2024 BMI 25.75 kg/m2 04/16/2024 Height 67 in 04/16/2024 Encounters Encounter Location Date Provider Diagnosis [address] [id number] 04/16/2024 IZAIAH NOLANDORIAN Pain in leg, unspecified M79.606 and Varicose veins of bilateral lower extremities with pain I83.813 Assessments Encounter Date Diagnosis (ICD Code) Assessment Notes Treatment Notes Treatment Clinical Notes Section Notes 04/16/2024 Pain in leg, unspecified (ICD-10 - M79.606) 04/16/2024 Varicose veins of bilateral lower extremities with pain (ICD-10 - I83.813) Recommend use of 20-30mmhg graduated compression stockings today. Will continue with all conservative measures, including compression stockings, leg elevation, exercise, and NSAID-s. Will schedule for VRS of BLE to better understand patient's venous disease. Further recommendations will follow. Plan Of Treatment Treatment Notes Assessment Notes Varicose veins of bilateral lower extremities with pain Recommend use of 20-30mmhg graduated compression stockings today. Will continue with all conservative measures, including compression stockings, leg elevation, exercise, and NSAID-s. Will schedule for VRS of BLE to better understand patient's venous disease. Further recommendations will follow. Next Appt Details Follow Up: 2 Weeks, Reason: Progress Notes * Elisa TENAOB:1945 ( 79 yo F)Acc No.[id number]:04/16/2024 Patient: Bud REALSummer Chantel Provider: Juan Diego Cotto MD :1945 A ge:79 Y S ex:Female Date:04/16/2024 Address:[address] [place] [address] [place] [id number] Pcp:Pete Molina Subjective: * Chief Complaints: * S pider Veins * HPI: P atient presents for: 79 yo wf,with known venous disease,sp bilateral venous stripping,injections,legs,worse on the left with recent progressive pains/aciness,edema,cramping,worse on standing/sitting,affecting her ADL negatively,have been wearing stocking for years,currently wihtout benefit. * ROS: G eneral/Constitutional: Admits F atigue. P eripheral Vascular: Admits P ainful extremities. N eurologic: Admits T ingling/Numbness. L eg Swelling, Ankle Swelling Leg pain Burning. * Medical History: * Medications: T akingVitamin B 12 Vitamin [...] Oral rOPINIRole HCl 1 MG Tablet Oral Medication List reviewed and reconciled with the patientTaking Vitamin B 12 Taking Vitamin D Taking [...] Taking rOPINIRole HCl 1 MG Tablet Oral Medication List reviewed and reconciled with the patient * Allergies: T ramadolSulfa AntibioticsPenicillinVicodinClindamycinTetracyclineErythromycinno[Allergies Verified] Objective: * Vitals: O 2: 98, BP:120/64mm Hg, HR:65/min, Wt: 164.4 lbs, BMI:25.75Index, Ht: 67 in. * Examination: G eneral Examination: GENERAL APPEARANCE: i n no acute distress, well developed, well nourished. HEAD: n ormocephalic, atraumatic. EYES: p upils equal, round, reactive to light and accommodation. EARS: n ormal. ORAL CAVITY: m ucosa moist. THROAT: c lear. NECK/THYROID: n kofi supple, full range of motion, no cervical lymphadenopathy. SKIN: n o suspicious lesions, warm and dry. HEART: n o murmurs, regular rate and rhythm, S1, S2 normal.? LUNGS: c lear to auscultation bilaterally. ABDOMEN: n ormal, bowel sounds present, soft, nontender, nondistended. EXTREMITIES: n o clubbing, cyanosis, 2+ edema,worse on the left,ruggiero phlebectatica/ceap4c,decereased distal pulses. NEUROLOGIC: n onfocal, motor strength normal upper and lower extremities, sensory exam intact. Assessment: * Assessment: 1. P ain in leg, unspecified - M79.606 (Primary) 2 . V aricose veins of bilateral lower extremities with pain - I83.813 Plan: * Treatment: * Procedure Codes: * Follow Up: 2 Weeks * Images: * Sign off status: Completed true * Provider: Juan Diego Cotto MD Date: 0 04/16/2024 Generated for Alayna hernández/Urszula/Sherita on: 0 10/23/2024 02:01 PM PEST CONTROL SUPERVISOR History and Physical Notes * HPI (History of Present Illness) Category Sub-Category Detail Notes Category Not es Patient presents for 79 yo w f,with known venous disease,sp bilateral venous stripping,injections,legs,wor se on the left with recent progressive pains/aciness,edema,cramping, worse on standing/sitting,affecting her ADL negatively,have been wearing stocking for years,currently wihtout benefit Examination Category Sub-Category Detail Notes Category Not es General Examination GENERAL APPEARANCE: in no ac [place] distress, well developed, well nourished HEAD: normocephalic, atrau matic EYES: pupils equal, round, reactive to light and accommodation EARS: normal THROAT: clear NECK/THYROID: neck supple, full ra nge of motion, no cervical lymphadenopathy HEART: no murmurs, regular rate and rhythm, S1, S2 normal LUNGS: clear to auscultatio n bilaterally ABDOMEN: normal, bowel sounds present, soft, nontender, nondistended NEUROLOGIC: nonfocal, motor stre ngth normal upper and lower extremities, sensory exam intact SKIN: no suspicious lesion s, warm and dry EXTREMITIES: no clubbing, cyanosi s, 2+ edema,worse on the left,ruggiero phlebectatica/ceap4c,decereased distal pulses ORAL CAVITY: mucosa moist
--- OUTSIDE RECORDS SUMMARY | 2024-10-23 14:04 | XMS_ITS ---
Author Organization [facility] Address [address] [facility] [address] [facility] [address] [place] [address] Care Team Providers Care Mechanical Systems Engineer Name Role Phone Pete Molina Primary Care Provider IZAIAH Nash Unavailable [phone] Encounters Encounter Location Date Provider Diagnosis [facility] [address] [facility] [address] [place] [address] 05/01/2024 IZAIAH COTTO Plan Of Treatment No Information Progress Notes * Elisa TENAOB:1945 ( 79 yo F)Acc No.[id number]:05/01/2024 Patient: Chantel COON :1945 A ge:79 Y S ex:Female [address] [place] [address] * true * Date: Generated for Dahliai edgar/Urszula/eTransmitting on: 0 10/23/2024 02:01 PM RADIOLOGY ASST
--- OUTSIDE RECORDS SUMMARY | 2024-10-23 14:04 | XMS_ITS | Patient Health Record ---
Author Organization [facility] Address [address] [facility] [address] [address] Care Team Providers Care Chemist Biological Name Role Phone Pete Molina Primary Care Provider IZAIAH Nash Unavailable [phone] Allergies Allergen (clinical drug ingredient) Drug/Non Drug [...] ctive tramadol Tramadol Unknown Drug Allergy Active Reason For Referral No Information Medications Medication SIG (Take, Route, Frequency, Duration) Notes Start Date End Date Status Vitamin B 12 Active rOPINIRole HCl 1 MG Oral for 90 Days Active Naproxen 500 MG TAKE 1 TABLET BY KEYUR TH TWICE A DAY WITH MEALS Oral for 15 Days Active Ciprofloxacin HCl 500 MG TAKE 1 TABLET B Y MOUTH TWICE A DAY FOR 7 DAYS Oral for 7 Days Active Chlorthalidone 25 MG Oral for 90 Days Active Anoro Ellipta 62.5-25 MCG/ACT Inhalation for 90 Days Activ e Levoxyl 88 MCG Oral for 90 Days Active Gabapentin 300 MG 1 capsule Orally Onc e a day Active Esther Active Sertraline HCl 50 MG 1 tablet Orally Onc e a day Active Flonase Active Vitamin D Active Social History Tobacco [...] due to varicose veins of bilateral legs (3220607323694 9100) Varicose veins of bilateral lower extremities with pain (I83.813) Active confirmed Vital Signs Heart Rate 65 /min 04/16/2024 Blood pressure diastolic 64 mm Hg 04/16/2024 Height 67 in 04/16/2024 Blood pressure systolic 120 mm Hg 04/16/2024 Weight 164.4 lbs 04/16/2024 BMI 25.75 kg/m2 04/16/2024 Encounters Encounter Location Date Provider Diagnosis [facility] [address] [address] 05/01/2024 IZAIAH COTTO [address] [id number] 04/16/2024 IZAIAH COTTO Pain in leg, unspecified M79.606 and Varicose veins of bilateral lower extremities with pain I83.813 [facility] [address] [place] [phone] 05/01/2024 IZAIAH COTTO Assessments Encounter Date Diagnosis (ICD Code) Assessment Notes Treatment Notes Treatment Clinical Notes Section Notes 04/16/2024 Varicose veins of bilateral lower extremities with pain (ICD-10 - I83.813) Recommend use of 20-30mmhg graduated compression stockings today. Will continue with all conservative measures, including compression stockings, leg elevation, exercise, and NSAID-s. Will schedule for VRS of BLE to better understand patient's venous disease. Further recommendations will follow. 04/16/2024 Pain in leg, unspecified (ICD-10 - M79.606) Plan Of Treatment No Information Insurance Providers Payer Name Payer Address Payer Phone Subscriber Number Group Number Insured Name Patient Relationship to Insured Coverage Start Date Coverage End Date [employer] Medicare [address] FARIDEH Patel [id number] Chantel Tena Self - patient is the insured Medical (General) History Medical History History ICD Code neuropathy,DVT
--- OUTSIDE RECORDS SUMMARY | 2024-10-23 14:04 | XMS_ITS | Patient Health Summary ---
Author Organization [facility] Address [address] [place] [address] Care Team Providers Care Corporate Relations Director Name Role Phone Pete Molina MD Primary Care Provider Note from [facility],non-owned Affiliates and Associated Physician Practices is amultiple site organization consisting of ambulatory clinics and hospital sitesin [place], [place], [place] and [place]. This disclosure is being madepursuant to the Care Everywhere program and may not contain all information available regarding this patient. Last updated 18.[facility] Allergies * Clindamycin(Rash) -Medium Criticality * Erythromycin(Rash) -Medium Criticality * Hydrocodone-Acetaminophen(Itching) -Low Criticality * Latex(Rash) -Medium Criticality * Penicillins(Urticaria,Rash) -Medium Criticality * Sulfa Drugs(Other) * Sulfacetamide(Itching) -Low Criticality * Sulfur * Tetracycline(Urticaria,Rash) -Medium Criticality * Tramadol * Hydrocodone-Acetaminophen Medications * Be aware that medications may not be up to date on this document. Alwaysverify current medications with the patient. * gabapentin PHN (GRALISE) 300 MG tablet Take 1 (one) tablet by mouth 3 times daily * Fexofenadine HCl (DELANEY PO) * SERTRALINE HCL PO Take 50 mg by mouth once daily * LEVOTHYROXINE SODIUM PO * ROPINIRole HCl (REQUIP PO) Take 1 mg by mouth at bedtime * Fluticasone Propionate (FLONASE NA) * Mesalamine (ASACOL PO) * albuterol HFA (PROVENTIL;VENTOLIN;PROAIR) 108 (90 BASE) MCG/ACT inhaler (Started 07/29/2017) Inhale 2 puffs by mouth every 6 hours as needed * chlorthalidone (Hygroton) 25 MG tablet(Started 10/08/2022) Take 1 (one) tablet by mouth once daily 3 refills by 10/08/2023 * calcium 200 MG tablet Take 1 (one) tablet by mouth once daily * Vitamin E 100 units TABS * Cholecalciferol (Vitamin D3) 25 MCG (1000 UT)(Started 08/01/2024) Take 1 (one) capsule by mouth once daily Active Problems Problem Noted Date Diagnosed Date Osteopenia after menopause 11/11/2022 Anxiety 10/08/2022 Bilateral leg pain 10/08/2022 Depressive disorder 10/08/2022 Fibroid, uterine 10/08/2022 Hypothyroidism 10/08/2022 IBS (irritable bowel syndrome) 10/08/2022 Intermittent tremor 10/08/2022 Seasonal allergic rhinitis 10/08/2022 Venous insufficiency 10/08/2022 Lymphedema of both lower extremities 10/08/2022 Major depressive disorder, recurrent, mild 12/28 Polyneuropathy 11/07/2020 Resting tremor 11/07/2020 Dry eye syndrome of both eyes 10/14/2020 Pseudophakia of both eyes 06/05/2019 Restless legs syndrome 10/09/2014 Snoring 10/09/2014 Resolved Problems Problem Noted Date Diagnosed Date Resolved Date Osteoporosis screening 10/12/202211/11 Polymyalgia rheumatica syndrome 10/12/2022 03/27/2024 Immunizations * INFLUENZA VACCINE(Given 06/21/2023) Social History Tobacco Use Types Packs/Day Years [...] Comments Blood Pressure 138/78 09/13/2024 9:36 AM MANAGER ADMINISTRATIVE SERVICES Pulse 64 09/13/2024 9:36 AM MANAGER ADMINISTRATIVE SERVICES Temperature 36.1 C (97 F) 09/13/2024 9:36 AM MANAGER ADMINISTRATIVE SERVICES Respiratory Rate 16 09/13/2024 9:36 AM MANAGER ADMINISTRATIVE SERVICES Oxygen Saturation 98% 09/13/2024 9:36 AM MANAGER ADMINISTRATIVE SERVICES Inhaled Oxygen Concentration - - Weight 75.1 kg (165 lb 8 oz) 08/01/2024 9:26 AM MANAGER ADMINISTRATIVE SERVICES Height 162.6 cm (5' 4 ) 08/01/2024 9:26 AM MANAGER ADMINISTRATIVE SERVICES Body Mass Index 28.41 08/01/2024 9:26 AM MANAGER ADMINISTRATIVE SERVICES Procedures * ERYTHROCYTE SEDIMENTATION RATE(Performed 03/12/2024) Performed for Bilateral hip pain * C-REACTIVE PROTEIN(Performed 03/12/2024) Performed for Bilateral hip pain * C-REACTIVE PROTEIN(Performed 12/10/2022) Performed for Polymyalgia rheumatica syndrome (HCC) * C-REACTIVE PROTEIN(Performed 11/11/2022) Performed for Polymyalgia rheumatica syndrome (HCC) * DEXA BONE DENSITY AXIAL SKELETON(Performed 11/02/2022) * ERYTHROCYTE SEDIMENTATION RATE(Performed 10/12/2022) Performed for Polymyalgia rheumatica syndrome (HCC) * C-REACTIVE PROTEIN(Performed 10/12/2022) Performed for Polymyalgia rheumatica syndrome (HCC) Results * C-REACTIVE PROTEIN (03/12/2024 2:55 PM CDT) Only the most recent of4 resultswithin the time period is included. Pathologist [facility] [place] C-Reactive Protein 4 0 - 10 mg/L [facility] INSURANCE BILL Blood BLOOD SPECIMEN / Unknown 03/12/2024 2:55 PM CDT 03/12/2024 Narrative Resulting Agency Comment Lab Testing performed at: [facility] [address] [facility] [id number] Gavino Dempsey DO LAB - CHEMISTRY [place] [facility] INSURANCE BILL [address] [place] [address] * ERYTHROCYTE SEDIMENTATION RATE (03/12/2024 2:55 PM CDT) Only the most recent of2 resultswithin the time period is included. Erythrocyte Sedimentation Rate Westergren 21 0 - 40 mm/hr [facility] INSURANCE BILL Blood BLOOD SPECIMEN / Unknown 03/12/2024 2:55 PM CDT 03/12/2024 Narrative Resulting Agency Comment Lab Testing performed at: [facility] [address] [facility] [id number] Gavino Dempsey DO LAB - HEMATOLOGY ORD ERABLES [facility] INSURANCE BILL [address] [place] [address] * DEXA BONE DENSITY AXIAL SKELETON (11/02/2022) Anatomical Region Laterality Modality Other Gavino Dempsey DO DEXA ORDERABLES Care Teams Corporate Relations Director Relationship Specialty Start Date End Date Pete Molina MD [address] [facility] [address] [place] [address] PCP - General Family Medicine 02/02/23
--- OUTSIDE RECORDS SUMMARY | 2024-10-23 14:04 | XMS_ITS | Encounter Summary ---
Author Organization [facility] Address [address] [place] [address] Phone Care Team Providers Care Head Still Operator Name Role Phone Pete Molina MD Primary Care Provider Sergio Eastman MD Unavailable [phone] Daylin Wheatley MD Unavailable [phone] Tereso Crocker MD Unavailable [phone] Travis Choudhary MD Unavailable [phone] Gavino Dempsey MD Unavailable Sarah Adkins MD Unavailable [phone] Jak Bobo MD Unavailable [phone] Encounter Details Date Type Department Care Team (Late st Contact Info) Description 10/22/2024 Telephone [facility] Surgery [address] [place] [address] Medical Office Building [address] [place] [address] Jelly Castro RMA Social History Tobacco Use Types Packs/Day Years Used Date Smoking Tobacco: Never Passive Smoke Exposure: Never Smokeless Tobacco: Never Alcohol Use Standard Drinks/Week Comments No 0 [...] staff should administer the PHQ-9) 0 08/23/2024 [facility] - Occupational Stress Questionnaire Answer Date Recorded [...] on file Legal Sex Female 1:22 AM BODY TRIMMER Gender Identity Not on file Sexual Orientation Not on file 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 ORDERING PROVIDER: Dr. Jak Bobo PROCEDURE DESCRIPTION: transanal endoscopic microsurgery CPT CODE: 0184T DIAGNOSIS CODE: C20 PLACE OF SERVICE: [facility] OR -Clinic -OR -Other ADMIT STATUS: outpt in a bed TENTATIVE DATE OF SERVICE: 11/09/2024 OTHER: TRIMMER documented in this encounter Plan of Treatment Upcoming Encounters Date Type Department Care Team (Latest Contact Info) Description 11/09/2024 7:15 AM BODY TRIMMER Hospital Encounter [facility] Operating Room [address] [place] [address] Jak Bobo MD [address] [facility] [phone] [place] [address] 11/09/2024 7:15 AM BODY TRIMMER - 11/09/2024 9:15 AM BODY TRIMMER Surgery [facility] Operating Room [address] [address] Jak Bobo MD [address] [facility] [phone] [place] [address] ENDOSCOPIC TRANSANAL MICROSURGERY Scheduled Procedures Name Priority Associated Diagnoses Date/Ti nm ENDOSCOPIC TRANSANAL MICROSURGERY Rectal cancer (CMS/HCC) (HCC) 11/09/2024 7:15 AM BODY TRIMMER documented as of this encounter Visit Diagnoses Not on filedocumented in this encounter Care Teams Head Still Operator Relationship Specialty Start Date End Date Pete Molina MD [address] [place] [address] PCP - General Family Medicine 11/09/21 Sergio Eastman MD [address] [place] [address] Consulting Physician Neurology 11/09/21 Daylin Wheatley MD [address] [place] [address] Surgeon Ophthalmology 11/09/21 Tereso Crocker MD [address] [place] [address] Referring Physician Family Medicine 11/09/21 Travis Choudhary MD [address] [place] [address] Referring Physician Gastroenterology 11/09/21 Gavino Dempsey MD [address] [place] [address] Referring Physician Rheumatology 11/10/22 Sarah Adkins MD [address] [place] [address] Consulting Physician Medical Oncology 08/10/24 Jak Bobo MD [address] [facility] [phone] [place] [address] Surgeon Colon and Rectal Surgery 09/19/24 documented as of this encounter
--- OUTSIDE RECORDS SUMMARY | 2024-10-23 14:04 | XMS_ITS | Encounter Summary ---
Author Organization [facility] Address [address] [place] [address] Phone Care Team Providers Care Director Talent Acquisition Name Role Phone Pete Molina MD Primary Care Provider [phone] Sergio Eastman MD Unavailable Daylin Wheatley MD Unavailable [phone] Tereso Crocker MD Unavailable [phone] Travis Choudhary MD Unavailable [phone] Gavino Dempsey MD Unavailable Sarah Adkins MD Unavailable [phone] Jak Bobo MD Unavailable [phone] Reason for Referral * Diagnostic Imaging (Routine) - Pending Review Specialty Diagnoses / Procedures Referred By Contac t Referred To Contact Diagnoses Left ovarian cyst Procedures US Pelvis Complete Pau Angel MD [address] [facility] [address] [place] [address] Phone: tel: fax: [facility] (All Locations) Referral ID Status Reason Start Date Expiration Date V isits Requested Visits Authorized [id number] Pending Review 10/22/2024 11/21/2025 1 1 DIABETES EDUCATOR Reason for Visit * Reason Comments New Patient * Consultation (Routine) - Closed Specialty Diagnoses / Procedures Referred By Kwame gusman Referred To Contact Gynecology Diagnoses Left ovarian cyst Uterine leiomyoma, unspecified location Sarah Adkins MD [address] [place] [address] Phone: tel: fax: [facility] (All Locations) Referral ID Status Reason Start Date Expiration Date V isits Requested Visits Authorized [id number] Closed Specialty Services Required 09/11/2024 10/11/2025 1 1 Encounter Details Date Type Department Care Team (Late st Contact Info) Description 10/22/2024 2:30 PM RN DIABETES EDUCATOR Office Visit [facility] Obstetrics and Gynecology [address] [facility] 7[address] [place] [address] Pau Angel MD [address] [facility] [address] [place] [address] Left ovarian cyst; Uterine leiomyoma, unspecified location; Adenocarcinoma of rectum (HCC); Cyst of ovary, unspecified laterality Social History Tobacco Use Types Packs/Day Years [...] staff should administer the PHQ-9) 0 08/23/2024 [facility] [place] [facility] - Occupational Stress [...] on file Legal Sex Female 1:22 AM RN DIABETES EDUCATOR Gender Identity Not on file Sexual Orientation Not on file 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 file Not on file Not on file documented as of this encounter Last Filed Vital Signs Vital Sign Reading Time Taken Comments Blood Pressure 155/82 10/22/2024 2:20 PM RN DIABETES EDUCATOR Pulse - - Temperature - - Respiratory Rate - - Oxygen Saturation - - Inhaled Oxygen Concentration - - Weight 77.1 kg (170 lb) 10/22/2024 2:20 PM RN DIABETES EDUCATOR Height 162.6 cm (5' 4 ) 10/22/2024 2:20 PM RN DIABETES EDUCATOR Body Mass Index 29.18 10/22/2024 2:20 PM RN DIABETES EDUCATOR documented in this encounter Functional Status * Audit-C Score Answer Date of Assessment Author 2 10/22/2024 2:29 PM RN DIABETES EDUCATOR Cal Jones RMA * Question Answer Date of Assessment Author Q1: How often do you have a drink containing alcohol? 2-4 times a month 10/22/2024 2:29 PM RN DIABETES EDUCATOR Angela Jones R MA Q2: How many drinks containing alcohol do you have on a typical day when you are drinking? 1 or 2 10/22/2024 2:29 PM RN DIABETES EDUCATOR Angela Jones R MA Q3: How often do you have six or more drinks on one occasion? Never 10/22/2024 2:29 PM RN DIABETES EDUCATOR Angela Jones R MA documented as of this encounter Progress Notes * Pau Angel MD - 10/22/2024 2:30 PM CST [facility] Gynecology Visit Subjective/Objective Emmanuelle Tena is a 79 y.o. 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 She denies having gynecologic concerns today, though she is nervous about upcoming surgery for new diagnosis of rectal cancer. She has been seen by an OBGYN provider recently at [facility] (within the last year). Records in Care Everywhere. I have reviewed: allergies, current medications, past family history, past medical history, past social history, past surgical history, and problem list Obstetric History: OB History Para Term AB Living 2 2 2 2 SAB IAB Ectopic Multiple Live Births 2 # Outcome Date GA Lbr Matteo/2nd Weight Sex Type Anes PTL Lv 2 Term 1969 3.969 kg (8 lb 12 oz) F Vaginal KERWIN 1 Term 1965 3.799 kg (8 lb 6 oz) F Vaginal KERWIN Gynecologic History: Menarche Age: 14 years Postmenopausal Hx of cystectomy via Pfannenstiel Period Pattern: None Gender of sexual partners: Men Not currently sexually active Dyspareunia: no Post-coital bleeding: no Postmenopausal bleeding: no Sexually Transmitted Infection History: None Sexual Assault: No Date of Last Pap if Known: unk per pt / collected 05/31/2024 per record HPV Vaccine: no Mammogram scheduled tomorrow Has had DEXA scan BP 155/82 (BP Location: Left arm, Patient Position: Sitting) Ht 162.6 cm (5' 4 ) Wt 170 lb (77.1 kg) BMI 29.18 kg/m?? Physical Exam Constitutional: Appearance: Normal appearance. She is well-groomed and overweight. HENT: Head: Normocephalic and atraumatic. Mouth/Throat: Mouth: Mucous membranes are moist. Eyes: Extraocular Movements: Extraocular movements intact. Pulmonary: Effort: Pulmonary effort is normal. Musculoskeletal: General: Normal range of motion. Cervical back: Normal range of motion. Neurological: General: No focal deficit present. Mental Status: She is alert. Psychiatric: Mood and Affect: Mood normal. Behavior: Behavior normal. Thought Content: Thought content normal. 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, exercises regularly, , feels safe at home Assessment/Plan Diagnoses and all orders for this visit: Left ovarian cyst Assessment & Plan: Cyst of the left ovary seen on [...] review pelvic US images at next visit Orders: - Ambulatory referral to Gynecology - US Pelvis Complete; Future Uterine leiomyoma, unspecified location - Ambulatory referral to Gynecology Adenocarcinoma of rectum (HCC) - Ambulatory referral to Gynecology Cyst of ovary, unspecified laterality - Ambulatory referral to Gynecology RTC for pelvic US and follow up visit Pau Angel MD 10/22/2024 DIABETES EDUCATOR documented in this encounter Miscellaneous Notes * Assessment & Plan Note - Pau Angel MD - 10/22/2024 3:03 PM RN DIABETES EDUCATOR Associated Problem(s): Left ovarian cyst Cyst of the left ovary seen on [...] review pelvic US images at next visit DIABETES EDUCATOR documented in this encounter Plan of Treatment Upcoming Encounters Date Type Department Care Team (Latest Contact Info) Description 11/09/2024 7:15 AM RN DIABETES EDUCATOR Hospital Encounter [facility] Operating Room [address] [address] Jak Bobo MD [phone] [place] [address] 11/09/2024 7:15 AM RN DIABETES EDUCATOR - 11/09/2024 9:15 AM RN DIABETES EDUCATOR Surgery [facility] Operating Room [address] [address] Jak Bobo MD [phone] [place] [address] ENDOSCOPIC TRANSANAL MICROSURGERY Scheduled Orders Name Type Priority Associated Diagnoses Orde r Schedule US Pelvis Complete Imaging Schedule Rout ine, Read Routine (OP Routine) Left ovarian cyst Expected: 10/22/2024, Expires: 10/22/2025 Scheduled Procedures Name Priority Associated Diagnoses Date/Ti wv ENDOSCOPIC TRANSANAL MICROSURGERY Rectal cancer (CMS/HCC) (HCC) 11/09/2024 7:15 AM RN DIABETES EDUCATOR documented as of this encounter Visit Diagnoses Diagnosis Rectal cancer (CMS/HCC) (HCC)- Primary Malignant neoplasm of rectum Left ovarian cyst Other and unspecified ovarian cyst Uterine leiomyoma, unspecified location Adenocarcinoma of rectum (HCC) Cyst of ovary, unspecified laterality Rectal cancer (CMS/HCC) (HCC) Malignant neoplasm of rectum documented in this encounter Orders Outpatient Referral Count Last Ordered Date Fir st Ordered Date AMB REFERRAL TO GYNECOLOGY 2 10/22/2024 documented in this encounter Care Teams Director Talent Acquisition Relationship Specialty Start Date End Date Pete Molina MD [address] [place] [address] PCP - General Family Medicine 11/09/21 Sergio Eastman MD [address] [place] [address] Consulting Physician Neurology 11/09/21 Daylin Wheatley MD [address] [place] [address] Surgeon Ophthalmology 11/09/21 Tereso Crocker MD [address] [place] [address] Referring Physician Family Medicine 11/09/21 Travis Choudhary MD [address] [facility] [address] [place] [address] Referring Physician Gastroenterology 11/09/21 Gavino Dempsey MD [address] [facility] [address] [place] [address] Referring Physician Rheumatology 11/10/22 Sarah Adkins MD [address] [place] [address] Consulting Physician Medical Oncology 08/10/24 Jak Bobo MD [address] [facility] [phone] [place] [address] Surgeon Colon and Rectal Surgery 09/19/24 documented as of this encounter
--- OUTSIDE RECORDS SUMMARY | 2024-10-23 14:04 | XMS_ITS ---
Author Organization [facility] Address [address] [place] [address] Care Team Providers Care Loan Examiner Name Role Phone Pete Molina MD Primary Care Provider Sergio Eastman MD Unavailable Daylin Wheatley MD Unavailable [phone] Tereso Crocker MD Unavailable [phone] Travis Choudhary MD Unavailable [phone] Gavino Dempsey MD Unavailable Sarah Adkins MD Unavailable Jak Bobo MD Unavailable Active Problems Problem Noted Date Diagnosed Date Left ovarian cyst 10/22/2024 Assessment & Plan (10/22/2024 3:03 PM CLINICAL APPLICATIONS SPECIALIST): Cyst of the left ovary seen on [...] 08/23/20 Assessment & Plan (08/23/2024 12:24 PM CLINICAL APPLICATIONS SPECIALIST): Uses flonase daily Borderline intraocular pressure (IOP) Ou Slight thin CCT OD, slightly thick left eye (OS) Normal RNFL both eyes (OU) Fu 6 months Boateng visual field (HVF) and intraocular pressure (IOP) check Dermatochalasis of both upper eyelids 08/23/2024 Assessment & Plan (08/23/2024 12:25 PM CLINICAL APPLICATIONS SPECIALIST): Pt requests consult for poss blepharoplasty. Refer [...] 15mg daily. Is hoping to have her warp knitter taper this down further. - will contineu [...] 03/2022 Assessment & Plan (11/11/2021 12:33 PM CLINICAL APPLICATIONS SPECIALIST): A initial Medicare Annual Wellness Visit has been performed today. Emmanuelle Tena is not up to date on screening [...] change. Assessment & Plan (11/07/2020 1:52 PM CLINICAL APPLICATIONS SPECIALIST): 75 year old with atypical onset neuropathy [...] change Assessment & Plan (11/07/2020 1:45 PM CLINICAL APPLICATIONS SPECIALIST): has noticed mild resting tremor in right [...] 10/14/2020 Assessment & Plan (10/14/2020 11:32 AM CLINICAL APPLICATIONS SPECIALIST): Uses afts at bedtime (qhs). Occasionally uses during the day. Add hot compresses. Pseudophakia of both eyes 06/05/2019 Overview (10/14/2020): Phaco/ intraocular lens (IOL) both eyes (OU)- Negro 06/05/19- YAG cap right eye (OD)- LMT 08/14/19- YAG cap left eye (OS)- LMT Assessment & Plan (08/23/2024 12:26 PM CLINICAL APPLICATIONS SPECIALIST): 06/05/19- YAG cap right eye (OD)- LMT 08/14/19- YAG cap left eye (OS)- LMT Well healed after YAG cap both eyes (OU). Implants in good position. Vision stable. Assessment & Plan (10/14/2020 11:33 AM CLINICAL APPLICATIONS SPECIALIST): From Americo Christianson MD Initially happy but has gotten worse with PCO changes 06/05/19- YAG cap right eye (OD)- LMT 08/14/19- YAG cap left eye (OS)- LMT Well healed after YAG cap both eyes (OU). Implants in good position. Vision stable. Explained OTC readers are typical after regular cataract extraction (CE) both eyes (OU) with aim plano. Assessment & Plan (10/12/2019 10:53 AM CLINICAL APPLICATIONS SPECIALIST): Well healed s/p yag cap OU. Return to routine follow up care annually. 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 - check CBC and ferritin today Assessment & Plan (12/23/2021 1:39 PM CDT): requip 1 mg at bedtime Assessment & Plan (11/07/2020 1:46 PM CLINICAL APPLICATIONS SPECIALIST): I would agree she reports symptoms consistent with RLS that have been long- standing and well controlled with activity and requip 1 mg at bedtime for years Offered ferritin since it is not clear this has been checked and she has a history of iron deficiency in setting of GI bleeding from her colitis. Continue current management otherwise Primary hypertension Overview (05/12/2022): Hypertension Current Treatment and Therapy Plans No current plan information found. Past Treatment and Therapy Plans No past plan information found. Lifetime Dose Tracking * Chemical Lifetime Dose Automatic Entry Manual Entr y Fluoro Time 0.8 minutes 0.8 minutes 0 minutes Air kerma at the reference point (Ka,r) 3.6 mGy 3 .6 mGy 0 mGy DLP 949 mGycm 949 mGycm 0 mGycm Resolved Problems Problem Noted Date Diagnosed Date Resolved Date Bilateral posterior capsular opacification 06/05/2019 10/14/2020 Overview (06/05/2019): Americo christianson- Adrian- ANDRES Assessment & Plan (10/14/2020 10:30 AM CLINICAL APPLICATIONS SPECIALIST): Pt happy after YAG right eye (OD). [...] office. Assessment & Plan (08/16/2019 5:47 PM CLINICAL APPLICATIONS SPECIALIST): Pt happy after YAG right eye (OD). [...]
--- OUTSIDE RECORDS SUMMARY | 2024-10-23 14:04 | XMS_ITS | Referral Summary ---
Author Organization [facility] Address [address] [place] [address] Care Team Providers Care Warehouse Technician Name Role Phone Pete Molina MD Primary Care Provider Source Comments [facility],non-owned Affiliates and Associated Physician Practices is amultiple site organization consisting of ambulatory clinics and hospital sitesin [place], [place], [place] and [place]. This disclosure is being madepursuant to the Care Everywhere program and may not contain all information available regarding this patient. Last updated 18.[facility] Encounters Date Type Department Care Team Description 09/13/2024 9:40 AM TRANSIT MECHANIC Office Visit [facility] Medical [facility] - Rheumatology [address], [address] [place] [id number] Gavino Dempsey DO Greater trochanteric bursitis of right hip (Primary Dx); Greater trochanteric bursitis of left hip 09/04/2024 Travel 08/01/2024 Travel from Last 3 Months Allergies Active Allergy [...] 11/11/2022 Assessment & Plan (11/11/2022 11:40 AM TRANSIT MECHANIC): DEXA performed at [facility] in [place], [place] on 11/02/2022 indicated a left femoral [...] ED). Last dose taken 4 days ago. Immunizations Name Administration Dates Next Due INFLUENZA VACCINE 06/21/2023 Social History Tobacco Use Types Packs/Day Years [...] Comments Blood Pressure 138/78 09/13/2024 9:36 AM TRANSIT MECHANIC Pulse 64 09/13/2024 9:36 AM TRANSIT MECHANIC Temperature 36.1 C (97 F) 09/13/2024 9:36 AM TRANSIT MECHANIC Respiratory Rate 16 09/13/2024 9:36 AM TRANSIT MECHANIC Oxygen Saturation 98% 09/13/2024 9:36 AM TRANSIT MECHANIC Inhaled Oxygen Concentration - - Weight 75.1 kg (165 lb 8 oz) 08/01/2024 9:26 AM TRANSIT MECHANIC Height 162.6 cm (5' 4 ) 08/01/2024 9:26 AM TRANSIT MECHANIC Body Mass Index 28.41 08/01/2024 9:26 AM TRANSIT MECHANIC Plan of Treatment Not on file Procedures Procedure Name Priority Date/Time Associated Diagnosis Comments DEXA BONE DENSITY AXIAL SKELETON Routine 11/02/2022 from Last 3 Months or Most Recently Relevant to Health Maintenance Results * DEXA BONE DENSITY AXIAL SKELETON (11/02/2022) Anatomical Region Laterality Modality Other Gavino Dempsey DO DEXA ORDERABLES from Last 3 Months or Most Recently Relevant to Health Maintenance EMMANUELLE TENA Personal/Family Other [address] [facility] [place] [address] Emmanuelle Tena [facility] Self [address] [facility] [place] [address] Emmanuelle Tena [facility] Self [address] [facility] [place] [address] Emmanuelle Tena Personal/Family Self 1945 VERÓNICA TENA Personal/Family Spouse 1945 Care Teams Warehouse Technician Relationship Specialty Start Date End Date Pete Molina MD [address] [place] [address] PCP - General Family Medicine 02/02/23
--- OUTSIDE RECORDS SUMMARY | 2024-10-23 14:04 | XMS_ITS ---
Author Organization [facility] Address [address] [address] Care Team Providers Care Beading Sawyer Name Role Phone Pete Molina Primary Care Provider IZAIAH Nash Unavailable [phone] Medications Medication SIG (Take, Route, Frequency, Duration) Notes Start Date End Date Status Chlorthalidone 25 MG Oral for 90 Days Active Anoro Ellipta 62.5-25 MCG/ACT Inhalation for 90 Days Activ e Levoxyl 88 MCG Oral for 90 Days Active Gabapentin 300 MG 1 capsule Orally Onc e a day Active Esther Active Vitamin B 12 Active rOPINIRole HCl 1 MG Oral for 90 Days Active Sertraline HCl 50 MG 1 tablet Orally Onc e a day Active Flonase Active Vitamin D Active Naproxen 500 MG TAKE 1 TABLET BY KEYUR TH TWICE A DAY WITH MEALS Oral for 15 Days Active Ciprofloxacin HCl 500 MG TAKE 1 TABLET B Y MOUTH TWICE A DAY FOR 7 DAYS Oral for 7 Days Active Encounters Encounter Location Date Provider Diagnosis [facility] [address] [address] 05/01/2024 IZAIAH COTTO Plan Of Treatment No Information Progress Notes * Elisa TENAOB:1945 ( 79 yo F)Acc No.[id number]:05/01/2024 Patient: Chantel COON Provider: Juan Diego Cotto MD :1945 A ge:79 Y S ex:Female Date:05/01/2024 Address:[address] [place], [place] [id number] Pcp:Pete Molina Subjective: * Chief Complaints: * * Medical History: * Medications: T aking Vitamin B 12 , Taking Vitamin D , Taking Flonase , Taking Sertraline HCl 50 MG Tablet 1 tablet Orally Once a day , Taking Esther , Taking Gabapentin 300 MG Capsule 1 capsule Orally Once a day , Taking Levoxyl 88 MCG Tablet Oral , Taking Anoro Ellipta 62.5-25 MCG/ACT Aerosol Powder Breath Activated Inhalation , Taking Chlorthalidone 25 MG Tablet Oral , Taking Ciprofloxacin HCl 500 MG Tablet TAKE 1 TABLET BY MOUTH TWICE A DAY FOR 7 DAYS Oral , Taking Naproxen 500 MG Tablet TAKE 1 TABLET BY MOUTH TWICE A DAY WITH MEALS Oral , Taking rOPINIRole HCl 1 MG Tablet Oral Objective: * Vitals: Assessment: Plan: * Treatment: * * Electronic signature of SAKSHI COTTO MD on 10/23/2024 at 02:01 PM SHANK TURNER Sign off status: Pending * Provider: Juan Diego Cotto MD Date: 0 05/01/2024 Generated for Alayna hernández/Urszula/Sherita on: 0 10/23/2024 02:01 PM SHANK TURNER
== END 2024-10-23 13:54 | disposition home or self-care (01) ==
PROVIDERS: Visit Provider Family Medicine
DX: Z12.31 Encounter for screening mammogram for malignant neoplasm of breast (principal)
CPT/HCPCS: 77063; 77067

== ENCOUNTER 2025-06-04 11:53 | Outpatient (CLI) | payer MEDICARE, SELFPAY ==
--- OUTSIDE RECORDS SUMMARY | 2024-05-01 02:15 | XMS_ITS ---
Author Organization [facility] Address [address] [place] [address] Care Team Providers Care Cemetery Workers Supervisor Name Role Phone Pete Molina Primary Care Provider IZAIAH Nash Unavailable [phone] Medications Medication SIG (Take, Route, Frequency, Duration) Notes Start Date End Date Status Chlorthalidone 25 MG Tablet Oral; Duration: 90 Days Active Anoro Ellipta 62.5-25 MCG/ACT Aerosol Powder Breath Activated Inhalation; Duration: 90 Days Active Levoxyl 88 MCG Tablet Oral; Duration: 90 Days Active Gabapentin 300 MG Capsule 1 capsule Oral ly Once a day Active Esther Active Vitamin B 12 Active rOPINIRole HCl 1 MG Tablet Oral; Duration: 90 Days Active Sertraline HCl 50 MG Tablet 1 tablet Ora lly Once a day Active Flonase Active Vitamin D Active Naproxen 500 MG Tablet TAKE 1 TABLET BY MOUTH TWICE A DAY WITH MEALS Oral; Duration: 15 Days Active Ciprofloxacin HCl 500 MG Tablet TAKE 1 TABLET BY MOUTH TWICE A DAY FOR 7 DAYS Oral; Duration: 7 Days Active Encounters Encounter Location Date Provider Diagnosis [facility] [place] [address] 05/01/2024 IZAIAH COTTO Plan Of Treatment No Information Progress Notes * Elisa TENAOB:1945 ( 80 yo F)Acc No.[id number]:05/01/2024 Patient: Chantel Cordon Provider: Juan Diego Cotto MD :1945 A ge:79 Y S ex:Female Date:05/01/2024 Address:[address] [place], [place] [address]s [facility] Pcp:Pete Mloina Subjective: * Chief Complaints: * Medications: T akingVitamin B 12 Vitamin D Flonase Sertraline HCl 50 MG Tablet 1 tablet Orally Once a day Esther Gabapentin 300 MG Capsule 1 capsule Orally Once a day Levoxyl 88 MCG Tablet Oral Anoro Ellipta 62.5-25 MCG/ACT Aerosol Powder Breath Activated Inhalation Chlorthalidone 25 MG Tablet Oral Ciprofloxacin HCl 500 MG Tablet TAKE 1 TABLET BY MOUTH TWICE A DAY FOR 7 DAYS Oral Naproxen 500 MG Tablet TAKE 1 TABLET BY MOUTH TWICE A DAY WITH MEALS Oral rOPINIRole HCl 1 MG Tablet Oral Taking Vitamin B 12 Taking Vitamin D Taking Flonase Taking Sertraline HCl 50 MG Tablet 1 tablet Orally Once a day Taking Esther Taking Gabapentin 300 MG Capsule 1 capsule Orally Once a day Taking Levoxyl 88 MCG Tablet Oral Taking Anoro Ellipta 62.5-25 MCG/ACT Aerosol Powder Breath Activated Inhalation Taking Chlorthalidone 25 MG Tablet Oral Taking Ciprofloxacin HCl 500 MG Tablet TAKE 1 TABLET BY MOUTH TWICE A DAY FOR 7 DAYS Oral Taking Naproxen 500 MG Tablet TAKE 1 TABLET BY MOUTH TWICE A DAY WITH MEALS Oral Taking rOPINIRole HCl 1 MG Tablet Oral * Electronic signature of SAKSHI COTTO MD on 06/04/2025 at 12:01 PM CDT Sign off status: Pending * Provider: Juan Diego Cotto MD Date: 05/01/2024 Generated for Alayna hernández/Urszula/Sherita on: 06/04/2025 12:01 PM CDT
--- NOTE | ~2025-06-04 | DEXA_ITS ---
Bone Density Report Name: VERÓNICA CRUZ Age: 80 Sex: Female Ethnicity: White Date of : 1945 Indication: postmenopausal; screening for osteoporosis; parental hip fracture; height loss; inflammatory bowel disease; history of glucocorticoids; Referring Provider: ZOEY, KATIE Titus Study: Bone densitometry was performed. Exam Date: June 04, 2025 Accession number: [id number] Bone Density: Region BMD T-score Z-score Classification AP Spine(L1, L2, L3) 0.780 -2.2 0.4 Osteopenia Femoral Neck (Left) 0.683 -1.5 0.7 Osteopenia Total Hip (Left) 0.777 -1.4 0.6 Osteopenia Femoral Neck (Right) 0.700 -1.3 0.9 Osteopenia Total Hip (Right) 0.787 -1.3 0.7 Osteopenia Femoral Neck Mean 0.692 -1.4 0.8 Osteopenia Total Hip Mean 0.782 -1.3 0.6 Osteopenia World Health Organization criteria for BMD impression classify patients as: Normal (T-score at or above -1.0), Osteopenia (T-score between -1.0 and -2.5), or Osteoporosis (T-score at or below -2.5). 10-year Fracture Risk(1): Major Osteoporotic Fracture 32% Hip Fracture 19% Reported Risk Factors: [place] (), Neck BMD=0.683, BMI=29.9, parental fracture, glucocorticoids (1) FRAX(R) Version 3.08. Fracture probability calculated for an untreated patient. Fracture probability may be lower if the patient has received treatment. Clinical Information Provided by Patient: Parent has had a hip fracture Has taken Glucocorticoids Has used the following medications: Vitamin D, Calcium Has the following medical conditions: Inflammatory bowel diseases Patient maximum height was 64 Menopause Age: 52 No regular weight bearing exercise Drinks caffeinated beverages Onset of menses at age 14 Number of children 2 Impression: The patient has low bone mass, based on the Total Spine T-score. The patient has risk factors, including: parental hip fracture, history of glucocorticoid therapy. Discussion: BONE DENSITY IS LOW AT ONE OR MORE SKELETAL SITES. This patient's lowest T-score is low at one or more skeletal sites. It meets the World Health Organization's (WHO) criteria for ?low bone mass? (T-score between -1.0 and -2.5). The patient's 10-year risk of fracture as calculated by FRAX is less than the threshold where pharmacological therapy is recommended by the National Osteoporosis Foundation (NOF). However, all treatment decisions require clinical judgment and consideration of individual patient factors, including patient preferences, comorbidities, previous drug use, risk factors not captured in the FRAX model (e.g., frailty, falls, vitamin D deficiency, increased bone turnover, interval significant decline in bone density) and possible under or overestimation of fracture risk by FRAX. The patient should follow a healthful lifestyle (good nutrition with adequate calcium and vitamin D, and appropriate weight-bearing exercise). Follow-Up: Consider repeating this study in 2 to 3 years to reassess this patient's status, or sooner if there is some new clinical indication. Reported by: SHAKIRA on 06/04/2025 12:20:00 PM. Reviewed, dictated and finalized at location A.
--- OUTSIDE RECORDS SUMMARY | 2025-06-04 12:01 | XMS_ITS | Encounter Summary ---
Author Organization [facility] Healthcare Address [address] [place] [address] Care Team Providers Care Engine Cleaner Name Role Phone Pete Molina MD Primary Care Provider [phone] Sergio Eastman MD Unavailable [phone] Daylin Wheatley MD Unavailable [phone] Tereso Crocker MD Unavailable [phone] Travis Choudhary MD Unavailable [phone] Gavino Dempsey MD Unavailable Sarah Adkins MD Unavailable [phone] Jak Bobo MD Unavailable [phone] Encounter Details Date Type Department Care Team (Late st Contact Info) Description 06/03/2025 Orders Only [facility] Medical Group Primary Care at [address] [address] Pete Molina MD [address] [place] [address] [address] [place] [address] Social History Tobacco Use Types Packs/Day Years Used Date Smoking Tobacco: Never Passive Smoke Exposure: Never Smokeless Tobacco: Never Alcohol Use Standard Drinks/Week Comments No 0 (1 standard drink = 0.6 oz pur e alcohol) AUDIT-C Answer Date Recorded Q1: How often do you have a drink containing alc ohol? 2-4 times a month 03/14/2025 Q2: How many drinks containi ng alcohol do you have on a typical day when you are drinking? 1 or 2 03/14/2025 Q3: How often do you have si x or more drinks on one occasion? Never 03/14/2025 PHQ-2 Answer Date Recorded PHQ-2 Total Score (If total score is 3 or more points, staff should administer the PHQ-9) 0 12/06/2024 [facility] - Occupational Stress [...] making you feel afraid or unsafe? Denies 03/14/2025 Education Answer Date Recorded What is the highest level of school you have completed or the highest degree you have received? 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 Not on file Not on file documented as of this encounter Plan of Treatment Pending Results Name Type Priority Associated Diagnoses Date /Time Osmolality, blood Lab Routine 025 4:25 PM CDT documented as of this encounter Procedures Procedure Name Priority Date/Time Associated Diagnosis Comments BASIC METABOLIC PANEL Routine 06/03/2025 4:25 PM CDT documented in this encounter Results * (ABNORMAL) Basic metabolic panel (06/03/2025 4:25 PM CDT) Glucose 100(H) 70 - 99 mg/dL [facility] - 01 BUN 15 8 - 27 mg/dL [facility] - 01 Creatinine, Serum 0.65 0.57 - 1.00 mg/dL [facility] - 01 eGFR 90 >59 mL/min/1.7 3 [facility] - 01 BUN/creat ratio 23 12 - 28 [facility] - 01 Sodium 128(L) 134 - 144 mmol/L [facility] - 01 Potassium, sr 3.6 3.5 - 5.2 mmol/L [facility] - 01 Chloride 90(L) 96 - 106 mmol/L [facility] - 01 CO2 23 20 - 29 mmol/L [facility] - 01 Calcium 9.5 8.7 - 10.3 mg/dL [facility] - 01 06/03/2025 4:25 PM CDT 06/03/2025 Narrative [facility] - 06/04/2025 7:09 AM CDT Performed at: - [facility] [place] [id number] Aquatic Habitat Biologist: Ranjit Lucero PhD, Phone: [phone] us Pete Molina MD LAB BLOOD ORDERABLES Final Result Performing Organization Address City/State/[facility] Co de Phone Number [facility] - 01 documented in this encounter Visit Diagnoses Not on filedocumented in this encounter Care Teams Engine Cleaner Relationship Specialty Start Date End Date Pete Molina MD [address] [place] [address] PCP - General Family Medicine 11/09/21 Sergio Eastman MD [address] [place] [address] Consulting Physician Neurology 11/09/21 Daylin Wheatley MD [address] [place] [address] Surgeon Ophthalmology 11/09/21 Tereso Crocker MD [address] [place] [address] Referring Physician Family Medicine 11/09/21 Travis Choudhary MD [address] [facility] [address] [place] [address] Referring Physician Gastroenterology 11/09/21 Gavino Dempsey MD [address] [place] [address] Referring Physician Rheumatology 11/10/22 Sarah Adkins MD [address] [place] [address] Consulting Physician Medical Oncology 08/10/24 Jak Bobo MD [address] [facility] [phone] [place] [address] Surgeon Colon and Rectal Surgery 09/19/24 documented as of this encounter
--- OUTSIDE RECORDS SUMMARY | 2025-06-04 12:01 | XMS_ITS | Patient Health Record ---
Author Organization [facility] Address [address] [place] [address] Care Team Providers Care Slot Editor Name Role Phone Pete Molina Primary Care Provider Unavailabl e Allergies Allergen (clinical drug ingredient) Drug/Non Drug [...] MG Tablet Oral; Duration: 90 Days Active Naproxen 500 MG Tablet TAKE 1 TABLET BY MOUTH TWICE A DAY WITH MEALS Oral; Duration: 15 Days Active Ciprofloxacin HCl 500 MG Tablet TAKE 1 TABLET BY MOUTH TWICE A DAY FOR 7 DAYS Oral; Duration: 7 Days Active Chlorthalidone 25 MG Tablet Oral; Duration: 90 Days Active Anoro Ellipta 62.5-25 MCG/ACT Aerosol Powder Breath Activated Inhalation; Duration: 90 Days Active Levoxyl 88 MCG Tablet Oral; Duration: 90 Days Active Gabapentin 300 MG Capsule 1 capsule Oral ly Once a day Active Esther Active Sertraline HCl 50 MG Tablet 1 tablet Ora lly Once a day Active Flonase Active Vitamin D Active Social History Tobacco Use: Social History Observation Description Date Details (start date - stop date) Never Smoker NA - NA Social History Drugs/Alcohol: Social Info Question Answer Notes Alcohol Screen (Audit-C) Did you have a drink containing alcohol in the past year? Yes How often did you have a drink containing alcohol in the past year? 2 to 4 times a month (2 points) How often did you have 6 or more drinks on one occasion in the past year? Less than monthly (1 point) Points 3 Interpretation Positive Drugs Have you used drugs other than those for medical reasons in the past 12 months? No Caffeine Intake: 1-2 cups per day Tobacco Use: Social Info Question Answer Notes Tobacco Use/Smoking Are you a nonsmoker Additional Details Category Social Info Options Details Drugs/Alcohol: Do you smoke marijuana? De nies Do you drink alcohol? Yes Problems Problem Type SNOMED Code ICD Code Onset Dates Problem Status W/U Status Risk Notes Problem Pain co-occurrent and due to varicose veins of bilateral legs (0671007838016 9100) Varicose veins of bilateral lower extremities with pain (I83.813) Active confirmed Plan Of Treatment No Information Insurance Providers Payer Name Payer Address Payer Phone Subscriber Number Group Number Insured Name Patient Relationship to Insured Coverage Start Date Coverage End Date [employer] Medicare [address] [place] [phone] [id number] Chantel Tena Self - patient is the insured Medical (General) History Medical History History ICD Code neuropathy,DVT
--- OUTSIDE RECORDS SUMMARY | 2025-06-04 12:01 | XMS_ITS | Encounter Summary ---
Author Organization [facility] Healthcare Address [address] [place] [address] Care Team Providers Care Employee Relations Specialist Name Role Phone Pete Molina MD Primary Care Provider [phone] Sergio Eastman MD Unavailable [phone] Daylin Wheatley MD Unavailable [phone] Tereso Crocker MD Unavailable [phone] Travis Choudhary MD Unavailable [phone] Gavino Dempsey MD Unavailable Sarah Adkins MD Unavailable [phone] Jak Bobo MD Unavailable Reason for Visit * Reason Onset Date Comments Medical Question/Miscellaneous 06/03/2025 Encounter Details Date Type Department Care Team (Late st Contact Info) Description 06/03/2025 Telephone [facility] Primary Care at [address] [address] Pete Molina MD [address] [place] [address] Medical Question/Miscellaneous Social History Tobacco Use Types Packs/Day Years [...] staff should administer the PHQ-9) 0 12/06/2024 [facility] - Occupational Stress [...] on file Legal Sex Female 1:22 AM WORKERS COMPENSATION LEGAL SECRETARY Gender Identity Not on file Sexual Orientation Not on file 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 Explanation: All Pages Ok Pages Sent: 3 Connect Time: 1 minutes, 28 seconds Transmit Time: 06/03/2025 14:27 Transfer Rate: [id number] Status Code: 0000 Retry Count: 0 Job Id: [id number] Unique Id: [id number] Fax Line: 43 Fax Reinsurance Claim Analyst: [id number] * Telephone Encounter - Clau Way - 06/03/2025 2:22 PM CDT Medical Question/Miscellaneous Caller???s Concern: called to see if the pt had lab orders. Pot Builder saw them. Pot Builder called back line to get them resent and warm trasnferred Does message need to be routed? No documented in this encounter Plan of Treatment Not on file documented as of this encounter Visit Diagnoses Not on filedocumented in this encounter Care Teams Employee Relations Specialist Relationship Specialty Start Date End Date Pete Molina MD [address] [place] [address] PCP - General Family Medicine 11/09/21 Sergio Eastman MD [address] [place] [address] Consulting Physician Neurology 11/09/21 Daylin Wheatley MD [address] [place] [address] Surgeon Ophthalmology 11/09/21 Tereso Crocker MD [address] [place] [address] Referring Physician Family Medicine 11/09/21 Travis Choudhary MD [address] [place] [address] Referring Physician Gastroenterology 11/09/21 Gavino Dempsey MD [address] [place] [address] Referring Physician Rheumatology 11/10/22 Sarah Adkins MD [address] [place] [address] Consulting Physician Medical Oncology 08/10/24 Jak Bobo MD [address] [facility] [phone] [place] [address] Surgeon Colon and Rectal Surgery 09/19/24 documented as of this encounter
--- OUTSIDE RECORDS SUMMARY | 2025-06-04 12:01 | XMS_ITS ---
Author Organization [facility] Address [address] [place] [address] Care Team Providers Care Hematology Oncology Consultant Name Role Phone Pete Molina MD Primary Care Provider [phone] Sergio Eastman MD Unavailable [phone] Daylin Wheatley MD Unavailable [phone] Tereso Crocker MD Unavailable [phone] Travis Choudhary MD Unavailable [phone] Gavino Dempsey MD Unavailable Sarah Adkins MD Unavailable [phone] Jak Bobo MD Unavailable Active Problems Problem Noted Date Diagnosed Date Moderate major depression 12/06/2024 Decreased peripheral vision, bilateral 5 Myogenic ptosis of eyelid of both eyes 5 Left ovarian cyst 10/22/2024 Assessment & Plan (01/03/2025 11:33 AM CDT): Cyst of the left ovary seen on MRI as part of monitoring for her new rectal cancer dignosis Reviewed MRI findings on 08/2024 simple appearing 4 cm NATALIE cyst, ORADS 2-3 TVUS performed and reviewed today - no adnexa masses or cysts, no free fluid Reassurance provided No need for additional surveillance imaging at this time Encouraged pt to reach out with a change in symptoms or concerns Assessment & Plan (10/22/2024 3:03 PM COFFIN MAKER): Cyst of the left ovary seen on [...] US images at next visit Rectal cancer 09/19/2024 Glaucoma suspect of both eyes [H40.003] 08/23/20 Assessment & Plan (08/23/2024 12:24 PM COFFIN MAKER): Uses flonase daily Borderline intraocular pressure (IOP) Ou Slight thin CCT OD, slightly thick left eye (OS) Normal RNFL both eyes (OU) Fu 6 months Boateng visual field (HVF) and intraocular pressure (IOP) check Dermatochalasis of both upper eyelids 08/23/2024 Assessment & Plan (08/23/2024 12:25 PM COFFIN MAKER): Pt requests consult for poss blepharoplasty. Refer [...] Spiriva trial Hypercholesterolemia 11/10/2022 Polymyalgia rheumatica syndrome 10/12/2022 Overview (10/21/2022): Likely onset late 07/2022 with recent rapid and complete response when prescribed prednisone 20 mg/d x 7d (from ED). Last dose taken 4 days ago. Assessment & Plan (05/24/2023 3:45 PM CDT): Pt is a currently taking prednisone 15mg daily. Is hoping to have her lcac radar operator/navigator taper this down further. - will contineu [...] 03/2022 Assessment & Plan (11/11/2021 12:33 PM COFFIN MAKER): A initial Medicare Annual Wellness Visit has [...] change. 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 Occasionally uses during the day. Add hot compresses. Pseudophakia of both eyes 06/05/2019 Overview (10/14/2020): Phaco/ intraocular lens (IOL) both eyes (OU)- Negro 06/05/19- YAG cap right eye (OD)- LMT 08/14/19- YAG cap left eye (OS)- LMT Assessment & Plan (08/23/2024 12:26 PM COFFIN MAKER): 06/05/19- YAG cap right eye (OD)- LMT 08/14/19- YAG cap left eye (OS)- LMT Well healed after YAG cap both eyes (OU). Implants in good position. Vision stable. Assessment & Plan (10/14/2020 11:33 AM COFFIN MAKER): From Americo Christianson MD Initially happy but has gotten worse with PCO changes 06/05/19- YAG cap right eye (OD)- LMT 08/14/19- YAG cap left eye (OS)- LMT Well healed after YAG cap both eyes (OU). Implants in good position. Vision stable. Explained OTC readers are typical after regular cataract extraction (CE) both eyes (OU) with aim plano. Assessment & Plan (10/12/2019 10:53 AM COFFIN MAKER): Well healed s/p yag cap OU. Return to routine follow up care annually. RTC x 1 year for annual exam with LMT or Doman Assessment & Plan (06/05/2019 11:44 AM CDT): [...] bedtime Assessment & Plan (11/07/2020 1:46 PM COFFIN MAKER): I would agree she reports symptoms consistent [...] opacification 06/05/2019 10/14/2020 Overview (06/05/2019): Americo christianson- 2016- AUOOTO Assessment & Plan (10/14/2020 10:30 AM COFFIN MAKER): Pt happy after YAG right eye (OD). [...] office. Assessment & Plan (08/16/2019 5:47 PM COFFIN MAKER): Pt happy after YAG right eye (OD). [...]
--- OUTSIDE RECORDS SUMMARY | 2025-06-04 12:01 | XMS_ITS | Clinical Summary ---
Author Organization [facility] Address [address] [place] [address] Care Team Providers Care Jukebox Routeman Name Role Phone Pete Molina MD Primary Care Provider Serigo Eastman MD Unavailable Daylin Wheatley MD Unavailable [phone] Tereso Crocker MD Unavailable [phone] Travis Choudhary MD Unavailable [phone] Gavino Dempsey MD Unavailable [phone] Sarah Adkins MD Unavailable Jak Bobo MD Unavailable Allergies Active Allergy Reactions Criticality Noted Date Comments Clindamycin Rash Medium 12/21/2023 Erythromycin Rash Medium 08/15/2024 Hydrocodone-Acetaminophen Itching Low 07/29/2017 Latex Rash Medium 05/31/2023 Penicillins Rash Medium 07/29/2017 Sulfa Itching Low 07/29/2017 Sulfacetamide Itching Low 07/29/2017 Tetracycline Rash Medium 07/29/2017 Tramadol Itching Low 07/29/2017 Medications fluticasone propionate (FLONASE) 50 mcg/actuation nasal sprayIndication s:Allergic Conjunctivitis, Allergic Rhinitis Administer 1 spray into each nostril daily before breakfast Active fexofenadine (DELANEY) 180 mg tabletIndicatio ns:Allergic Conjunctivitis, Allergic Rhinitis Take 1 tablet (180 mg total) by mouth daily before breakfast Active cholecalciferol 25 mcg (1,000 unit) tabletIndicatio ns:Vitamin D Deficiency Take 1 tablet (1,000 Units total) by mouth daily before breakfast Active albuterol HFA (Proventil HFA) 90 mcg/actuation inhaler Inhale 2 puffs every 6 (six) hours as needed for wheezing or shortness of breath 6.73 each 4 01/11/20 24 Active Additional Information Patient taking differently:2 puff inhalation Every 6 hours PRN, wheezing, shortness of breath,Last used 09/2024, Indications: Chronic Obstructive Pulmonary Disease, Informant: Self, Reported on 01/24/2025 peg 400-propylene glycol (SYSTANE) 0.4-0.3 % ophthalmic solutionIndicat ions:Dry Eye Administer 1 drop into both eyes as needed (dry / irritated eyes) Active rOPINIRole (REQUIP) 1 mg tablet Take 1 tablet (1 mg total) by mouth nightly 90 tablet 3 11/24/19 25 Active ciclopirox (PENLAC) 8 % solutionIndicat ions: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 Apply 1 Application topically daily 11/25/19 25 Active potassium chloride ER 10 mEq CR capsuleIndicati ons:hypokalemia prevention Take 1 tablet/capsule (10 mEq total) by mouth daily 11/30/19 25 Active gabapentin (NEURONTIN) 100 mg capsuleIndicati ons:Neuropathic Pain Take 1 capsule (100 mg total) by mouth 3 (three) times a day 11/30/19 25 Active vitamin B complex capsuleIndicati ons:Vitamin Deficiency Prevention Take 1 capsule by mouth nightly Also contains vitamin C Active vitamin E acetate (VITAMIN E ORAL)Indication s:supplement Take 1 tablet by mouth nightly Active TURMERIC ORALIndications :supplement Take 1 tablet by mouth nightly Active mesalamine (DELZICOL) 400 mg capsule (with del rel tablets)Indicat ions:Ulcerative colitis without complications, unspecified location (HCC) Take 1 capsule (400 mg total) by mouth 3 (three) times a day 90 capsule 3 12/20/19 25 Active Additional Information Patient taking differently:400 mg oral 3 times daily,Indications: Ulcerative Colitis, Informant: Self, Reported on 03/14/2025 predniSONE (DELTASONE) 5 mg tabletIndicatio ns:Anti-inflamm atory Take 1 tablet (5 mg) by mouth every morning 01/09/20 25 Active acetaminophen ER (TYLENOL) 650 mg 8 hr tabletIndicatio ns:Pain Take 2 tablets (1,300 mg total) by mouth nightly Active chlorthalidone (HYGROTON) 25 mg tabletIndicatio ns:CKD (chronic kidney disease), symptom management only, stage 1 Take 1 tablet (25 mg total) by mouth daily 90 tablet 3 02/08/20 25 026 Active levothyroxine (SYNTHROID) 50 mcg tabletIndicatio ns:Hypothyroidi sm, unspecified type Take 1 tablet (50 mcg total) by mouth mergers and 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 consultant before breakfast 90 tablet 1 02/28/20 25 Active vitamin B complex (Vitamins B Complex) capsule Take 1 capsule by mouth nightly Active turmeric root extract 500 mg capsule Take by mouth Active umeclidinium-vi lanteroL (ANORO ELLIPTA) 62.5-25 mcg/actuation blister with deviceIndicatio ns:Bronchospasm Prevention with COPD Inhale 1 puff daily 60 each 3 03/12/20 25 Active sertraline (ZOLOFT) 50 mg tabletIndicatio ns:Major depressive disorder, recurrent, mild TAKE 1 TABLET DAILY 90 tablet 3 04/19/20 25 Active terbinafine (LamiSIL) 250 mg tablet TAKE 1 TABLET DAILY 30 tablet 05/27/20 25 Active terbinafine (LamiSIL) 250 mg tablet Take 1 tablet (250 mg total) by mouth daily 30 tablet 04/25/20 25 025 Discontinued Active Problems Problem Noted Date Diagnosed Date [...] concerns Assessment & Plan (10/22/2024 3:03 PM REGISTERED NURSE HH CASE MANAGER): Cyst of the left ovary seen on [...] 08/23/20 Assessment & Plan (08/23/2024 12:24 PM REGISTERED NURSE HH CASE MANAGER): Uses flonase daily Borderline intraocular pressure (IOP) Ou Slight thin CCT OD, slightly thick left eye (OS) Normal RNFL both eyes (OU) Fu 6 months Boateng visual field (HVF) and intraocular pressure (IOP) check Dermatochalasis of both upper eyelids 08/23/2024 Assessment & Plan (08/23/2024 12:25 PM REGISTERED NURSE HH CASE MANAGER): Pt requests consult for poss blepharoplasty. Refer [...] 15mg daily. Is hoping to have her digital associate taper this down further. - will contineu [...] 03/2022 Assessment & Plan (11/11/2021 12:33 PM REGISTERED NURSE HH CASE MANAGER): A initial Medicare Annual Wellness Visit has [...] change. 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 Occasionally uses during the day. Add hot compresses. Pseudophakia of both eyes 06/05/2019 Overview (10/14/2020): Phaco/ intraocular lens (IOL) both eyes (OU)- Negro 06/05/19- YAG cap right eye (OD)- LMT 08/14/19- YAG cap left eye (OS)- LMT Assessment & Plan (08/23/2024 12:26 PM REGISTERED NURSE HH CASE MANAGER): 06/05/19- YAG cap right eye (OD)- LMT 08/14/19- YAG cap left eye (OS)- LMT Well healed after YAG cap both eyes (OU). Implants in good position. Vision stable. Assessment & Plan (10/14/2020 11:33 AM REGISTERED NURSE HH CASE MANAGER): From Americo Tom MD Initially happy but has gotten worse with PCO changes 06/05/19- YAG cap right eye (OD)- LMT 08/14/19- YAG cap left eye (OS)- LMT Well healed after YAG cap both eyes (OU). Implants in good position. Vision stable. Explained OTC readers are typical after regular cataract extraction (CE) both eyes (OU) with aim plano. Assessment & Plan (10/12/2019 10:53 AM REGISTERED NURSE HH CASE MANAGER): Well healed s/p yag cap OU. Return [...] bedtime Assessment & Plan (11/07/2020 1:46 PM REGISTERED NURSE HH CASE MANAGER): I would agree she reports symptoms consistent [...] AUOOTO Assessment & Plan (10/14/2020 10:30 AM REGISTERED NURSE HH CASE MANAGER): Pt happy after YAG right eye (OD). [...] office. Assessment & Plan (08/16/2019 5:47 PM REGISTERED NURSE HH CASE MANAGER): Pt happy after YAG right eye (OD). [...] Encounters Date Type Department Care Team Description 06/03/2025 Orders Only [facility] Primary [facility] at [address] [phone] Ptee Molina MD 06/03/2025 Telephone [facility] at [address] [phone] Pete Molina MD Medical Question/Miscellaneo us 04/17/2025 1:00 PM CDT Procedure visit [facility] [address] [facility] [address] [place] [phone] Yessy Graham Au.D. Sensorineural hearing loss (SNHL) of both ears (Primary Dx) 04/17/2025 Telephone [facility] at [address] [phone] Pete Molina MD Aet - Terbinafine Denial 04/10/2025 Telephone [facility] Primary Care at [address] [phone] Pete Molina MD Referral for Audiology 03/14/2025 11:22 AM CDT Anesthesia Event [facility] [address] [place] [address] Wanda Snider MD 03/14/2025 10:45 AM CDT - 03/14/2025 11:15 AM CDT Surgery [facility] [address] [place], [place] [address] Jak Bobo MD SIGMOIDOSCOPY 03/14/2025 9:23 AM CDT - 03/14/2025 12:31 PM CDT Hospital Encounter [facility] [address] [place], [place] [address] Jak Bobo MD Discharge Disposition: Discharge to home or self care 03/12/2025 1:00 PM CDT Office Visit [facility] [address] [facility] Advanced Medicine 8th [place] [address] [place] [address] Ethan Espinal MD SOB (shortness of breath) on exertion (Primary Dx); Tracheobronchomalaci a; Seasonal allergies 03/12/2025 12:12 PM CDT - 03/12/2025 11:59 PM CDT Hospital Encounter [facility] [address] [facility] [address] [place] [address] SOB (shortness of breath) Discharge Disposition: Discharge to home or self care 03/12/2025 10:00 AM CDT Office Visit [facility] Ophthalmology [address] 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) 03/04/2025 Telephone [facility] [address] [facility] 2nd Floor [address] [place] [address] Shirley Walter RN from Last 3 Months Immunizations Immunization Administration Dates Next Due Influenza, Quad, Adjuvantate d, Intramuscular 06/18/2021,06/11/2020 Influenza, Trivalent, Adjuva nted, Intramuscular 06/29/2017 Influenza, Trivalent, High D ose, Split, Preservative Free, Intramuscular 06/04/2019,06/28/2016,06/25/2015,07/01 Influenza, Trivalent, IM (MDV) 06/27/2014,2012 Influenza, Unspecified 06/21/2023,2022(Deferred: Patient Refused),09/05/2022(Deferred: Patient Refused),09/05/2022(Deferred: Patient Refused),06/11/2022(Deferred: Patient Refused),09/05/2021(Deferred: Patient Refused),06/06/2021,06/06/2021, 014 Pfizer SARS-CoV-2 Monovalent Vaccination (12+ Yrs) PURPLE 06/22/2021,06/22/2021,11/08/2020,11/08,10/18/2020,10/18/2020 Pneumococcal Conjugate PCV 13 06/28/2016 Pneumococcal Polysaccharide PPV23 06/12/2018,,06/05/2008 ZOSTER Recombinant 02/03/2021,,12/05/2020,09/30,09/07/2020,09/07/2020 Surgical History Surgery Date Site/Laterality Comments DENTAL SURGERY implants placed CATARACT EXTRACTION W/ INTRAOCULAR LENS IMPLANT 09/08/2015 Right CEIOL OD / 1st eye (Dr. Americo Tom) CATARACT EXTRACTION W/ INTRAOCULAR LENS IMPLANT 09/23/2015 Left CEIOL OS / 2nd eye (Dr. Americo Tom) BLEPHAROPTOSIS REPAIR 09/05/2006 - 09/04/2007 2007 COLONOSCOPY 10/06/2023 - 11/03/2023 UPPER GASTROINTESTINAL ENDOSCOPY COLONOSCOPY 07/31/2024 MYOMECTOMY 09/05/2013 - 09/04/2014 EYE SURGERY 07/17/2019 Right YAG CAP OD (LMT) EYE SURGERY 08/14/2019 Left YAG CAP OS (LMT) BLEPHAROPLASTY Bilateral ANUS SURGERY 11/09/2024 ENDOSCOPIC TRANSANAL MICROSURGERY BLEPHAROPTOSIS REPAIR 01/24/2025 Bilateral Bilateral external Ptosis repair Medical History Medical History Date Comments Hx Other Medical hypothyroidism; Comments: MPB 10/09/2014 - Restless legs syndrome Restless legs syndrome Hypertension pt denies being diagnosed this Dry eyes, bilateral Varicose veins of both lower extremities MVP (mitral valve prolapse) 1996 Ulcerative colitis PMR (polymyalgia rheumatica) Thyroid disease Anxiety and depression Ovarian cyst Uterine fibroid Venous insufficiency Rectal cancer (HCC) Chronic kidney disease stage 1 Tremor, unspecified Pseudophakia, both eyes Dermatochalasis of both upper eyelids 08/23/2024 Glaucoma suspect, bilateral Foll ows w/ Dr. Baumann Optic cupping, bilateral C/D rat io (OD 0.55, OS 0.45) Irritable bowel syndrome Hypothyroidism Glaucoma Anemia Colon polyp GERD (gastroesophageal reflux disease) Obesity Family History * Patient is adopted Medical History Relation Name Comments No Known Problems Brother Ulcerative colitis Daughter Dementia Father Kidney failure Father biological fa ther Breast cancer Father's Sister No Known Problems Maternal Grandfather No Known Problems Maternal Grandmother Kidney failure Mother adopted her No Known Problems Sister 1 No Known Problems Sister 2 Anesthesia problems Neg Hx Relation Name Status Comments Brother Alive Daughter [...] staff should administer the PHQ-9) 0 12/06/2024 [facility] - [...] on file Legal Sex Female 1:22 AM REGISTERED NURSE HH CASE MANAGER Gender Identity Not on file Sexual Orientation Not on file 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 file Not on file Not [...] Sign Reading Time Taken Comments Blood Pressure 131/69 03/14/2025 12:15 PM CDT Pulse 61 03/14/2025 12:20 PM CDT Temperature 37 C (98.6 F) 03/14/2025 11:43 AM CDT Respiratory Rate 27 03/14/2025 12:20 PM CDT Oxygen Saturation 96% 03/14/2025 12:15 PM CDT Inhaled Oxygen Concentration - - Weight 78 kg (172 lb) 03/14/2025 9:50 AM CDT Height 162.6 cm (5' 4) 03/14/2025 9:50 AM CDT Body Mass Index 29.52 03/14/2025 9:50 AM CDT Plan of Treatment Health Maintenance Due Date Last Done Comments Hepatitis B Screening 1963 Osteoporosis Screening-Bone Density Scan 11/02/2024 11/02/2022, 12/10/2021 Covid-19 Vaccine ( season) 2025 06/22/2021, 06/22/2021, 11/08/2020, Additional history exists Influenza Vaccine (#1) 2025 , 06/18/2021, 06/06/2021, Additional history exists Depression Screening 12/06/2025 12/06/2024, 08/23/2024, 05/24/2024, Additional history exists Well Visit 65+ 12/06/2025 12/06/2024, 11/09/2021 Colon Cancer Screening-FIT 03/14/202603/14, 09/20/2024, 07/31/2024, Additional history exists Colon Cancer Screening-FOBT 03/14/2026 03/14/2025, 09/20/2024, 07/31/2024, Additional history exists Fall Risk Assessment 03/14/2026 03/14/2025, 12/06/2024, 08/23/2024, Additional history exists DTaP/Tdap/Td Vaccine (1 - Tdap) 09/04/2026 Postponed from 1958 (Insurance / Financial) Colon Cancer Screening-DNA Stool 03/14/2028 03/14/2025, 09/20/2024, 07/31/2024, Additional history exists Colon Cancer Screening-CT Colonography 03/14/2030 03/14/2025, 09/20/2024, 07/31/2024, Additional history exists Colon Cancer Screening-Sigmoidoscopy 03/14/2030 03/14/2025, 09/20/2024, 07/31/2024, Additional history exists Colon Cancer Screening-Colonoscopy 07/31/2034 07/31/2024, 10/27/2023, 11/21/2018 Colorectal Cancer Screening 07/31/2034 Pneumococcal vaccine 65+ Completed 018, 06/29/2017, 06/28/2016, Additional history exists Zoster Vaccine Completed 02/03/2021, 04/0 10/2020, 12/05/2020, Additional history exists Hepatitis C Screening Completed 11/30/2021 Breast Cancer Screening-Mammogram Discontinued 10/23/2024, 05/21/2023, 12/10/2021 Procedures Procedure Name Priority Date/Time Associated Diagnosis Comments BASIC METABOLIC PANEL Routine 06/03/2025 4:25 PM CDT SODIUM, URINE, RANDOM Routine 06/03/2025 1:58 PM CDT Hyponatremia FLEXIBLE SIGMOIDOSCOPY 03/14/2025 11:27 AM CDT SIGMOIDOSCOPY 03/14/2025 11:23 AM CDT Rectal cancer (HCC) PULMONARY FUNCTION TEST (PFT) Routine 03/12/2025 12:36 PM CDT SOB (shortness of breath) HM MAMMOGRAPHY Routine 10/23/2024 9:43 AM REGISTERED NURSE HH CASE MANAGER COLONOSCOPY 07/31/2024 10:41 AM REGISTERED NURSE HH CASE MANAGER DEXA AXIAL SKELETON BONE DENSITY 1 OR MORE SITES Schedule Routine, Read Routine (OP Routine) 12/10/2021 11:19 AM CDT Screening for osteoporosis Asymptomatic menopausal state HEPATITIS C ANTIBODY Routine 11/30/2021 10:49 AM CDT Encounter for hepatitis C screening test for low risk patient from Last 3 Months or Most Recently Relevant to Health Maintenance Results * (ABNORMAL) Basic metabolic panel (06/03/2025 [...] - 06/04/2025 7:09 AM CDT Performed at: [address] [place] [id number] Director Of Community Center: Ranjit Lucero PhD, Phone: [phone] Pete Molina MD LAB BLOOD ORDERABLES Final Result Performing Organization Address [facility] Phone Number [facility] - 01 * Sodium, urine, random (06/03/2025 1:58 PM CDT) [facility] Sodium, ur 49 Not Estab. mmol/L [facility] - 01 Comment:Verified by repeat analysis Urine 06/03/2025 1:58 PM CDT 06/03/2025 Narrative [facility] - 06/04/2025 12:10 PM CDT Performed at: [address] [place] [id number] Director Of Community Center: Ranjit Lucero PhD, Phone: [phone] Result [facility] Pete Molina MD LAB URINE ORDERABLES Final Result Performing Organization Address [facility] Phone Number [facility] - [facility] * Flexible Sigmoidoscopy (03/14/2025 11:27 AM CDT) Anatomical Region Laterality Modality Other Narrative Procedure Note Jak Bobo MD - 03/14/2025 11:27 AM CDT ENDOSCOPY LAB Patient Name: Emmanuelle Tena Procedure Date: 03/14/2025 11:27 AM Date of : 1945 Admit Type: Outpatient Age: 79 Gender: Female Attending MD: Jak Bobo M.D. Room: [facility] ENDOSCOPY ROOM 02 Note Status: Finalized Procedure: Flexible Sigmoidoscopy Indications: High risk colon cancer surveillance: Personalhistory of malignant rectal polyp s/p endoscopic resectionand TEM resection of scar. surveillance. Providers: Jak Bobo M.D. Referring MD: Pete Molina M.D. Medicines: Monitored Anesthesia Care Complications: No immediate complications. Estimated Blood Loss: Estimated blood loss: none. Procedure: Pre-Anesthesia Assessment: - Immediately prior to administration ofmedications, the patient was re-assessed for adequacy to receive sedatives. The benefits, risks, and alternatives to theprocedure and sedation were discussed and informed consentwas obtained. The [id number] was introducedthrough the anus and advanced to the the sigmoid colon. The flexible sigmoidoscopy was accomplished without difficulty. The patient tolerated the procedurewell. The quality of the bowel preparation was good. Findings: The perianal and digital rectal examinations were normal. A scar was found in the proximal rectum. The scar tissue was healthyin appearance. No evidence of disease The exam was otherwise without abnormality. Impression: - Scar in the proximal rectum. Healthy appearing. - The examination was otherwise normal. - No specimens collected. Recommendation: Repeat flex sig in 4 months. Pelvic MR in . Attending Participation: I was present and participated during the entire procedure, including non-shields portions. Jak Bobo MD Jak Bobo M.D. 03/14/2025 11:52:14 AM Number of Addenda: 0 Note Initiated On: 03/14/2025 11:27 AM Jak Boob MD ENDOSCOPY PROCEDURES Fi nal Result * Pulmonary Function Test - (03/12/2025 12:36 PM CDT) FVC PRE 2.55 L [facility] FVC %PRE PRED 98 % [facility] FEV1 PRE 1.83 L [facility] FEV1 %PRE PRED 92 % [facility] FEV1/FVC PRE 71.8 % [facility] Anatomical Region Laterality Modality PFT 03/12/2025 12:2 4 PM CDT Narrative 03/12/2025 2:44 PM CDT PFT performed at:->[facility] Adult PFT Lab- [facility]- Procedure:->Spirometry Pulmonary Function Test Interpretation SPIROMETRY: Spirometry is normal. The FEV1 and FVC are normal. The FEV1 to FVC ratio is normal. The inspiratory loop is normal. Impression: There is no ventilatory defect. Compared with most recent study, there has been no significant interval change. The attending pulmonary physician certifies a physician presence in the [facility] during the administration of aerosolized bronchodilator. The attending pulmonary physician certifies that he/she has reviewed and interpreted the graphic and numerical data of this pulmonary function study and agrees with the written final report. The lower limit of normal for PaO2 and %HbO2 is age dependent. However, the [facility] Pulmonary Function Laboratory defines hypoxemia as a PaO2 <56 mm Hg or a %HbO2 <89%. Starting on September of 2024 the [facility] Pulmonary Function Laboratory utilizes race neutral GLI Global normative equations. Ethan Espinal MD PFT ORDERABLES F inal Result * HM MAMMOGRAPHY (10/23/2024 9:43 AM REGISTERED NURSE HH CASE MANAGER) Mammography Normal Pete Molina MD HEALTH MAINTENANCE Final Re sult * Colonoscopy (07/31/2024 10:41 AM REGISTERED NURSE HH CASE MANAGER) Anatomical Region Laterality Modality Other Narrative Procedure Note Mark Raines MD - 07/31/2024 10:41 AM CST [facility] GI ENDOSCOPY Patient Name: Emmanuelle Tena Procedure Date: 07/31/2024 10:41AM Date of : 1945 Admit Type: Outpatient Age: 79 Gender: Female Attending MD: Mark Raines MD Room: [facility] ENDOSCOPY ROOM 04 Note Status: Finalized Procedure: [...] The scope was passed under direct vision.The [id number] colonoscope was introduced through theanus and advanced [...] On: 07/31/2024 10:41 AM Recognized by the [employer] for promoting quality in endoscopy us Mark Raines MD ENDOSCOPY PROCEDURES Renetta l Result * Dexa Axial Skeleton Bone Density 1 or 2 Site (12/10/2021 11:19 AM CDT) Anatomical Region Laterality Modality Body N/A Other 12/10/2021 12:4 9 PM CDT Narrative 12/10/2021 12:50 PM CDT EXAM DESCRIPTION: DEXA AXIAL SKELETON BONE DENSITY 1 OR MORE SITES REASON FOR STUDY: 76 y/o year old F with given history of screening. Electronic Prepress System Operator/Model: Versafe SL (S/N [id number]) CLINICAL INFORMATION: Current height: 64.5 inches Maximum [...] Americo Dugan M.D. MF: JUVENCIO Report ID: [id number] Reading Location: [place] [address] Procedure Note Americo Dugan MD - 12/10/2021 EXAM DESCRIPTION: DEXA AXIAL SKELETON BONE DENSITY 1 OR MORE SITES REASON FOR STUDY: 76 y/o year old F with given history ofscreening. Electronic Prepress System Operator/Model: Power Assure Discovery SL (S/N [id number]) CLINICAL INFORMATION: Current height: 64.5 inches Maximum [...] Americo Dugan M.D. MF: JUVENCIO Report ID: [id number] Reading Location: [place] [address] Pete Molina MD IMG DXA PROCEDURES Final Re sult * Hepatitis C antibody (11/30/2021 10:49 AM CDT) [facility] Hep C Ab <0.1 0.0 - 0.9 s/co ratio [facility] - 01 Comment: Negative: < 0.8 Indeterminate: 0.8 - 0.9 Positive: > 0.9 The CDC recommends that a positive HCV antibody result be followed up with a HCV Nucleic Acid Amplification test (675737). Blood specimen (specimen) 11/30/2021 10:49 AM CDT 11/30/2021 Narrative [facility] - 12/01/2021 8:12 AM CDT Performed at: 01 - [facility] [id number] Director Of Community Center: Ranjit Lucero PhD, Phone: [phone] Pete Molina MD LAB MICROBIOLOGY - GENERAL ORDERABLES Final Result [facility] - from Last 3 Months or Most Recently Relevant to Health Maintenance Insurance AET MEDICARE T MEDICARE AET MEDICARE Advance Directives For more information, please contact: [phone] * Full Code (Latest Code Status on File) Date Activated Date Inactivated Comments 03/14/2025 9:44 AM 03/14/2025 4:36 PM * Full Code Date Activated Date Inactivated Comments 11/09/2024 10:08 AM 11/10/2024 5:17 PM * Full Code Date Activated Date Inactivated Comments 09/20/2024 8:03 AM 09/20/2024 1:43 PM Care Teams Jukebox Routeman Relationship Specialty Start Date End Date Pete Molina MD [address] [place] [address] PCP - General Family Medicine 11/09/21 Sergio Eastman MD [address] [place] [address] Consulting Physician Neurology 11/09/21 Daylin Wheatley MD [address] [place] [address] Surgeon Ophthalmology 11/09/21 Tereso Crocker MD [address] [place] [address] Referring Physician Family Medicine 11/09/21 Travis Choudhary MD [address] [facility] [address] [place] [address] Referring Physician Gastroenterology 11/09/21 Gavino Dempsey MD [address] [place] [address] Referring Physician Rheumatology 11/10/22 Sarah Adkins MD [address] [place] [address] Consulting Physician Medical Oncology 08/10/24 Jak Bobo MD [address] [facility] [id number] [place] [address] Surgeon Colon and Rectal Surgery 09/19/24
--- OUTSIDE RECORDS SUMMARY | 2025-06-04 12:01 | XMS_ITS | Clinical Summary ---
Author Organization [facility] Address [address] [place] [address] Care Team Providers Care Business Intelligence Manager Name Role Phone Pete Molina MD Primary Care Provider Source Comments [facility],non-owned Affiliates and Associated Physician Practices is amultiple site organization consisting of ambulatory clinics and hospital sitesin [place], [place], [place] and [place]. This disclosure is being madepursuant to the Care Everywhere program and may not contain all information available regarding this patient. Last updated 18.[facility] Allergies Active Allergy Reactions Criticality Noted Date Comments Clindamycin Rash Medium 12/21/2023 Erythromycin Rash Medium 08/15/2024 Hydrocodone-Acetaminophen Itching Low 07/29/2017 Latex Rash Medium 05/31/2023 Penicillins Urticaria,Rash Medium 07/29/2017 Sulfa Drugs Other 03/27/2024 Sulfacetamide Itching Low 07/29/2017 Sulfur 07/29/2017 Tetracycline Urticaria,Rash Medium 07/29/2017 Tramadol 07/29/2017 Hydrocodone-Acetaminophen 07/29/2017 Medications * This document contains information received from the source organization and may not represent a complete record from that organization. * Be aware that medications may not be up to date on this document. Alwaysverify current medications with the patient. Fexofenadine HCl (DELANEY PO) Active SERTRALINE HCL PO Take 50 mg by mouth once daily Active LEVOTHYROXINE SODIUM PO Take 88 mcg by mouth once daily Active ROPINIRole HCl (REQUIP PO) Take 1 mg by mouth at bedtime Active Fluticasone Propionate (FLONASE NA) Active Mesalamine (ASACOL PO) Take 1 tablet by mouth 2 times daily Active albuterol HFA (PROVENTIL;FARHAT TOLIN;PROAIR) 108 (90 BASE) MCG/ACT inhaler Inhale 2 puffs by mouth every 6 hours as needed 1 Inhaler 7 Active Additional Information Patient not taking.Reported on 05/07/2025 chlorthalidone (Hygroton) 25 MG tablet Take 1 (one) tablet by mouth once daily 90 tablet 3 3 Active Cholecalcifero l (Vitamin D3) 25 MCG (1000 UT) Take 1 (one) capsule by mouth once daily 4 Active umeclidinium-v ilanterol (Anoro Ellipta) 62.5-25 MCG/ACT inhaler Inhale 1 (one) puff by mouth every 6 hours as needed Active acetaminophen CR (Tylenol Arthritis Pain) 650 MG tablet Take 2 (two) tablets by mouth at bedtime Active B Complex Vitamins CAPS Take 1 capsule by mouth at bedtime Active ciclopirox (Penlac) 8 % solution Apply 1 Application to affected area once daily 5 Active polyethyl glycol-propyl glycol (Systane) 0.4-0.3 % ophth solution 1 (one) drop by Ophthalmic route as needed Active terbinafine (LamISIL) 250 MG tablet Take 1 (one) tablet by mouth once daily 5 Active Turmeric 500 MG Active vitamin E (Tocopheryl) 100 UNIT capsule Take by mouth once daily Active gabapentin (Neurontin) 100 MG capsule Take 1 (one) capsule by mouth 3 times daily 90 capsule 4 5 Active potassium chloride ER (Micro-K) 10 MEQ capsuleIndicat ions:Hypokalem ia Take 1 (one) capsule by mouth once daily 90 capsule 3 5 Active predniSONE (Deltasone) 5 MG tabletIndicati ons:Polymyalgi a Rheumatica Take 1 (one) tablet by mouth every morning Note dose reduction effective 05/08/2025. Reasons: Polymyalgia Rheumatica 90 tablet 5 Active predniSONE (Deltasone) 5 MG tabletIndicati ons:Polymyalgi a Rheumatica Take 1-1/2 tablets each morning for a total of 2 months and then 1 tablet each morning until further directions. Reasons: Polymyalgia Rheumatica 90 tablet 5 05/07/20 25 Discontin ued([facility]) Hospital, Clinic, or Other Facility Administered Medication Ordered Dose Route Frequency Start Date End Date Status triamcinolone acetonide (Kenalog-40) injection 40 mgIndications:Greater trochanteric bursitis of left hip 40 mg Intrabursal ONCE 05/07/2025 05/07/2025 Ended Active Problems Problem Noted Date Diagnosed Date Osteopenia after menopause 11/11/2022 Assessment & Plan (11/11/2022 11:40 AM MANUFACTURER'S SERVICE REPRESENTATIVE): DEXA performed at [facility] in [place], [place] on 11/02/2022 indicated a left femoral [...] Encounters Date Type Department Care Team Description 05/08/2025 Telephone [facility] - Rheumatology [address], [address] [place] [address] Gavino Dempsey DO Imaging 05/08/2025 Telephone [facility] - Surgery [address], [address] [place] [address] Ti Valenzuela MA Order 05/07/2025 11:00 AM CDT Office Visit [facility] - Rheumatology [address], [address] [place] [address] Gvaino Dempsey DO Polymyalgia rheumatica syndrome (HCC) (Primary Dx); Greater trochanteric bursitis of left hip from Last 3 Months Immunizations Immunization Administration Dates Next Due INFLUENZA VACCINE 06/21/2023 [...] Date Recorded Patient Health Questionnaire-2 Score 0 05/07/2025 Comments No Sex and Gender Information Value Date Recorded Sex Assigned at Not on file Legal Sex Female 6:00 AM MANUFACTURER'S SERVICE REPRESENTATIVE Gender Identity Not on file Sexual Orientation Not on file Last Filed Vital Signs Vital Sign Reading Time Taken Comments Blood Pressure 100/60 05/07/2025 10:50 AM CDT Pulse 70 05/07/2025 10:50 AM CDT Temperature 36.1 C (97 F) 05/07/2025 10:50 AM CDT Respiratory Rate 16 05/07/2025 10:50 AM CDT Oxygen Saturation 92% 05/07/2025 10:50 AM CDT Inhaled Oxygen Concentration - - Weight 77.1 kg (170 lb) 05/07/2025 10:50 AM CDT Height 162.6 cm (5' 4) 02/21/2025 9:39 AM CDT Body Mass Index 29.18 02/21/2025 9:39 AM CDT Plan of Treatment Upcoming Encounters Date Type Department Care Team (Late st Contact Info) Description 07/09/2025 11:00 AM MANUFACTURER'S SERVICE REPRESENTATIVE Office Visit [facility] - Rheumatology [address], [address] [place] [address] Gavino Dempsey DO [address] [place] [address] Health Maintenance Due Date Last Done Comments HEPATITIS C SCREENING 03/15/1965 DTAP/TDAP/TD VACCINES (1 - Tdap) 1966 PNEUMOCOCCAL VACCINE 50+ (1 of 1 - PCV) 1997 ZOSTER VACCINE (1 of 2) 1997 Respiratory Syncytial Virus (RSV) Vaccine Pt: or over 60 yrs (1 - 1-dose 75+ series) 2022 MEDICARE AWV CALENDAR YEAR 2024 COVID-19 VACCINE ( - season) 2025 06/22/2021, 11/08/2020, 10/18/2020 INFLUENZA VACCINE (#1) 2025 3, 06/06/2021, 06/04/2019, Additional history exists BONE DENSITY TESTING Completed 11/02/2022, 12/11/19 22 [...] complete this topic MENINGOCOCCAL (Group B) VACCINE SHARED DECISION-MAKING Aged Out No longer eligible based on patient's age to complete this topic MENINGOCOCCAL GROUPS A/C/Y/W VACCINE Aged Out No longer eligible based on patient's age to complete this topic Procedures Procedure Name Priority Date/Time Associated Diagnosis Comments DEXA BONE DENSITY AXIAL SKELETON Routine 11/02/2022 from Last 3 Months or Most Recently Relevant to Health Maintenance Results * DEXA BONE DENSITY AXIAL SKELETON (11/02/2022) Anatomical Region Laterality Modality Other Gavino Dempsey DO DEXA ORDERABLES Final Result from Last 3 Months or Most Recently Relevant to Health Maintenance Insurance T AETNA MEDICARE ADV AETNA AETNA MEDICARE ADV SELF PAY NO INSURANCE Member Subscriber Plan / Payer (Ef fective for All Dates) Name:Chantel Tena Member ID:Not on file Relation to Subscriber:Not on file Name:CHANTEL TENA Subscriber ID:Not on file Address: [address] [place] [address] Payer ID:Not on file Group ID:Not on file Type:Self Pay Address: [place], [place] AETNA MEDICARE ADV AETNA MEDICARE ADV AETNA MEDICARE ADV AETNA MEDICARE ADV Care Teams Business Intelligence Manager Relationship Specialty Start Date End Date Pete Molina MD [address] [address] PCP - General Family Medicine 02/02/23
--- OUTSIDE RECORDS SUMMARY | 2025-06-04 12:01 | XMS_ITS | Encounter Summary ---
Author Organization [facility] Address [address] [place] [address] Phone Care Team Providers Care Combat Control Manager Name Role Phone Pete Molina MD Primary Care Provider [phone] Sergio Eastman MD Unavailable Daylin Wheatley MD Unavailable [phone] Tereso Crocker MD Unavailable [phone] Travis Choudhary MD Unavailable [phone] Gavino Dempsey MD Unavailable Sarah Adkins MD Unavailable Jak Bobo MD Unavailable [phone] Encounter Details Date Type Department Care Team (Late st Contact Info) Description 11/06/2024 Orders Only [facility] Medicine Ophthalmology [address] [facility] [address]th [place] [address] William Clarke MD [address] [place] [address] Ptosis of both eyelids (Primary Dx) Social History Tobacco Use Types Packs/Day Years Used Date Smoking Tobacco: Never Passive Smoke Exposure: Never Smokeless Tobacco: Never Alcohol Use Standard Drinks/Week Comments No 0 (1 standard drink = 0.6 oz pur e alcohol) AUDIT-C Answer Date Recorded Q1: How often do you have a drink containing alc ohol? Monthly or less 11/09/2024 Q2: How many drinks containi ng alcohol do you have on a typical day when you are drinking? 1 or 2 11/09/2024 Q3: How often do you have si x or more drinks on one occasion? Never 11/09/2024 PHQ-2 Answer Date Recorded PHQ-2 Total Score (If total score is 3 or more points, staff should administer the PHQ-9) 0 08/23/2024 [facility] - Occupational [...] making you feel afraid or unsafe? Denies 11/09/2024 Education Answer Date Recorded What is the highest level of school you have completed or the highest degree you have received? Some college, no degree 11/09/2021 Comments No Sex and Gender Information Value Date Recorded Sex Assigned at Not on file Legal Sex Female 1:22 AM CHIEF COOK Gender Identity Not on file Sexual Orientation Not on file Occupation Industry Job Start Date Job End Date [employer] Not on file Not on file Not on file documented as of this encounter Functional Status * AUDIT-C Score Answer Date of Assessment Author 1 11/09/2024 6:13 AM Urszula Neville RN * Question Answer Date of Assessment Author Q1: How often do you have a drink containing alcohol? Monthly or less 11/09/2024 6:13 AM Noris Neville RN Q2: How many drinks containing alcohol do you have on a typical day when you are drinking? 1 or 2 11/09/2024 6:13 AM Noris Neville RN Q3: How often do you have six or more drinks on one occasion? Never 11/09/2024 6:13 AM Noris Neville RN documented as of this encounter Plan of Treatment Not on file documented as of this encounter Procedures Procedure Name Priority Date/Time Associated Diagnosis Comments GVF LIMITED/PTOSIS - OU - BOTH EYES Routine 12/12/2024 2:10 PM CDT Ptosis of both eyelids documented in this encounter Results * GVF Limited/Ptosis - OU - Both Eyes (12/12/2024 2:10 PM CDT) Anatomical Region Laterality Modality Head Visual Field Narrative 12/12/2024 2:10 PM CDT Right Eye Fixation was good. Cooperation was good. Reliability was good. Left Eye Fixation was good. Cooperation was good. Reliability was good. Notes Findings: Right eye (OD): Untaped superior meridian at 3 degrees and taped superior meridian at 29 degrees. Left eye (OS): Untaped superior meridian at 3 degrees and taped superior meridian at 25 degrees. Impression: Significant improvement in superior visual field with elevation bilaterally. William Clarke MD OPHTH VISUAL FIELD Final Result documented in this encounter Visit Diagnoses Diagnosis Ptosis of both eyelids- Primary Unspecified ptosis of eyelid documented in this encounter Care Teams Combat Control Manager Relationship Specialty Start Date End Date Pete Molina MD [address] [place] [address] PCP - General Family Medicine 11/09/21 Sergio Eastman MD [address] [place] [address] Consulting Physician Neurology 11/09/21 Daylin Wheatley MD [address] [place] [address] Surgeon Ophthalmology 11/09/21 Tereso Crocker MD [address] [place] [address] Referring Physician Family Medicine 11/09/21 Travis Choudhary MD [address] [facility] [address] [place] [address] Referring Physician Gastroenterology 11/09/21 Gavino Dempsey MD [address] [place] [address] Referring Physician Rheumatology 11/10/22 Sarah Adkins MD [address] [place], [place] [id number] Consulting Physician Medical Oncology 08/10/24 Jak Bobo MD [address] [facility] [id number] [place] [address] Surgeon Colon and Rectal Surgery 09/19/24 documented as of this encounter
== END 2025-06-04 11:54 | disposition home or self-care (01) ==
LOC: CHSIMG 11:56
PROVIDERS: Visit Provider Internal Medicine Rheumatology
DX: Z78.0 Asymptomatic menopausal state (principal); Z79.52 Long term (current) use of systemic steroids; M85.89 Other specified disorders of bone density and structure, multiple sites
CPT/HCPCS: 77080